=== PATIENT | male | born 1970 | race Caucasian/White ===

== ENCOUNTER 2022-09-01 06:43 | Inpatient (IN) | payer OTHER, SELFPAY ==
[2022-09-01] VITALS (26 sets, daily range): BP systolic 120–156; BP diastolic 63–101; PULSE 72–108; RESP 14–20; TEMP 36.3–37.7; O2SAT 95–99
--- NOTE | 2022-09-01 07:28 | CRLHL7_ITS ---
For Patients: As a result of the Century Cures Act, medical imaging exams and procedure reports are released immediately into your electronic medical record. You may view this report before your referring provider. If you have questions, please contact your health care provider. INDICATION: Left lower quadrant abdomen pain. TECHNIQUE: CT abdomen and pelvis acquired with 100 cc Isovue 370 IV contrast. COMPARISON: None. FINDINGS: Lower chest: Unremarkable. Liver: Unremarkable. Normal in size and attenuation. No suspicious masses. Gallbladder and bile ducts: Unremarkable. No stones or inflammation. No biliary dilatation. Pancreas: Unremarkable. No mass or inflammation. Spleen: Unremarkable. Normal in size. No masses. Adrenal glands: Unremarkable. No nodules. Kidneys: Unremarkable. No suspicious masses, stones, or hydronephrosis. GI tract: Severe sigmoid diverticulosis. Acute inflammation is present amongst diverticula in the proximal sigmoid. No abscess. However, there is free air scattered in the anterior abdomen. Remainder of the GI tract and appendix are normal. Vasculature: Abdominal aorta is normal in caliber. Mesenteric arteries are patent. Lymph nodes: No lymphadenopathy. Peritoneum/Abdominal Wall: Unremarkable. No sign of mass or infiltration. No free air or significant free fluid. Pelvis: Unremarkable. Bones: Unremarkable for age. IMPRESSION: Acute sigmoid diverticulitis with scattered free air consistent with a ashley perforation. No abscess. No other acute or significant findings. Please note that all CT scans at this facility use dose modulation, iterative reconstruction, and/or weight-based dosing when appropriate to reduce radiation dose to as low as reasonably achievable. Dictated by Serg Marrero MD @ 09/01/2022 8:55:41 AM (Electronically Signed)
--- NOTE | 2022-09-01 07:52 | ED_ITS ---
did not see this patient. signing to remove from cue. Siva HPI - General Adult General Date Seen: 09/01/22 Chief complaint: Abdominal Pain Stated complaint: Stomach feels like its about to burst Time Seen by Provider: 09/01/22 07:22 Source: patient Mode of arrival: ambulatory Limitations: no limitations History of Present Illness HPI narrative: Patient is a 51-year-old male who is visiting [place] while his son is attending a soccer camp. He felt well yesterday morning and then developed some abdominal pain after lunch. This got worse in the evening after eating some pizza. He tells me that he has had diverticulitis in the past although this was a clinical diagnosis that resolved without antibiotics apparently. He has had some chills but no fever. The pain was severe enough during the night that he was unable to sleep. He denies symptoms of acid reflux. He has only taken ibuprofen for the pain thus far. No nausea or vomiting. No diarrhea. He attempted to force himself to have a bowel movement but was unable. He does not believe that this is constipation related. Related Data Allergies Allergy/AdvReac Type Severity Reaction Status Date / Time Penicillins Allergy Severe Hives Verified 09/01/22 09:33 Review of Systems Narrative: Review of systems is outlined above otherwise noted to be negative. [facility] Medical History (Updated 09/05/22 @ 10:18 by Linda Paige MD) History of open sigmoidectomy ?Z98.890 - Other specified postprocedural states (ICD-10) ?Z90.49 - Acquired absence of other specified parts of digestive tract (ICD- 10) No significant past medical history Surgical History (Updated 09/01/22 @ 10:52 by Linda Paige MD) S/P pyloromyotomy, follow-up exam ?Z09 - Encounter for follow-up examination after completed treatment for conditions other than malignant neoplasm (ICD-10) Exam Narrative: Exam Narrative: Vitals noted. HEENT: Conjunctiva clear. Neck is supple without adenopathy, thyromegaly. Lungs: Clear to auscultation in all paz. No wheezes, rales, rhonchi. Heart: Regular rate and rhythm without murmur. Abdomen: He has tenderness in the left lower quadrant. No guarding, rigidity, rebound. Bowel sounds are normal. No palpable masses. No CVA tenderness. Extremities: No cyanosis or edema. Good distal pulses. Skin: No abnormalities noted of the exposed skin. Neurologic: Awake, alert, fully oriented. Neurologic exam is nonfocal. Const: Vital Signs, click to edit/add: Vital Signs - 24 hr 09/01/22 07:02 09/01/22 08:40 09/01/22 09:19 Temperature 98.3 F 99.7 F H Pulse Rate [Right Pulse Oximeter] 108 H 91 Respiratory Rate 18 18 Blood Pressure [Ri ght Upper Arm] 120/77 156/85 H Pulse Oximetry 95 Oxygen Delivery Me thod Room Air 09/01/22 09:27 09/01/22 09:30 09/01/22 10:00 Temperature 99.7 F H 99.8 F H Pulse Rate [Right Pulse Oximeter] 95 97 105 H Respiratory Rate 18 20 18 Blood Pressure [Ri ght Upper Arm] 124/101 H 141/92 H 134/92 H Pulse Oximetry 97 99 98 Oxygen Delivery Me thod Room Air Room Air Room Air Course Course Hospital Course: Patient seen and examined. Labs and CT of his abdomen are ordered. Reevaluation(s) Reevaluation #1: His labs revealed a white blood count of 15.6 with 89% neutrophils. Basic metabolic panel shows a BUN of 26 and a creatinine of 1.2 and a glucose of 158. LFTs are normal. Lipase is normal. CT of the abdomen pelvis with IV contrast shows extensive sigmoid diverticulosis with diverticulitis and free air indicating perforation. At this point a dose of ertapenem and a L of IV fluids are ordered along with Toradol 30 mg for pain. I discussed the case with Dr. Paige who will be coming in to see him. Vital Signs Vital signs: Initial Vital Signs Temperature 98.3 F 09/01/22 07:02 Temperature Source Temporal Artery Scan 09/01/22 07:02 Pulse Rate 108 H 09/01/22 07:02 Pulse Rhythm Regular 09/01/22 07:02 Respiratory Rate 18 09/01/22 07:02 Blood Pressure 120/77 09/01/22 07:02 Blood Pressure Mean 91 09/01/22 07:02 Blood Pressure Position Sitting 09/01/22 07:02 Pulse Oximetry 95 09/01/22 07:02 Oxygen Delivery Method Room Air 09/01/22 07:02 Vital Signs Temperature 98.3 F 09/01/22 07:02 Pulse Rate 108 H 09/01/22 07:02 Respiratory Rate 18 09/01/22 07:02 Blood Pressure 120/77 09/01/22 07:02 Pulse Oximetry 95 09/01/22 07:02 Oxygen Delivery Method Room Air 09/01/22 07:02 Temperature 98.3 F 09/05/22 11:00 Pulse Rate 84 09/05/22 11:00 Respiratory Rate 16 09/05/22 11:00 Blood Pressure 146/83 H 09/05/22 11:00 Pulse Oximetry 95 09/05/22 11:00 Oxygen Delivery Method Room Air 09/05/22 11:00 Medical Decision Making Lab Data Labs: Lab Results 09/01/22 09/01/22 09/01/22 Range/Units 07:28 07:45 10:19 WBC 15.59 H (4.50-11.00) K/uL RBC 5.05 (4.30-5.90) m/uL Hgb 15.1 (13.5-17.5) gm/dL Hct 45.1 (37.0-53.0) % MCV 89 (80-100) fL MCH 30 (26-34) pg MCHC 34 (32-36) gm/dL RDW Coeff of Tam 12.8 (11.5-15.5) % Plt Count 371 (140-440) K/uL Neut % (Auto) 88.6 H (42.0-72.0) % Lymph % (Auto) 4.2 L (20-44) % Greer % (Auto) 6.9 (0.0-11.0) % Eos % (Auto) 0.0 (0.0-7.0) % Baso % (Auto) 0.1 (0.0-3.0) % Neut # (Auto) 13.80 H (1.7-7.0) K/uL Lymph # (Auto) 0.70 L (0.90-2.90) K/uL Greer # (Auto) 1.10 H (0.00-0.90) K/UL Eos # (Auto) 0.00 (0.00-0.50) K/uL Baso # (Auto) 0.00 (0.00-0.30) K/uL Sodium 137 (135-149) mmol/L Potassium 4.1 (3.6-5.1) mmol/L Chloride 104 (96-114) mmol/L Carbon Dioxide 26 (20-32) mmol/L BUN 26 H (5-24) mg/dL Creatinine 1.2 (0.5-1.5) mg/dL Estimated GFR 74 ml/min Glucose 158 H (60-115) mg/dL Calcium 9.2 (8.4-10.6) mg/dL Total Bilirubin 0.9 (0.1-1.5) mg/dL Direct Bilirubin 0.1 (0.0-0.5) mg/dL AST 32 (12-35) U/L ALT 26 (4-50) U/L Alkaline Phosphatase 58 (40-150) U/L Total Protein 7.2 (6.0-8.3) g/dL Albumin 4.3 (3.3-5.0) g/dL Lipase 63 (23-300) U/L Urine Color Red A (Yellow) Urine Appearance Slightly Cloudy A (Clear) Urine pH 5.5 (5.0-8.5) Ur Specific [place] >= 1.030 (1.000-1.030) Urine Protein 2+ A (Negative) Urine Glucose (UA) Negative (Negative) Urine Ketones 2+ A (Negative) Urine Blood 3+ A (Negative) Urine Nitrite Positive A (Negative) Urine Bilirubin 1+ A (Negative) Urine Urobilinogen 1.0 (0.2-1.0) Ur Leukocyte Esterase Negative (Negative) Urine RBC 25-50 A (0-2) Urine WBC 5-10 A (0-5) Ur Squamous Epith Cells Moderate A (None-Few) Urine Bacteria Moderate A (None) WBC Casts Few A (None) Urine Mucus Moderate A (None) Blood Type A Positive Antibody Screen NEGATIVE Discharge Plan Discharge Clinical Impression: Nontraumatic perforation of large intestine, Diverticulitis Patient Disposition: Home, Self-Care Condition: Stable Activity Level: No strenuous activity Activity Detail: No lifting more than 20 pounds for 4-6 weeks Discharge Diet: Other Diet Detail: Ileostomy diet: Drink 8 to 10 cups of fluid per 24 hours. Avoid caffeine and high sugary drinks as these will stimulate the small intestine and increase stoma output. Foods that you should incorporate with each meal to thicken stool include bananas, cheese, pasta, rice, potatoes, bread, peanut butter and tapioca. Having one or two of these foods as a bedtime snack will also help keep the stool thicker overnight. Only consume about 4 ounces of fluid with each meal in order not to wash food through small intestine.
[2022-09-01 07:53] LABS: Basophils Percent Auto 0.1 % (0.0-3.0); Hematocrit 45.1 % (37.0-53.0); Hemoglobin* 15.1 gm/dL (13.5-17.5); Immature Granulocytes Pct Auto 0.2 %; Lymphocytes Percent Auto 4.2 % (20-44); Mean Corpuscular HGB Conc 34 gm/dL (32-36); Mean Corpuscular Hemoglobin 30 pg (26-34); Mean Corpuscular Volume 89 fL (80-100); Monocytes Percent Auto 6.9 % (0.0-11.0); Neutrophils Percent Auto 88.6 % (42.0-72.0); Platelet Count* 371 K/uL (140-440); RDW Coefficient of Variation % 12.8 % (11.5-15.5); Red Blood Count 5.05 m/uL (4.30-5.90); White Blood Count* 15.59 K/uL (4.50-11.00)
[2022-09-01 08:00] LABS: Slide Review Reflex No
[2022-09-01 08:02] LABS: Albumin* 4.3 g/dL (3.3-5.0)
[2022-09-01 08:03] LABS: Chloride* 104 mmol/L (96-114); Potassium* 4.1 mmol/L (3.6-5.1); Sodium* 137 mmol/L (135-149)
[2022-09-01 08:05] LABS: Aspartate Amino Transferase* 32 U/L (12-35); Bilirubin Direct* 0.1 mg/dL (0.0-0.5); Bilirubin Total* 0.9 mg/dL (0.1-1.5); Blood Urea Nitrogen* 26 mg/dL (5-24); Carbon Dioxide* 26 mmol/L (20-32); Creatinine* 1.2 mg/dL (0.5-1.5); Estimated Glomerular Filt Rate 74 ml/min; Total Protein* 7.2 g/dL (6.0-8.3)
[2022-09-01 08:06] LABS: Alanine Aminotransferase* 26 U/L (4-50); Alkaline Phosphatase* 58 U/L (40-150); Calcium* 9.2 mg/dL (8.4-10.6); Glucose* 158 mg/dL (60-115); Lipase* 63 U/L (23-300)
[2022-09-01] MEDS: KETOROLAC 30 MG/ML inj IVP (09:19)
[2022-09-01] MEDS: LACTATED RINGERS 1000 ML 1,000 ML 500 ML IV (09:20)
--- NOTE | 2022-09-01 09:41 | ED.NURSE ---
Dr. Paige in with patient for consult.
--- NOTE | 2022-09-01 10:17 | ED.NURSE ---
Per Raimundo LICENSED CLINICIAN, to start ertapenem at 1030.
[2022-09-01] MEDS: ERTAPENEM 1 GM in 0.9 % SODIUM CHLORIDE Mini-bag 100 ML IVPB (10:33)
--- NOTE | 2022-09-01 10:35 | W.ANESCHARGE ---
Anesthesia Charges Start Date/Time Anesthesia Start Date: 09/01/22 Anesthesia Start Time: 11:13 Stop Date/Time Anesthesia Stop Date: 09/01/22 Anesthesia Stop Time: 15:53 Summary Emergency: MDA
--- NOTE | 2022-09-01 10:49 | PM.GSHP ---
History of Present Illness History of Present Illness Date Seen: 09/01/22 Chief complaint: Stomach feels like its about to burst Narrative: Jarda Guerrero is a 51 year old male who presents to the ER today with abdominal pain. He states that he has been down in [place] from [facility] playing in a father sent soccer game. He states that he played yesterday and was drinking a large amount of water and then had some pizza and went to bed. Around 11:00 p.m. he developed pain in his left lower quadrant. This has been similar to pain that he has had previously which was thought to be diverticulitis. When he would move the pain would be worse. He had some nausea with this but no vomiting. Over the course of the evening his pain became much worse and he was unable to sleep. He states that he felt as though his abdomen was going to explode. Because of this he came into the emergency department for evaluation. He has had a low-grade fever since he has been in the emergency department. He states that he had a bowel movement yesterday. He states that his bowel movements are almost always loosen have been his whole life. He does not take any fiber supplements. He states that approximately 1 year ago he had left lower quadrant pain which was thought to be diverticulitis. This went away with a liquid diet and no antibiotics. This was not CT confirmed. Three weeks ago he had similar symptoms and again his symptoms went away with a liquid diet and no antibiotics. Again this is never been CT confirmed. He has never had a colonoscopy. His family history is significant for colon cancer in 1 maternal uncle. [facility] Medical History (Updated 09/01/22 @ 10:52 by Linda Paige MD) No significant past medical history Surgical History (Updated 09/01/22 @ 10:52 by Linda Paige MD) S/P pyloromyotomy, follow-up exam ?Z09 - Encounter for follow-up examination after completed treatment for conditions other than malignant neoplasm (ICD-10) Meds Home Medications and Allergies Allergies Allergy/AdvReac Type Severity Reaction Status Date / Time Penicillins Allergy Severe Hives Verified 09/01/22 09:33 Exam Narrative: Exam Narrative: General appearance: Alert, cooperative, and in no distress Eyes: PERRLA, eye lids clear, and sclera white HENT Head: Normocephalic Ears: External ears normal Pulmonary: Clear to auscultation bilaterally Cardiovascular Heart: Regular rate and rhythm Extremities: warm and well perfused Gastrointestinal Abdominal: Midline horizontal scar from prior pyloromyotomy as a child. He is tender in the left lower quadrant he does have guarding. Abdominal pain is diffuse. Musculoskeletal: Extremities: Upper: Both upper extremities have normal joint range of motion and intact strength. Lower: Both lower extremities have normal joint range of motion and intact strength. Skin: Normal skin color, texture, and turgor. Neurologic: No focal deficits Psychiatric: Alert, oriented, cooperative, normal affect. Const: Vital Signs, click to edit/add: Vital Signs - 24 hr 09/01/22 07:02 09/01/22 08:40 09/01/22 09:19 Temperature 98.3 F 99.7 F H Pulse Rate [Right Pulse Oximeter] 108 H 91 Respiratory Rate 18 18 Blood Pressure [Ri ght Upper Arm] 120/77 156/85 H Pulse Oximetry 95 Oxygen Delivery Me thod Room Air 09/01/22 09:27 09/01/22 09:30 09/01/22 10:00 Temperature 99.7 F H 99.8 F H Pulse Rate [Right Pulse Oximeter] 95 97 105 H Respiratory Rate 18 20 18 Blood Pressure [Ri ght Upper Arm] 124/101 H 141/92 H 134/92 H Pulse Oximetry 97 99 98 Oxygen Delivery Me thod Room Air Room Air Room Air Results Results Labs: White blood cell count is elevated at 15. BUN mildly elevated at 26. Creatinine 1.2; electrolytes within normal limits. LFTs and lipase are within normal limits. Abdomen CT scan report/results: report reviewed and image reviewed Additional studies: INDICATION: Left lower quadrant abdomen pain. TECHNIQUE: CT abdomen and pelvis acquired with 100 cc Isovue 370 IV contrast. COMPARISON: None. FINDINGS: Lower chest: Unremarkable. Liver: Unremarkable. Normal in size and attenuation. No suspicious masses. Gallbladder and bile ducts: Unremarkable. No stones or inflammation. No biliary dilatation. Pancreas: Unremarkable. No mass or inflammation. Spleen: Unremarkable. Normal in size. No masses. Adrenal glands: Unremarkable. No nodules. Kidneys: Unremarkable. No suspicious masses, stones, or hydronephrosis. GI tract: Severe sigmoid diverticulosis. Acute inflammation is present amongst diverticula in the proximal sigmoid. No abscess. However, there is free air scattered in the anterior abdomen. Remainder of the GI tract and appendix are normal. Vasculature: Abdominal aorta is normal in caliber. Mesenteric arteries are patent. Lymph nodes: No lymphadenopathy. Peritoneum/Abdominal Wall: Unremarkable. No sign of mass or infiltration. No free air or significant free fluid. Pelvis: Unremarkable. Bones: Unremarkable for age. IMPRESSION: Acute sigmoid diverticulitis with scattered free air consistent with a ashley perforation. No abscess. No other acute or significant findings. Please note that all CT scans at this facility use dose modulation, iterative reconstruction, and/or weight-based dosing when appropriate to reduce radiation dose to as low as reasonably achievable. Dictated by Serg Marrero MD @ 09/01/2022 8:55:41 AM Assessment and Plan Assessment and plan (1) Diverticulitis: Status: Acute (2) Nontraumatic perforation of large intestine: Status: Acute (3) Sepsis: Status: Acute (4) Peritonitis: Status: Acute Plan The patient is a 51-year-old male with perforated diverticulitis with peritonitis. He and I discussed diverticular disease as well as management of perforation. Because he has free air and a ashley perforation as well as peritonitis and a septic picture I explained that emergent surgery was necessary. We will plan for sigmoidectomy and a stoma. We discussed diverting ileostomy if I am able to safely lead section supervisor his colon verses an end colostomy if reconnection is not possible at the index operation. He understands that the stoma is not necessarily a permanent situation and the timing of stoma takedown depends on multiple factors but generally can occur within 6 months. We discussed risks of surgery including bleeding, injury to other structures, infection and recovery. He is agreeable to proceed and signed informed consent. We are planning on proceeding to the OR emergently this morning.
--- NOTE | 2022-09-01 10:59 | ED.NURSE ---
Antibiotic infusion complete. Raimundo from Surgery aware.
--- NOTE | 2022-09-01 11:24 | P.NB_ITS ---
Nerve Block Nerve Block Time Seen by Provider: 11:21 Date Seen: 09/01/22 Type of block requested by surgeon for post-operative analgesia: TAP Side: bilateral Time out performed: Yes Verification of patient name: Yes Verification of date of : Yes Site marking: site marked Name of person performing procedure: Amos Continuous monitoring Was continuous monitoring of O2 sat, B/P, nurse monitoring, recorded every 15 minutes?: Yes Procedure Checklist: sterile prep, needles and gloves Ultrasound guided. Images saved: Yes Medications given in 5ml increments after negative aspiration: Marcaine %: 0.25 mL: 30 Needle gauge: 20 and Exparel mL: 10 Patient tolerated procedure well: Yes Additional comments: Needle noted adjacent to nerve Block Charges Block Charge (with Pro Fee): TAP Bilateral Use of Ultrasound Machine for Block: Yes- US Guidance/pain block
[2022-09-01] MEDS: LACTATED RINGERS 1000 ML 1,000 ML 100 ML IV ×2 (12:38→21:20)
[2022-09-01] MEDS: LACTATED RINGERS 1000 ML 1,000 ML 125 ML IV ×2 (12:45→14:57)
--- NOTE | 2022-09-01 13:55 | SUR.OPER ---
Flashed Instruments: EEA sizers, used during procedure, batch # ([id number])
--- NOTE | 2022-09-01 15:54 | W.ANESCHARGE ---
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
--- NOTE | 2022-09-01 16:08 | P.GSOP_ITS ---
Operative Note Date of procedure: 09/01/22 Pre-op diagnosis: Perforated diverticulitis with peritonitis Post-op diagnosis: same Type of Procedure: 1. Exploratory laparotomy 2. Sigmoidectomy with reanastomosis 3. Diverting loop ileostomy Indications: the patient is a 51-year-old male who presented to the emergency department with abdominal pain. Workup revealed elevated white blood cell count as well as diffuse free air within the abdominal cavity. It appeared as though this was secondary to perforated diverticulitis. I discussed with the patient that this necessitated emergent surgery and he agreed to proceed. Procedure Description: After discussing the risks and benefits of the procedure, the patient signed informed consent.? The operative site was marked and the patient was brought to the operating room and placed on the operating table in supine position.? Care was taken to pad the patient's pressure points.?? The patient was then intubated by anesthesia.?? The anesthesiologist then performed TAP blocks. Please see his note for details. The patient was then placed in modified lithotomy position and a Tee catheter was placed. The abdomen was then prepped and draped in the usual sterile fashion. A midline incision was then created from just above the umbilicus to superior to the pubis. Dissection was taken down into the subcutaneous tissue using cautery. This was taken down to and through the fascia. The abdominal cavity was then entered and there was purulent fluid noted. This was suctioned. I was able to palpate the sigmoid colon which felt firm. I then placed the patient in slight Trendelenburg position and brought an Omni retractor into the field. The abdominal wall was then retracted to expose the pelvis and the small bowel was then packed into the upper right abdomen. I then noted a perforation of the anti mesenteric border of the sigmoid which appeared to be connected to a diverticulum. I began by incising the peritoneum on the lateral pelvic attachment of the sigmoid. Once I was able to mobilize the sigmoid medially, with care to stay on the sigmoid to avoid injury of the ureter and other pelvic structures, I identified an area of healthy sigmoid proximal to the perforation. I created a mesenteric window using cautery and divided the sigmoid using the a load DIVYA stapler. I then divided the mesentery of the sigmoid down to the superior rectum using the LigaSure. Once I reached this area I divided the superior rectum using a contour stapler. The specimen was marked with a stitch distally and sent to pathology. There was a small amount of bleeding in the mesentery of the rectum. This was oversewn with suture which resulted in he mostasis. I then examined the distal colon. It actually fell into the pelvis because the portion of sigmoid which was removed was quite redundant, however I mobilized the lateral peritoneal attachments of the descending colon using cautery. I mobilized this up to the splenic flexure. Again the colon fell easily into the pelvis and therefore I elected not to extend my incision to completely mobilize the splenic flexure since there was no tension. I used a Doppler to confirm that there was perfusion all the way to the staple line of the proximal colon. I then grasped the staple line with a Jeny clamp and, using careful dissection with a mosquito dissected away the pericolonic fat. Small bleeding vessels were ligated. Once this was done I removed the staple line with a scissor and sent the staple line to pathology as proximal margin (the anastomotic rings would also be included with this). I placed the anvil of a 31 mm EEA stapler into the opening and using a 2 0 Prolene created a pursestring suture. I then secured this suture around the anvil and again cleaned off the colonic fat. Small bleeding vessels were tied with 3-0 Vicryl. There was a small diverticulum which was included in the 2nd pursestring which was placed around the anvil using 2-0 Prolene. Once this was done I then performed a proctoscopy. The patient had 20 cm of rectum. There was stool in the rectal vault. I did have my assistant basketball coach manually push on the rectum and then I performed irrigation with tap water. Once the rectum was cleared of gross stool, using the dilators I then passed these sequentially. They passed easily into the rectal stump. I then passed the 31 mm EEA stapler through the anus and into the rectum. I was able to deploy the trocar through the staple line in the middle of the rectal stump. My assistant basketball coach then connected this to the trocar and I closed the stapler. I then placed a sterile glove and sleeve on to double check that there were no intervening structures or bowel in the way. I then fired the stapler in waited 30 seconds. I removed the stapler per manufacture's instructions and examined the anastomotic rings. These were both intact. I then performed proctoscopy. I was not able to visualize the staple line itself as there was still a small amount of stool lining the inside of the rectum, however there was no bleeding noted. A leak test was negative. I then scrubbed back in and the abdomen was examined. The small bowel was run from the ligament of Treitz to the ileocecal valve. There were no other signs of perforation or injury. I felt in the right and left upper quadrant. There were no pockets of purulence there. I did not feel any masses or inflammation in the upper abdomen. I then irrigated the abdomen with copious warm saline. This ran clear. I then chose an area on the abdominal wall lateral to the umbilicus on the right. I then created a circular incision in the skin using cautery. Dissection was taken down to the rectus fascia again using cautery. I then incised the rectus fascia with a cruciate incision. The rectus muscle fibers were and I was able then to create a cruciate incision in the posterior fascia. This was big enough to admit 2 fingers. I then identified a portion of ileum which was approximately 30 cm proximal to the ileocecal bowel. This came up easily through the stoma trephine. At this point a closing tray was obtained and I closed the fascia with looped 0 Maxon in a running fashion. Because of the purulence in the abdomen, I decided to leave a portion of the incision open because of risk of wound infection. Therefore I closed the superior middle and inferior aspects of the incision with 3-0 Vicryl dermal sutures and 4-0 Monocryl running subcuticular sutures, leaving a small area superior to the umbilicus as well as inferior to the umbilicus open. These were packed with iodoform gauze. Steri-Strips were placed over the sutured areas of the incision and a sterile dressing was applied. I then turned my attention to maturing the stoma. Using cautery I created an incision transversely through the anti mesenteric border of the ileum. I then matured the stoma in a Mary fashion to the dermis circumferentially. The stoma was well perfused and blood quite easily with each needle stick. I was able to pass my finger through both the proximal and distal limbs through the fascia. The suture line was hemostatic at the end the case, however because it had blood so easily while maturing the stoma, I placed Surgicel over the suture line before applying the stoma appliance to ensure hemostasis. The patient was then woken and transported to the recovery area in stable condition. ? The patient tolerated the procedure well. Findings: Perforation of the sigmoid with purulent peritonitis. Anesthesia: GETA Surgeon: Linda Paige MD Estimated blood loss (mL): 25 Additional Specimen Information: 1. Sigmoid colon, stitch distal 2. Proximal margin and anastomotic rings Condition: stable Disposition: PACU
[2022-09-01] MEDS: HYDROmorphone 0.5 mg/0.5 ml inj IVP ×2 (17:02→22:16)
[2022-09-01] MEDS: KETOROLAC 15 MG/ML inj IVP (19:31)
[2022-09-01] MEDS: CARBOXYMETHYLCELLULOSE (REFRESH PLUS) TEARS 1 DROP EYE-BOTH (19:32)
[2022-09-01] MEDS: SODIUM CHLORIDE 0.9 % (FLUSH) 10 ML SYRINGE IVF ×2 (19:32→22:17)
[2022-09-02] MEDS: HYDROmorphone 0.5 mg/0.5 ml inj IVP ×5 (02:09→13:36)
[2022-09-02] MEDS: KETOROLAC 15 MG/ML inj IVP ×3 (02:19→21:53)
[2022-09-02 02:25] VITALS: BP 116/79; PULSE 78; RESP 16; TEMP 36.7; O2SAT 97
--- NOTE | 2022-09-02 04:24 | PC.NURSE ---
: Pt's vss on ra, tolerating ice chips and whitt output adequate. Bowels absent but noted flatus in the ostomy bag this morning, was emptied once prior serosanguinous 10cc, stoma has dressing/mesh covered, nippled, midline incision has bottom 1/4 or so dressing with serosanguinous drainage, will be changed today, not weeping through gauze. Pain controlled with dilaudid/toradol, has turned and repositioned in bed, will attempt to stand up this morning.
[2022-09-02 06:54] LABS: Basophils Percent Auto 0.1 % (0.0-3.0); Eosinophils Percent Auto 0.1 % (0.0-7.0); Hematocrit 40.6 % (37.0-53.0); Hemoglobin* 13.3 gm/dL (13.5-17.5); Immature Granulocytes Pct Auto 0.2 %; Lymphocytes Percent Auto 9.6 % (20-44); Mean Corpuscular HGB Conc 33 gm/dL (32-36); Mean Corpuscular Hemoglobin 30 pg (26-34); Mean Corpuscular Volume 92 fL (80-100); Monocytes Percent Auto 7.2 % (0.0-11.0); Neutrophils Percent Auto 82.8 % (42.0-72.0); Platelet Count* 363 K/uL (140-440); RDW Coefficient of Variation % 13.4 % (11.5-15.5); Red Blood Count 4.43 m/uL (4.30-5.90); White Blood Count* 12.49 K/uL (4.50-11.00)
[2022-09-02 07:00] VITALS: BP 128/69; PULSE 92; RESP 16; TEMP 37.2; O2SAT 95
[2022-09-02 07:00] LABS: Slide Review Reflex No
[2022-09-02 07:02] LABS: Chloride* 104 mmol/L (96-114)
[2022-09-02 07:03] LABS: Potassium* 3.8 mmol/L (3.6-5.1); Sodium* 133 mmol/L (135-149)
[2022-09-02 07:05] LABS: Estimated Glomerular Filt Rate 92 ml/min
[2022-09-02 07:06] LABS: Blood Urea Nitrogen* 17 mg/dL (5-24); Calcium* 8.3 mg/dL (8.4-10.6); Carbon Dioxide* 28 mmol/L (20-32); Glucose* 113 mg/dL (60-115)
[2022-09-02] MEDS: LACTATED RINGERS 1000 ML 1,000 ML 100 ML IV (07:56)
[2022-09-02] MEDS: HYDROCODONE-ACETAMIN 5-325 MG 1 TAB PO ×4 (09:09→21:17)
[2022-09-02] MEDS: ERTAPENEM 1 GM in 0.9 % SODIUM CHLORIDE Mini-bag 100 ML IVPB (09:59)
[2022-09-02 12:08] LABS: Appearance Urine Slightly Cloudy (Clear); Bilirubin Urine 1+ (Negative); Blood Urine 3+ (Negative); Color Urine Red (Yellow); Glucose Urine Negative (Negative); Ketones Urine 2+ (Negative); Leukocyte Esterase Urine Negative (Negative); Nitrite Urine Positive (Negative); Protein Urine 2+ (Negative); Specific Gravity Urine >= 1.030 (1.000-1.030); pH Urine 5.5 (5.0-8.5)
[2022-09-02 12:24] LABS: RBC Urine 25-50 (0-2)
[2022-09-02 12:25] LABS: Squamous Epithelial Cell Urine Moderate (None-Few)
[2022-09-02 12:26] LABS: Bacteria Urine Moderate; Mucus Urine Moderate; White Blood Cell Casts Urine Few
--- NOTE | 2022-09-02 12:26 | PM.GSPN ---
Subjective Subjective Date Seen: 09/02/22 Interval history: Jarad he is doing reasonably well. Main issue is abdominal pain. He feels as though there is crampy pressure that builds up and then he will have a small amount of stoma output which helps. No nausea or vomiting. Has been taking in a small amount of p.o.. Has been up walking. Nay came out this morning and he has voided. He has had mostly edema in his stoma bag. Exam Narrative: Exam Narrative: General: No acute distress CV: Regular rate and rhythm Pulmonary: Clear to auscultation bilaterally Abdomen: Stoma is edematous. Small amount ecchymosis superiorly this is where there was a small hematoma in the submucosal plane during stoma maturation. Midline incision is clean and dry without erythema. Dressings changed today. Extremities: No edema. Const: Vital Signs, click to edit/add: Vital Signs - 24 hr 09/01/22 15:47 09/01/22 15:50 09/01/22 15:55 Temperature 97.4 F L Pulse Rate 77 78 74 Pulse Rate [Pulse Oximeter] Respiratory Rate 16 16 14 Blood Pressure 142/80 H 135/71 133/72 Blood Pressure [Ri ght Arm] Pulse Oximetry 95 96 97 Oxygen Delivery Me thod Room Air 09/01/22 16:00 09/01/22 16:05 09/01/22 16:10 Temperature 98.4 F Pulse Rate 74 78 76 Pulse Rate [Pulse Oximeter] Respiratory Rate 16 14 16 Blood Pressure 132/71 125/72 131/77 Blood Pressure [Ri ght Arm] Pulse Oximetry 97 98 97 Oxygen Delivery Me thod 09/01/22 16:15 09/01/22 16:30 09/01/22 16:40 Temperature 97.9 F Pulse Rate 75 Pulse Rate [Pulse Oximeter] 74 Respiratory Rate 15 16 Blood Pressure 129/76 Blood Pressure [Ri ght Arm] 144/83 H Pulse Oximetry 98 96 97 Oxygen Delivery Me thod Room Air 09/01/22 16:45 09/01/22 17:00 09/01/22 17:14 Temperature 97.9 F 98 F 97.9 F Pulse Rate 75 Pulse Rate [Pulse Oximeter] 72 73 Respiratory Rate 16 16 16 Blood Pressure Blood Pressure [Ri ght Arm] 139/75 140/75 H 144/83 H Pulse Oximetry 97 98 Oxygen Delivery Me thod Room Air Room Air Room Air 09/01/22 17:15 09/01/22 17:30 09/01/22 18:00 Temperature Pulse Rate Pulse Rate [Pulse Oximeter] 80 87 74 Respiratory Rate 16 16 16 Blood Pressure Blood Pressure [Ri ght Arm] 130/73 128/66 132/66 Pulse Oximetry 97 97 97 Oxygen Delivery Me thod Room Air Room Air Room Air 09/01/22 18:30 09/01/22 19:00 09/01/22 20:02 Temperature 97.9 F Pulse Rate Pulse Rate [Pulse Oximeter] 80 83 Respiratory Rate 16 16 Blood Pressure Blood Pressure [Ri ght Arm] 127/63 146/77 H 139/73 Pulse Oximetry 97 96 Oxygen Delivery Me thod Room Air Room Air 09/01/22 21:00 09/01/22 22:00 09/02/22 02:25 Temperature 98.2 F 98 F 98.1 F Pulse Rate Pulse Rate [Pulse Oximeter] 79 77 78 Respiratory Rate 16 16 16 Blood Pressure Blood Pressure [Ri ght Arm] 129/65 132/76 116/79 Pulse Oximetry 97 98 97 Oxygen Delivery Nh thod Room Air Room Air Room Air 09/02/22 07:00 09/02/22 07:00 Temperature 99.0 F Pulse Rate Pulse Rate [Pulse Oximeter] 92 92 Respiratory Rate 16 16 Blood Pressure Blood Pressure [Ri ght Arm] 128/69 Pulse Oximetry 95 Oxygen Delivery Me thod Room Air Labs/Imaging Labs Labs: White blood cell count is down to 12.4 Hemoglobin is 13.3 BMP shows that BUN has improved. Mildly hyponatremic. Progress Note: A&P Assessment and plan (1) History of open sigmoidectomy: Problem details: August 2022, with diverting loop ileostomy for perforated diverticulitis. Status: Acute (2) Ileostomy present: Status: Acute (3) Peritonitis: Status: Acute (4) Nontraumatic perforation of large intestine: Status: Acute (5) Hyponatremia: Status: Acute Plan The patient is a 51-year-old male postop day 1 status post open sigmoidectomy with diverting loop ileostomy for perforated diverticulitis with peritonitis. Overall he is doing well. -continue IV and p.o. pain meds p.r.n. -will switch maintenance fluids to normal saline given mild hyponatremia -continue with clear liquid diet though I did encourage the patient to go slowly as he will likely have an ileus. -continue IS and ambulation -will start Lovenox tonight. -continue IV antibiotics given peritonitis until patient afebrile and white blood cell count normalizes. -daily dressing changes with iodoform gauze. -we will need Wound ostomy teaching on Sunday.
[2022-09-02] MEDS: POTASSIUM CHLORIDE 10 MEQ in 0.9 % SODIUM CHLORIDE 1000 ml 1,000 ML 100 MEQ IV ×2 (13:35→21:53)
[2022-09-02 15:00] VITALS: BP 144/84; PULSE 88; RESP 16; TEMP 37.3; O2SAT 92
[2022-09-02 15:52] VITALS: TEMP 37.3
--- NOTE | 2022-09-02 18:40 | PC.NURSE ---
End of shift: Patient alert and oriented x4, pleasant and cooperative. Patient tolerating clears. Tee removed at 0905. Patient ambulating to Bathroom and voiding well. Bowel sounds still absent but noted flatus in the ostomy bag throughout shift. Ostomy emptied once w/serosanguinous 200cc, and then again 75cc w/liquid poop. stoma is a dark red color (normal per MD) nippled, midline incision changed by MD and packed. Dressing changes to be done once daily w/idoform gauze and covered w/Mepilex dressing. Pain controlled with dilaudid/toradol/[place].
[2022-09-02 19:53] VITALS: BP 130/77; PULSE 81; RESP 16; TEMP 36.9; O2SAT 92
[2022-09-02] MEDS: ENOXAPARIN 40 MG/0.4 ML INJ SUBCUT ×2 (21:17→21:18)
[2022-09-02 21:50] VITALS: BP 139/80; PULSE 78; RESP 18; TEMP 36.6; O2SAT 96
[2022-09-02] MEDS: SODIUM CHLORIDE 0.9 % (FLUSH) 10 ML SYRINGE IVF (21:53)
[2022-09-03] MEDS: HYDROCODONE-ACETAMIN 5-325 MG 1 TAB PO ×6 (01:56→21:53)
[2022-09-03 03:00] VITALS: BP 135/78; PULSE 77; RESP 18; TEMP 36.7; O2SAT 96
[2022-09-03] MEDS: KETOROLAC 15 MG/ML inj IVP ×4 (03:55→21:54)
[2022-09-03] MEDS: SODIUM CHLORIDE 0.9 % (FLUSH) 10 ML SYRINGE IVF ×2 (03:56→21:53)
--- NOTE | 2022-09-03 06:02 | PC.NURSE ---
: Pain controlled with norco q4h and toradol q6h, ambulated halls twice, ostomy drainage pink/brown/yellow around 50cc, nipped/dark red with mesh, two dressings intact, flatus emptied a couple of times, notes some bloating this morning thus informed to limit po, denies nausea, vss on ra.
[2022-09-03 06:35] LABS: Basophils Absolute Auto 0.02 K/uL (0.00-0.30); Basophils Percent Auto 0.2 % (0.0-3.0); Eosinophils Absolute Auto 0.08 K/uL (0.00-0.50); Eosinophils Percent Auto 0.8 % (0.0-7.0); Hematocrit 40.9 % (37.0-53.0); Hemoglobin* 13.3 gm/dL (13.5-17.5); Immature Granulocytes Abs Auto 0.01 K/uL (0.00-0.30); Immature Granulocytes Pct Auto 0.1 %; Lymphocytes Percent Auto 8.9 % (20-44); Mean Corpuscular HGB Conc 33 gm/dL (32-36); Mean Corpuscular Hemoglobin 30 pg (26-34); Mean Corpuscular Volume 92 fL (80-100); Monocytes Percent Auto 11.3 % (0.0-11.0); Neutrophils Percent Auto 78.7 % (42.0-72.0); Platelet Count* 361 K/uL (140-440); RDW Coefficient of Variation % 13.2 % (11.5-15.5); Red Blood Count 4.44 m/uL (4.30-5.90); White Blood Count* 10.42 K/uL (4.50-11.00)
[2022-09-03 07:00] VITALS: BP 120/81; PULSE 83; RESP 18; TEMP 36.7; O2SAT 95
[2022-09-03 07:20] LABS: Chloride* 104 mmol/L (96-114); Potassium* 3.9 mmol/L (3.6-5.1); Sodium* 132 mmol/L (135-149)
[2022-09-03 07:23] LABS: Est. Creatinine Clearance* 112.61; Estimated Glomerular Filt Rate 92 ml/min; Slide Review Reflex No
[2022-09-03 07:24] LABS: Blood Urea Nitrogen* 19 mg/dL (5-24); Calcium* 8.1 mg/dL (8.4-10.6); Carbon Dioxide* 28 mmol/L (20-32); Glucose* 117 mg/dL (60-115)
[2022-09-03 07:44] LABS: C Reactive Protein* 23.4 mg/dL (0.5-1.0)
[2022-09-03] MEDS: ERTAPENEM 1 GM in 0.9 % SODIUM CHLORIDE Mini-bag 100 ML IVPB (09:46)
--- NOTE | 2022-09-03 10:05 | PM.GSPN ---
Subjective Subjective Date Seen: 09/03/22 Interval history: Jarad is doing well. He has been ambulating and using his IS. Denies nausea. He does feel somewhat bloated. He feels as though things are starting to move. No issues urinating but feels as though his urine is concentrated. Exam Narrative: Exam Narrative: General: No acute distress CV: Regular rate and rhythm Respiratory: Clear to auscultation bilaterally; patient is splinting. Abdomen: Distended. Hypoactive bowel sounds noted on the left. Outer dressing taken down and no erythema noted. Stoma is edematous. Bowel sweat present in the bag. Extremities without edema. Const: Vital Signs, click to edit/add: Vital Signs - 24 hr 09/02/22 15:00 09/02/22 15:00 09/02/22 15:52 Temperature 99.2 F 99.2 F Pulse Rate [Pulse Oximeter] 88 88 Respiratory Rate 16 16 Blood Pressure [Ri ght Arm] 144/84 H Pulse Oximetry 92 Oxygen Delivery Me thod Room Air 09/02/22 19:53 09/02/22 21:50 09/03/22 03:00 Temperature 98.4 F 98 F 98.1 F Pulse Rate [Pulse Oximeter] 81 78 77 Respiratory Rate 16 18 18 Blood Pressure [Ri ght Arm] 130/77 139/80 135/78 Pulse Oximetry 92 96 96 Oxygen Delivery Me thod Room Air Room Air Room Air 09/03/22 07:00 09/03/22 07:00 Temperature 98.0 F Pulse Rate [Pulse Oximeter] 83 83 Respiratory Rate 18 18 Blood Pressure [Ri ght Arm] 120/81 Pulse Oximetry 95 Oxygen Delivery Me thod Room Air Labs/Imaging Labs Labs: White blood cell count is normal at 10 Hemoglobin stable at 13.3 Remains mildly hyponatremic with a sodium of 132. Remainder of electrolytes are normal. CRP is elevated at 23, down from 24 yesterday. Progress Note: A&P Assessment and plan (1) Hyponatremia: Status: Acute (2) Ileostomy present: Status: Acute (3) History of open sigmoidectomy: Problem details: August 2022, with diverting loop ileostomy for perforated diverticulitis. Status: Acute Plan The patient is a 51-year-old male who is postop day 2 status post open sigmoidectomy with diverting loop ileostomy for perforated sigmoid colon likely secondary to diverticulitis with purulent peritonitis. He is doing well. We then spent time today again discussing the timeline for recovery from the initial surgery as well as stoma takedown. We also discussed that having a stoma can be overwhelming, however we will try to support him however we can with Education and troubleshooting. He understands that there will be some trial and error when it comes to pouching. However the goal is that he will have all the tools he needs to care for his stoma competently. -will place a free water restriction on him today given that sodium is slowly trending down. -will continue maintenance IV fluids but will decrease these. Patient feels urine is concentrated, however would like to avoid volume overload which will prolong his ileus -continue ambulation and IS -continue IV antibiotics until taking p.o. -nurse will do midline dressing changes well as stoma bag change. Teaching will be done with patient's friend when she comes later today. Okay for patient to shower. -continue Lovenox for DVT prophylaxis. -I have ordered nutrition to see him to discuss ileostomy diet -stoma nurse consult this week; stoma education on going.
[2022-09-03 10:26] LABS: C Reactive Protein* 24.5 mg/dL (0.5-1.0)
[2022-09-03 11:00] VITALS: BP 131/75; PULSE 94; RESP 18; TEMP 36.7; O2SAT 94
[2022-09-03] MEDS: POTASSIUM CHLORIDE 10 MEQ in 0.9 % SODIUM CHLORIDE 1000 ml 1,000 ML 75 MEQ IV (12:04)
[2022-09-03 15:00] VITALS: BP 143/85; PULSE 92; RESP 18; TEMP 37.4; O2SAT 94
--- NOTE | 2022-09-03 18:46 | PC.NURSE ---
End of shift: Patient alert and oriented x4, pleasant and cooperative. Patient tolerating clears. Patient ambulating to Bathroom and voiding well. Bowel sounds active at times. Ostomy emptied once w/serosanguineous 50cc, stoma is a dark red color, midline incision changed, 4x4 Mepilex and 4x8 Mepilex used and packed with Iodoform gauze. Dressing changes to be done once daily. Pain controlled with Toradol/[place].
[2022-09-03 22:00] VITALS: BP 144/78; PULSE 90; RESP 18; TEMP 37.9; O2SAT 94
[2022-09-03 22:41] VITALS: BP 132/74; PULSE 90; PULSE 95; RESP 18; TEMP 38.1; O2SAT 91
[2022-09-04] MEDS: HYDROCODONE-ACETAMIN 5-325 MG 1 TAB PO ×6 (02:07→20:42)
[2022-09-04] MEDS: POTASSIUM CHLORIDE 10 MEQ in 0.9 % SODIUM CHLORIDE 1000 ml 1,000 ML 75 MEQ IV (02:11)
[2022-09-04 03:00] VITALS: BP 141/87; PULSE 90; RESP 18; TEMP 36.8; O2SAT 92
[2022-09-04] MEDS: KETOROLAC 15 MG/ML inj IVP ×4 (03:56→22:24)
[2022-09-04] MEDS: SODIUM CHLORIDE 0.9 % (FLUSH) 10 ML SYRINGE IVF (03:57)
[2022-09-04 06:17] LABS: Basophils Absolute Auto 0.04 K/uL (0.00-0.30); Basophils Percent Auto 0.4 % (0.0-3.0); Eosinophils Absolute Auto 0.19 K/uL (0.00-0.50); Hematocrit 39.9 % (37.0-53.0); Immature Granulocytes Abs Auto 0.02 K/uL (0.00-0.30); Immature Granulocytes Pct Auto 0.2 %; Lymphocytes Percent Auto 13.1 % (20-44); Mean Corpuscular HGB Conc 33 gm/dL (32-36); Mean Corpuscular Hemoglobin 30 pg (26-34); Mean Corpuscular Volume 92 fL (80-100); Monocytes Percent Auto 12.7 % (0.0-11.0); Neutrophils Absolute Auto 6.83 K/uL (1.7-7.0); Neutrophils Percent Auto 71.6 % (42.0-72.0); Platelet Count* 396 K/uL (140-440); Red Blood Count 4.33 m/uL (4.30-5.90); White Blood Count* 9.54 K/uL (4.50-11.00)
[2022-09-04 06:21] LABS: Slide Review Reflex No
[2022-09-04 06:30] LABS: Chloride* 105 mmol/L (96-114); Potassium* 3.8 mmol/L (3.6-5.1); Sodium* 134 mmol/L (135-149)
[2022-09-04 06:33] LABS: Est. Creatinine Clearance* 112.61; Estimated Glomerular Filt Rate 92 ml/min
[2022-09-04 06:34] LABS: Blood Urea Nitrogen* 19 mg/dL (5-24); Calcium* 8.3 mg/dL (8.4-10.6); Carbon Dioxide* 24 mmol/L (20-32); Glucose* 104 mg/dL (60-115)
--- NOTE | 2022-09-04 06:46 | PC.NURSE ---
: Pt still receiving norco 1 tab q4h and toradol q6h with relief, noted abdomen firm no rebound tenderness or redness around sites, minimal drainage on lower drsg, had a temp of 100.5 around midnight encouraged tcdb and IS use as oximetry was 90-91%, ambulated a couple of times, fever subsided other vss on ra this morning. Pt had 200cc brown liquid sediment
[2022-09-04 07:00] VITALS: BP 127/76; PULSE 86; PULSE 90; RESP 18; TEMP 36.7; O2SAT 94
[2022-09-04] MEDS: ERTAPENEM 1 GM in 0.9 % SODIUM CHLORIDE Mini-bag 100 ML IVPB (10:00)
--- NOTE | 2022-09-04 10:46 | NUTR.NU ---
RDN with MD consult for ileostomy diet education. Patient was provided diet education related to new ileostomy. Education provided on following a low fiber diet for the next ~4 weeks or per MD recommendation. Education included recommendations on following a low-fiber diet of less than 13 grams of fiber per day and included foods that are recommended and not recommended. Verbal and written information as well as sample menus provided from [facility] on nutrition therapy for ileostomy and low-fiber diet. Patient and significant other verbalized understanding. RDN answered questions and patient and significant other have no concerns at this time. Patient and significant very accepting of diet education. RDN's contact information was provided and patient was encouraged to contact RDN with questions. RDN will continue to monitor PRN for additional diet education.
[2022-09-04 11:00] VITALS: BP 147/88; PULSE 79; RESP 18; TEMP 36.6; O2SAT 95
--- NOTE | 2022-09-04 12:27 | P.GSPN_ITS ---
Subjective Subjective Date Seen: 09/04/22 Interval history: Jarad thornton is feeling well today. His pain is much better and has needed less pain medication. He states that overnight he did not feel well. He felt very bloated and had a low-grade fever of up to 100.4. Then he had a large amount of stoma output which helped his discomfort. He has been up ambulating. He has not wanted to take in a significant amount of p.o. because of his abdominal distension. Yesterday his friend assisted with his dressing change and it went well. He feels as though he is not able to take very deep breaths because of his abdominal distension. Exam 2 Narrative: Exam Narrative: General: No acute distress CV: Regular rate and rhythm Respiratory: Breathing nonlabored on room air Abdomen: Mildly distended. Stoma edematous with bilious output. Incision without erythema. Const: Vital Signs, click to edit/add: Vital Signs - 24 hr 09/03/22 15:00 09/03/22 15:00 09/03/22 22:00 Temperature 99.3 F 100.3 F H Pulse Rate [Pulse Oximeter] 92 92 90 Respiratory Rate 18 18 18 Blood Pressure [Ri ght Arm] 143/85 H 144/78 H Pulse Oximetry 94 94 Oxygen Delivery Me thod Room Air Room Air 09/03/22 22:41 09/03/22 22:41 09/04/22 03:00 Temperature 100.5 F H 98.2 F Pulse Rate [Pulse Oximeter] 90 95 90 Respiratory Rate 18 18 18 Blood Pressure [Ri ght Arm] 132/74 141/87 H Pulse Oximetry 91 92 Oxygen Delivery Me thod Room Air Room Air 09/04/22 07:00 09/04/22 07:00 Temperature 98.1 F Pulse Rate [Pulse Oximeter] 90 86 Respiratory Rate 18 18 Blood Pressure [Ri ght Arm] 127/76 Pulse Oximetry 94 Oxygen Delivery Me thod Room Air Labs/Imaging Labs Labs: Remains mildly hyponatremic at 134. CRP is up to 26. White blood cell count is normal. Hemoglobin is stable. Progress Note: A&P Assessment and plan (1) Hyponatremia: Status: Acute (2) Ileostomy present: Status: Acute (3) History of open sigmoidectomy: Problem details: August 2022, with diverting loop ileostomy for perforated diverticulitis. Status: Acute Plan The patient is a 51-year-old male who is postop day 3 status post exploratory laparotomy and sigmoidectomy with diverting loop ileostomy for perforated diverticulitis with peritonitis. He is doing well today except does have an elevated CRP and had 1 low-grade fever overnight. He has had some return of bowel function. - continue IV antibiotics we discussed risk of abscess, wound infection and anastomotic leak as well as atelectasis which could be causes for his fever and rising CRP. However, his temperature is normal and he has not been tachycardic so we will continue to manage expectantly. -because of his distension I will not advance his diet just yet. -stoma teaching today. Will also have his friend help with dressing change as well -continue Lovenox for DVT prophylaxis -continue ambulation and IS. -recheck labs tomorrow.
--- NOTE | 2022-09-04 14:28 | PC.NURSE ---
Ostomy teaching: With his significant other at bedside we discussed and also demonstrated an ostomy appliance change. Stoma is beefy red and round with sutures intact and stoma is currently measuring at 38mm. Using a soft tissue removed a small amount of discharge that came out of the stoma. They have great questions and discussed signs to watch for as far as changes in color of the stoma. He was wanting to know if he should carry supplies with him always and explain that is a good idea as you never know if your out and about and have complications from the appliance leaking. Will be stopping in again tomorrow as he wants the significant other to change the appliance once before they go home. Also did set him up with Don to receive samples and will send him with a couple appliance changes until he is able to get his supplies. Will also put in a nutrition consult to see him regarding diet. He was also wanting to follow up with a Stoma Nurse after discharge to make sure things were going ok. He wanted to know if he could see me. I explain that I only see patients in the hospital. He is more than willing to drive to see one. Will see about getting him set up with someone at time of discharge.
[2022-09-04 15:00] VITALS: BP 142/86; PULSE 76; PULSE 79; RESP 18; TEMP 37; O2SAT 95
[2022-09-04] MEDS: 0.9 % SODIUM CHLORIDE 1000 ml 1,000 ML 50 ML IV (16:32)
[2022-09-04 19:00] VITALS: BP 154/96; PULSE 80; RESP 18; TEMP 36.9; O2SAT 94
[2022-09-04] MEDS: ENOXAPARIN 40 MG/0.4 ML INJ SUBCUT (20:43)
[2022-09-04 23:00] VITALS: BP 159/94; PULSE 113; RESP 18; TEMP 36.8; O2SAT 95
[2022-09-05] MEDS: HYDROCODONE-ACETAMIN 5-325 MG 1 TAB PO ×7 (01:27→22:55)
[2022-09-05 03:00] VITALS: BP 144/89; PULSE 72; RESP 16; TEMP 36.8; O2SAT 94
[2022-09-05] MEDS: KETOROLAC 15 MG/ML inj IVP ×4 (04:46→22:55)
--- NOTE | 2022-09-05 05:23 | PC.NURSE ---
Patient is a pleasant and cooperative 51 year old male status post op ileostomy. Pain to abdomen is managed with oral hydrocodone and iv ketorlac. Abdomen is round, firm and distended to touch. Bowel sounds hypoactive x 4 quadrants. Ileostomy patent, stoma beefy red in color and draining green liquid stool. [employer] provided demonstration on bag emptying, patient able to verbalize back how to empty bag. Up independently in room and hallway, patient up at 0300 and ambulating in hallway. Patient slept well, states that he was able to sleep on his left side for the first time since surgery. Lung sounds clear, denies any shortness of breath or cough.
[2022-09-05 07:00] VITALS: BP 156/90; PULSE 78; RESP 16; TEMP 36.8; O2SAT 95
[2022-09-05 07:07] LABS: Basophils Absolute Auto 0.04 K/uL (0.00-0.30); Basophils Percent Auto 0.5 % (0.0-3.0); Eosinophils Absolute Auto 0.27 K/uL (0.00-0.50); Eosinophils Percent Auto 3.4 % (0.0-7.0); Hematocrit 39.4 % (37.0-53.0); Hemoglobin* 12.8 gm/dL (13.5-17.5); Immature Granulocytes Abs Auto 0.05 K/uL (0.00-0.30); Immature Granulocytes Pct Auto 0.6 %; Lymphocytes Percent Auto 18.4 % (20-44); Mean Corpuscular HGB Conc 33 gm/dL (32-36); Mean Corpuscular Hemoglobin 30 pg (26-34); Mean Corpuscular Volume 92 fL (80-100); Neutrophils Absolute Auto 4.95 K/uL (1.7-7.0); Neutrophils Percent Auto 63.1 % (42.0-72.0); Platelet Count* 398 K/uL (140-440); RDW Coefficient of Variation % 12.8 % (11.5-15.5); Red Blood Count 4.27 m/uL (4.30-5.90); White Blood Count* 7.86 K/uL (4.50-11.00)
[2022-09-05 07:08] LABS: Slide Review Reflex No
[2022-09-05 07:32] LABS: Chloride* 105 mmol/L (96-114); Sodium* 136 mmol/L (135-149)
[2022-09-05 07:35] LABS: Est. Creatinine Clearance* 112.61; Estimated Glomerular Filt Rate 92 ml/min
[2022-09-05 07:36] LABS: Blood Urea Nitrogen* 19 mg/dL (5-24); Calcium* 8.4 mg/dL (8.4-10.6); Carbon Dioxide* 26 mmol/L (20-32); Glucose* 91 mg/dL (60-115)
[2022-09-05 08:04] LABS: C Reactive Protein* 24.6 mg/dL (0.5-1.0)
--- NOTE | 2022-09-05 10:14 | PM.GSPN ---
Subjective Subjective Date Seen: 09/05/22 Interval history: Jarad states that his pain is slowly improving but he is frustrated because his abdomen is so distended. He has not been taking in much p.o. because he does not want to feel more distended. He continues to have small amount of bilious output from his stoma bag. He was very happy with his inpatient stoma consult. A lot of his questions were answered. He states that he has some itchiness around his incision. Exam Narrative: Exam Narrative: General: No acute distress CV: Regular rate Respiratory: Breathing nonlabored on room air Abdomen: Distended. Somewhat firm. Midline incision with a small amount of erythema on the medial aspect of the closed portion of the incision. One of the Steri-Strips was removed and the erythema appears to be away from the incision itself. Wound base clean. Stoma is edematous. There is bilious output in the stoma bag. I am able to digitally probe stoma which goes down through the fascia. Const: Vital Signs, click to edit/add: Vital Signs - 24 hr 09/04/22 11:00 09/04/22 15:00 09/04/22 15:00 Temperature 97.9 F 98.6 F Pulse Rate [Pulse Oximeter] 79 79 76 Respiratory Rate 18 18 18 Blood Pressure [Ri ght Arm] 147/88 H 142/86 H Pulse Oximetry 95 95 Oxygen Delivery Me thod Room Air Room Air 09/04/22 19:00 09/04/22 23:00 09/05/22 03:00 Temperature 98.4 F 98.2 F 98.2 F Pulse Rate [Pulse Oximeter] 80 113 H 72 Respiratory Rate 18 18 16 Blood Pressure [Ri ght Arm] 154/96 H 159/94 H 144/89 H Pulse Oximetry 94 95 94 Oxygen Delivery Me thod Room Air Room Air Room Air 09/05/22 07:00 Temperature 98.2 F Pulse Rate [Pulse Oximeter] 78 Respiratory Rate 16 Blood Pressure [Ri ght Arm] 156/90 H Pulse Oximetry 95 Oxygen Delivery Me thod Room Air Labs/Imaging Labs Labs: White blood cell count remains normal. Hemoglobin is stable. Electrolytes within normal limits. CRP is down slightly to 24 from 26 Progress Note: A&P Assessment and plan (1) Ileostomy present: Status: Acute (2) History of open sigmoidectomy: Problem details: August 2022, with diverting loop ileostomy for perforated diverticulitis. Status: Acute (3) Ileus following gastrointestinal surgery: Status: Acute Plan Jarad is a 51-year-old male who is postop day 4 status post sigmoidectomy for perforated diverticulitis with purulent peritonitis and loop ileostomy. -still with ileus though he has had antegrade bowel function with small amount of bilious output from his stoma. He may continue with clears however he understands and has been abiding by being careful with his p.o. intake. If he develops nausea will have to make him NPO. -because of decreased p.o. intake, will increase maintenance IV fluids slightly today - if urine output decreases or he show signs of volume depletion, will increase this; I suspect he is volume overloaded because of infectious process. -continue IV antibiotics. Elevated CRP raises concern for development of abscess or possible anastomotic leak. Currently afebrile and without tachycardia. Explained the rationale behind holding off on any further workup. No indication for any other infectious workup at this time. -he has been ambulating and up in a chair. Continue this and continue IS -Lovenox for DVT prophylaxis -will need to remain inpatient at least 1 day after he starts regular diet. Will work on possibly referral closer to home for stoma cares as outpatient.
[2022-09-05] MEDS: ERTAPENEM 1 GM in 0.9 % SODIUM CHLORIDE Mini-bag 100 ML IVPB (10:51)
[2022-09-05] MEDS: 0.9 % SODIUM CHLORIDE 1000 ml 1,000 ML 75 ML IV (10:53)
[2022-09-05 11:00] VITALS: BP 146/83; PULSE 84; RESP 16; TEMP 36.8; O2SAT 95
--- NOTE | 2022-09-05 13:26 | PC.NURSE ---
Stop in to see patient after seeing him yesterday. Asked if he had anymore questions and he asked about using a alcohol wipe after emptying his bag. Explain that either a alcohol wipe or tissue should be used to make away any drainage as this should hopefully prevent any odor also. He fears that he smells a lot and has been asking his visitors if he does. Reassured him that there was no odor that I detected. He is also worried that things are not progressing. Explain to him that it will take time and everyone is different and just keep doing what he is doing as far as activity and diet. He had no further questions and will continue to check in within until he is discharged.
[2022-09-05 15:00] VITALS: BP 159/83; PULSE 83; PULSE 84; RESP 16; TEMP 36.7; O2SAT 95
[2022-09-05 19:00] VITALS: BP 150/94; PULSE 72; RESP 16; TEMP 37.3; O2SAT 95
--- NOTE | 2022-09-05 19:22 | PC.NURSE ---
: Patient doing well today with ambulation and pain control. Patient abdomen remains distended. Patient emptying own ostomy. Patient following 1200 ml fluid restriction. patient able to voice needs.
[2022-09-05] MEDS: ENOXAPARIN 40 MG/0.4 ML INJ SUBCUT (21:34)
[2022-09-05] MEDS: SODIUM CHLORIDE 0.9 % (FLUSH) 10 ML SYRINGE IVF (22:55)
[2022-09-05 23:00] VITALS: BP 156/91; PULSE 84; RESP 16; TEMP 37.6; O2SAT 91
[2022-09-06] VITALS (7 sets, daily range): BP systolic 147–168; BP diastolic 85–98; PULSE 81–98; RESP 16–26; TEMP 36.7–37.4; O2SAT 92–98
[2022-09-06] MEDS: 0.9 % SODIUM CHLORIDE 1000 ml 1,000 ML 75 ML IV ×2 (02:00→23:51)
[2022-09-06] MEDS: ACETAMINOPHEN 325 MG TABLET 650 MG PO (02:04)
[2022-09-06] MEDS: HYDROCODONE-ACETAMIN 5-325 MG 1 TAB PO ×5 (04:51→23:43)
--- NOTE | 2022-09-06 05:46 | PC.NURSE ---
Shift note: Pt is doing well. Ostomy appears pink and draining water stool. Pt had low grade fever of 99.9 at the start of the shift but has been stable this morning. Rated pain level between 4 and 7. Systolic Bp has remained above 140 throughout the shift. Alert and oriented x4, pleasant and cooperated with care and treatment. Abdomen continuous to be large and tense but not tender. Pt has not pass gas and had no BM. Incision appeared clean and dry.
[2022-09-06] MEDS: KETOROLAC 15 MG/ML inj IVP ×2 (06:36→13:25)
[2022-09-06] MEDS: SODIUM CHLORIDE 0.9 % (FLUSH) 10 ML SYRINGE IVF (06:37)
[2022-09-06 06:43] LABS: Basophils Absolute Auto 0.02 K/uL (0.00-0.30); Basophils Percent Auto 0.2 % (0.0-3.0); Eosinophils Percent Auto 2.4 % (0.0-7.0); Hematocrit 39.2 % (37.0-53.0); Hemoglobin* 13.1 gm/dL (13.5-17.5); Immature Granulocytes Abs Auto 0.13 K/uL (0.00-0.30); Immature Granulocytes Pct Auto 1.6 %; Lymphocytes Percent Auto 13.5 % (20-44); Mean Corpuscular HGB Conc 33 gm/dL (32-36); Mean Corpuscular Hemoglobin 30 pg (26-34); Mean Corpuscular Volume 90 fL (80-100); Monocytes Percent Auto 12.1 % (0.0-11.0); Neutrophils Absolute Auto 5.84 K/uL (1.7-7.0); Neutrophils Percent Auto 70.2 % (42.0-72.0); Platelet Count* 417 K/uL (140-440); RDW Coefficient of Variation % 12.2 % (11.5-15.5); Red Blood Count 4.35 m/uL (4.30-5.90); White Blood Count* 8.32 K/uL (4.50-11.00)
[2022-09-06 07:08] LABS: Slide Review Reflex No
[2022-09-06 07:09] LABS: Chloride* 104 mmol/L (96-114)
[2022-09-06 07:10] LABS: Potassium* 3.9 mmol/L (3.6-5.1); Sodium* 138 mmol/L (135-149)
[2022-09-06 07:12] LABS: Creatinine* 0.9 mg/dL (0.5-1.5); Est. Creatinine Clearance* 125.13; Estimated Glomerular Filt Rate 105 ml/min
[2022-09-06 07:13] LABS: Blood Urea Nitrogen* 16 mg/dL (5-24); Calcium* 8.7 mg/dL (8.4-10.6); Carbon Dioxide* 29 mmol/L (20-32); Glucose* 101 mg/dL (60-115)
[2022-09-06 07:38] LABS: C Reactive Protein* 19.4 mg/dL (0.5-1.0)
--- NOTE | 2022-09-06 09:06 | CRLHL7_ITS ---
For Patients: As a result of the Century Cures Act, medical imaging exams and procedure reports are released immediately into your electronic medical record. You may view this report before your referring provider. If you have questions, please contact your health care provider. INDICATION: Abdominal distention. Perforated sigmoid diverticulitis. TECHNIQUE: And upright views the abdomen and pelvis. COMPARISON: Is made with an abdominopelvic CT September 01, 2022. FINDINGS: Air-fluid level within the stomach. Multiple air-fluid levels within dilated small bowel loops. Findings should reflect partial small bowel obstruction. Postsurgical change from a right lower quadrant colostomy. Small amount of free air likely related to surgery. Infiltrate or atelectasis left lung base. IMPRESSION: Postoperative partial small bowel obstruction. Radiographic followup recommended after appropriate treatment. Minimal free air. Diverting colostomy right lower quadrant. Dictated by Joseph Man MD @ 09/06/2022 10:11:41 AM (Electronically Signed)
[2022-09-06] MEDS: ERTAPENEM 1 GM in 0.9 % SODIUM CHLORIDE Mini-bag 100 ML IVPB (09:30)
[2022-09-06 10:33] LABS: Magnesium* 2.1 mg/dL (1.5-2.6)
--- NOTE | 2022-09-06 11:54 | P.GSPN_ITS ---
Subjective Subjective Date Seen: 09/06/22 Interval history: Jarad thornton is somewhat frustrated because his abdomen is quite distended though overall his pain is improving. This morning his nurse called my partner for evaluation. An x-ray was ordered which showed distended loops of small bowel. This was concerning for possible small-bowel obstruction. After this Jarad put out approximately 250 mL into his stoma bag. He feels that he is less distended now. He has not been taking in much p.o. because of the abdominal distension. He continues to ambulate and use IS. Exam Narrative: Exam Narrative: General: No acute distress Respiratory: Clear to auscultation bilaterally CV: Regular rate and rhythm Abdomen: Distended. Bowel sounds hypoactive. Stoma is pink. This was interrogated yesterday and was found to be patent. He does have bilious output in the bag, approximately 20 mL. There is some formed output on the stoma itself as well but this is minimal. The superior aspect of the inferior wound does have some mild blanching erythema on the skin. Const: Vital Signs, click to edit/add: Vital Signs - 24 hr 09/05/22 15:00 09/05/22 15:00 09/05/22 19:00 Temperature 98.1 F 99.1 F Pulse Rate [Pulse Oximeter] 84 83 72 Respiratory Rate 16 16 16 Blood Pressure [Ri ght Arm] 159/83 H 150/94 H Pulse Oximetry 95 95 Oxygen Delivery Me thod Room Air Room Air 09/05/22 23:00 09/05/22 23:00 09/06/22 03:00 Temperature 99.6 F 98.8 F Pulse Rate [Pulse Oximeter] 84 84 84 Respiratory Rate 16 16 16 Blood Pressure [Ri ght Arm] 156/91 H 147/96 H Pulse Oximetry 91 92 Oxygen Delivery Me thod Room Air Room Air 09/06/22 07:00 09/06/22 07:00 Temperature 98.4 F Pulse Rate [Pulse Oximeter] 83 83 Respiratory Rate 16 16 Blood Pressure [Ri ght Arm] 151/85 H Pulse Oximetry 92 Oxygen Delivery Me thod Room Air Labs/Imaging Labs Labs: White blood cell count remains normal. No left shift. Hemoglobin is stable. Electrolytes within normal limits. CRP is 19 from 24 Imaging Imaging: Abdominal x-ray done this morning FINDINGS: Air-fluid level within the stomach. Multiple air-fluid levels within dilated small bowel loops. Findings should reflect partial small bowel obstruction. Postsurgical change from a right lower quadrant colostomy. Small amount of free air likely related to surgery. Infiltrate or atelectasis left lung base. IMPRESSION: Postoperative partial small bowel obstruction. Radiographic followup recommended after appropriate treatment. Minimal free air. Diverting colostomy right lower quadrant. Dictated by Joseph Man MD @ 09/06/2022 10:11:41 AM4. Progress Note: A&P Assessment and plan (1) Ileus following gastrointestinal surgery: Status: Acute (2) Hyponatremia: Status: Acute (3) Ileostomy present: Status: Acute (4) History of open sigmoidectomy: Problem details: August 2022, with diverting loop ileostomy for perforated diverticulitis. Status: Acute (5) Diverticulitis: Status: Acute (6) Nontraumatic perforation of large intestine: Status: Acute Plan The patient is a 51-year-old male who is postop day 5 status post ex lap in sigmoidectomy with primary anastomosis and diverting loop ileostomy. -he has an ileus verses possible partial early small bowel obstruction. He has had a small amount of bilious output for the past 3 days however his abdomen remains distended. We discussed possible NG tube placement though he feels somewhat better at this point. I did make him NPO. -because he is NPO I have increased his IV fluids -electrolytes all within normal limits. -reassure that white count is normal in CRP is improving. Will continue IV antibiotics. -if patient has not improved by tomorrow I will plan on a CT scan to look for ot her intra-abdominal process. -continue Lovenox for DVT prophylaxis. -have changed wet to dry dressings to Vashe - if the erythema is still present in the wound tomorrow then I will open the inferior aspect of the incision.
[2022-09-06] MEDS: 0.9 % SODIUM CHLORIDE 1000 ml 1,000 ML 100 ML IV (15:27)
--- NOTE | 2022-09-06 15:54 | PC.NURSE ---
End of shift: Patient alert and oriented x4, pleasant and cooperative. Patient NPO d/t bloating and discomfort. Patient ambulating to Bathroom and voiding well. Bowel sounds hypoactive. Ostomy emptied 3x stoma is beefy red in color, midline incision steri strips c/D/I. Dressing change done today with Mepilex, Vashe, 4x4 kerlex wet to dry. Dressing changes to be done once daily. Pain controlled with Toradol/[place].
[2022-09-06] MEDS: ENOXAPARIN 40 MG/0.4 ML INJ SUBCUT (21:32)
[2022-09-06] MEDS: IBUPROFEN 400 MG TABLET 800 MG PO (21:33)
--- NOTE | 2022-09-06 22:00 | PC.NURSE ---
End of Shift: Pt pleasant and cooperative throughout shift. Redness noted around surgical site at start of shift, mid shift redness worsening. Margins marked with skin pen. MD advanced diet to full liquids, pt had some yogurt, tolerating well so far. Tordal d/c'd, pt expressed concerns. MD contacted, ibuprofen 800mg Q8H PRN verbal order taken and entered. Pain well-controlled with [place] and Ibuprofen ranging between 4-5/10. Pt ambulating independently, independent with emptying ostomy bag, increasing output noted. Abdominal distention slightly improved.
[2022-09-07 03:00] VITALS: BP 163/92; PULSE 92; RESP 24; TEMP 37.2; O2SAT 95
[2022-09-07] MEDS: HYDROCODONE-ACETAMIN 5-325 MG 1 TAB PO ×4 (03:44→22:17)
--- NOTE | 2022-09-07 05:35 | PC.NURSE ---
END OF SHIFT NOTE: POST OP DAY 5. PT PLEASANT AND COOPERATIVE. A&Ox3. DENIES CP, SOB, N/V. AMBULATES INDEPENDENTLY WITHIN ROOM. VSS ON RA; AFEBRILE. COLOSTOMY BEEFY RED AND NIPPLED WITH LOOSE BROWN OUTPUT. ERYTHEMA TO LEFT OF PT?S MIDLINE INCISION THAT IS OUTLINED FROM PREVIOUS SHIFT. REDNESS APPEARS TO BE RECEDING. MIDLINE INCISION IS WET TO DRY PACKED WITH MEPILEX COVERING. SCANT OLD DRAINAGE ON MEPILEX. ABD DISTENDED, BS ACTIVE?x4 QUADRANTS.?PT PROVIDES OWN OSTOMY CARES. CALL LIGHT WITHIN PT?S REACH.?
[2022-09-07 06:48] LABS: Basophils Absolute Auto 0.02 K/uL (0.00-0.30); Basophils Percent Auto 0.2 % (0.0-3.0); Eosinophils Absolute Auto 0.18 K/uL (0.00-0.50); Eosinophils Percent Auto 1.8 % (0.0-7.0); Hematocrit 38.3 % (37.0-53.0); Hemoglobin* 12.7 gm/dL (13.5-17.5); Immature Granulocytes Abs Auto 0.06 K/uL (0.00-0.30); Immature Granulocytes Pct Auto 0.6 %; Lymphocytes Percent Auto 15.2 % (20-44); Mean Corpuscular HGB Conc 33 gm/dL (32-36); Mean Corpuscular Hemoglobin 30 pg (26-34); Mean Corpuscular Volume 91 fL (80-100); Monocytes Percent Auto 10.5 % (0.0-11.0); Neutrophils Absolute Auto 7.02 K/uL (1.7-7.0); Neutrophils Percent Auto 71.7 % (42.0-72.0); Platelet Count* 425 K/uL (140-440); RDW Coefficient of Variation % 12.4 % (11.5-15.5); Red Blood Count 4.23 m/uL (4.30-5.90)
[2022-09-07 07:03] LABS: Chloride* 102 mmol/L (96-114); Potassium* 4.2 mmol/L (3.6-5.1); Sodium* 138 mmol/L (135-149)
[2022-09-07 07:06] LABS: Creatinine* 0.9 mg/dL (0.5-1.5); Est. Creatinine Clearance* 125.13; Estimated Glomerular Filt Rate 105 ml/min
[2022-09-07 07:07] LABS: Blood Urea Nitrogen* 13 mg/dL (5-24); Calcium* 8.4 mg/dL (8.4-10.6); Carbon Dioxide* 29 mmol/L (20-32)
[2022-09-07 07:19] LABS: Slide Review Reflex No
[2022-09-07 07:32] LABS: C Reactive Protein* 23.7 mg/dL (0.5-1.0)
[2022-09-07 07:51] VITALS: BP 143/83; PULSE 69; RESP 16; TEMP 36.8; O2SAT 93
[2022-09-07 08:00] LABS: Glucose* 104 mg/dL (60-115)
[2022-09-07] MEDS: ERTAPENEM 1 GM in 0.9 % SODIUM CHLORIDE Mini-bag 100 ML IVPB (10:09)
[2022-09-07 11:00] VITALS: BP 136/88; PULSE 66; RESP 18; TEMP 37.1; O2SAT 95
--- NOTE | 2022-09-07 11:26 | P.GSPN_ITS ---
Subjective Subjective Date Seen: 09/07/22 Interval history: Tri feels significantly better today. He has had over 2 L of ileostomy output. Abdominal distention is better. He has decreased his pain meds and again is overall feeling well. Has tolerated full liquids overnight. He did have a fever of up to 99 overnight however. Exam Narrative: Exam Narrative: General: No acute distress CV: Regular rate and rhythm Respiratory: Breathing nonlabored on room air Abdomen less distended today. Appropriately tender for the postoperative state. Still was some erythema around his lower incision at the superior aspect. This was anesthetized and opened today. No purulent fluid drained, however, there was some serous fluid. Stoma remains pink and proud with copious bilious fluid in the bag. Extremities: No edema. Const: Vital Signs, click to edit/add: Vital Signs - 24 hr 09/06/22 15:00 09/06/22 15:00 09/06/22 19:00 Temperature 98.8 F 99.3 F Pulse Rate [Pulse Oximeter] 81 81 98 Respiratory Rate 20 20 20 Blood Pressure [Ri ght Arm] 164/98 H 168/96 H Pulse Oximetry 95 98 Oxygen Delivery Me thod Room Air Room Air 09/06/22 20:16 09/06/22 23:00 09/06/22 23:00 Temperature 99.3 F 99.0 F Pulse Rate [Pulse Oximeter] 92 92 Respiratory Rate 26 H 24 Blood Pressure [Ri ght Arm] 168/89 H Pulse Oximetry 96 Oxygen Delivery Me thod Room Air 09/07/22 03:00 09/07/22 07:51 Temperature 98.9 F 98.2 F Pulse Rate [Pulse Oximeter] 92 69 Respiratory Rate 24 16 Blood Pressure [Ri ght Arm] 163/92 H 143/83 H Pulse Oximetry 95 93 Oxygen Delivery Me thod Room Air Room Air Labs/Imaging Labs Labs: White blood cell count remains normal without a left shift. CRP is up though to 23. Electrolytes normal. Progress Note: A&P Assessment and plan (1) Ileus following gastrointestinal surgery: Status: Acute (2) Ileostomy present: Status: Acute (3) History of open sigmoidectomy: Problem details: August 2022, with diverting loop ileostomy for perforated diverticulitis. Status: Acute Plan Patient is a 51-year-old male who is postop day 6 status post exploratory laparotomy, sigmoidectomy with primary anastomosis and diverting loop ileostomy. He does have return of bowel function and is been having significant output from his ileostomy is overall feeling much better. Does however still have a very low-grade fever with an elevated CRP. He certainly intra-abdominal process is on the differential, however with the resolution of his ileus and how much better he is feeling this could also be explained by his wound. This was opened up further today. -advanced diet to low fiber; patient has been going slowly with p.o. intake -change ertapenem to p.o. Cipro Flagyl -recheck labs tomorrow - follow lytes since stoma output high -saline lock -Imodium ordered on discharge - given continued abdominal distension and ileus which is still resolving will not start yet -continue IS and ambulation -Lovenox for DVT prophylaxis -patient is friend Tawana has been instructed on his wound dressings and will be able to help him on discharge. -he should be sent home with some stoma bags -referral made to [facility] wound ostomy nurse as well as Madhuri (pt should be seen in 1-2 weeks) -Will also need outpatient nutrition consult
[2022-09-07] MEDS: IBUPROFEN 400 MG TABLET 800 MG PO ×2 (11:55→20:03)
[2022-09-07 15:00] VITALS: BP 135/94; PULSE 63; RESP 16; TEMP 36.4; O2SAT 95
[2022-09-07] MEDS: LIDOCAINE 1% MDV 20 ML INJECTION (15:40)
--- NOTE | 2022-09-07 16:42 | PC.NURSE ---
Pt pleasant. Pt alert and oriented. Pt IND in room. VSS. Pt on a full liquid diet and tolerating well. Pt changed to therapeutic diet and has tolerated it well.?Pt has had pain ranging from 4-6. See EMAR for intervention. The surgeon changed the dressing on Pt abdomen this AM. Pt saline locked. Pt provides own ostomy care independently. ?
--- NOTE | 2022-09-07 17:51 | PC.NURSE ---
Pt walked in halls x 1 during shift. Pt's goal is to walk in halls two more times before bed.
[2022-09-07 19:00] VITALS: BP 144/84; PULSE 85; RESP 18; TEMP 36.8; O2SAT 94
[2022-09-07] MEDS: metroNIDAZOLE 500 MG TABLET PO (21:02)
[2022-09-07] MEDS: ENOXAPARIN 40 MG/0.4 ML INJ SUBCUT (21:03)
[2022-09-07] MEDS: CIPROFLOXACIN 500 MG TABLET PO (21:03)
--- NOTE | 2022-09-07 22:40 | PC.NURSE ---
End of shift [id number]: Pt A&O. Pleasant and cooperative. VSS. Denies n/v. Pt having abd pain rating it a 6-7/10. PRN Ibuprofen and [place]?given with stated relief. Abdomen dressings c/d/i.?Pt ind and walked in paz x1 this evening. Stoma is beefy red and having liquid output. Pt on 1200cc fluid restriction. Tolerating fluids. ?
[2022-09-07 23:00] VITALS: BP 144/88; PULSE 85; RESP 18; TEMP 36.7; O2SAT 95
[2022-09-08] MEDS: HYDROCODONE-ACETAMIN 5-325 MG 1 TAB PO ×4 (03:27→17:54)
[2022-09-08 07:05] LABS: Basophils Absolute Auto 0.04 K/uL (0.00-0.30); Basophils Percent Auto 0.4 % (0.0-3.0); Eosinophils Absolute Auto 0.24 K/uL (0.00-0.50); Eosinophils Percent Auto 2.5 % (0.0-7.0); Hematocrit 40.1 % (37.0-53.0); Hemoglobin* 13.2 gm/dL (13.5-17.5); Immature Granulocytes Pct Auto 1.1 %; Lymphocytes Percent Auto 17.7 % (20-44); Mean Corpuscular HGB Conc 33 gm/dL (32-36); Mean Corpuscular Hemoglobin 30 pg (26-34); Mean Corpuscular Volume 90 fL (80-100); Monocytes Percent Auto 11.3 % (0.0-11.0); Neutrophils Absolute Auto 6.34 K/uL (1.7-7.0); Platelet Count* 442 K/uL (140-440); RDW Coefficient of Variation % 12.3 % (11.5-15.5); Red Blood Count 4.44 m/uL (4.30-5.90); White Blood Count* 9.47 K/uL (4.50-11.00)
[2022-09-08 07:17] LABS: Chloride* 98 mmol/L (96-114); Potassium* 4.2 mmol/L (3.6-5.1); Sodium* 138 mmol/L (135-149)
[2022-09-08 07:18] LABS: Slide Review Reflex No
[2022-09-08 07:20] LABS: Est. Creatinine Clearance* 112.61; Estimated Glomerular Filt Rate 92 ml/min
[2022-09-08 07:21] LABS: Blood Urea Nitrogen* 11 mg/dL (5-24); Carbon Dioxide* 33 mmol/L (20-32); Glucose* 103 mg/dL (60-115)
[2022-09-08 07:35] LABS: C Reactive Protein* 23.2 mg/dL (0.5-1.0)
[2022-09-08 08:00] VITALS: BP 133/84; PULSE 71; RESP 16; TEMP 36.7
[2022-09-08] MEDS: CIPROFLOXACIN 500 MG TABLET PO ×2 (08:47→22:11)
[2022-09-08] MEDS: metroNIDAZOLE 500 MG TABLET PO ×2 (08:47→22:11)
--- NOTE | 2022-09-08 11:04 | NUTR.NU ---
RDN visited with patient and significant other per their request. Patient and significant other had questions regarding diet moving forward status post stoma and ileostomy placement. RDN answered all questions. Plan is for patient to follow up with nutrition therapy visit in clinic setting 1-2 weeks after discharge. RDN waiting for referral to be placed and will call patient to set up appointment at that time. Patient is aware and in agreement of this plan. Patient and significant other had no other questions/concerns at this time. RDN's contact information was provided and were encouraged to call with any questions or concerns.
--- NOTE | 2022-09-08 11:48 | P.GSPN_ITS ---
Subjective Subjective Date Seen: 09/08/22 Interval history: Patient is overall doing okay this morning. He is excited to take a shower later today. His pain is been well controlled. He has been able to ambulate the halls without difficulty. He tolerated a soft diet for breakfast. No nausea, but felt full very quickly and admits to still not having much of an appetite. There has been liquid output from his ostomy, but not much gas has been passing. No fevers overnight. Exam Const: Vital Signs, click to edit/add: Vital Signs - 24 hr 09/07/22 15:00 09/07/22 19:00 09/07/22 23:00 Temperature 97.6 F 98.3 F Pulse Rate [Pulse Oximeter] 63 85 85 Respiratory Rate 16 18 18 Blood Pressure [Le ft Arm] Blood Pressure [Ri ght Arm] 135/94 H 144/84 H Pulse Oximetry 95 94 Oxygen Delivery Me thod Room Air Room Air 09/07/22 23:00 09/08/22 08:00 09/08/22 08:00 Temperature 98.1 F 98.0 F Pulse Rate [Pulse Oximeter] 85 71 71 Respiratory Rate 18 16 16 Blood Pressure [Le ft Arm] 133/84 Blood Pressure [Ri ght Arm] 144/88 H Pulse Oximetry 95 Oxygen Delivery Me thod Room Air Room Air Labs/Imaging Labs Labs: No evidence of leukocytosis. CRP is stable at 23.2. Imaging Imaging: No new imaging Progress Note: A&P Assessment and plan (1) Ileus following gastrointestinal surgery: Status: Acute (2) Ileostomy present: Status: Acute (3) History of open sigmoidectomy: Problem details: August 2022, with diverting loop ileostomy for perforated diverticulitis. Status: Acute Plan Patient is a 51-year-old male who is postop day 7 status post exploratory laparotomy, sigmoidectomy with primary anastomosis and diverting loop ileostomy. Patient has had very slow return of bowel function, but is tolerating a soft diet. Will continue to advance gradually and recommend continued ambulation for patient. -advanced diet to low fiber -continue with oral Cipro Flagyl -continue IS and ambulation -Lovenox for DVT prophylaxis -continue with b.i.d. dressing changes while in the hospital, his friend will be doing once daily dressing changes at home. -he should be sent home with some stoma bags -referral made to [facility] wound ostomy nurse as well as Madhuri (pt should be seen in 1-2 weeks) Anticipate discharge possibly tomorrow.
[2022-09-08 12:00] VITALS: BP 127/77; PULSE 74; RESP 17; TEMP 36.7; O2SAT 95
--- NOTE | 2022-09-08 14:43 | PC.NURSE ---
VSS on RA, BS active, passing gas into ileostomy pouch, 100 ml of green/brown liquid stool. Tolerating low fiber diet well w/ decreased appetite, and denies N/V. Pain controlled with PRN [place]. Abdomen mildly distended and tender upon palpation. Pt reports feeling less bloated. Pt showered, ileostomy pouch changed and midline incision dressing change was completed by SO with staff instruction. Ambulating frequently in the hallway. Dressing supplies gathered for DC pending tomorrow.
[2022-09-08 15:00] VITALS: BP 125/80; BP 140/81; PULSE 62; PULSE 80; RESP 16; RESP 20; TEMP 36.6; TEMP 37.4; O2SAT 94; O2SAT 98
--- NOTE | 2022-09-08 17:01 | PC.NURSE ---
Pt rating his pain 4 out of 10. VS wnl parameters, dressing CDI. Ostomy has small amt of liquid green drainage, appliance changed this am with drsg and is intact. Reviewed low fiber with diet. Tray ordered. Plan d/c tomorrow to home, Ali will do dressing changes and ostomy care for Jarad. He will go to [facility] for wound care r/to his ostomy. Outpatient dietary consult at [place]. Don martin has already arrived at his house. Continue plan of care.
--- NOTE | 2022-09-08 18:06 | PC.NURSE ---
Pt [facility] in [facility]. [place] 1 tab po for pain 5 out of 10. Tolerated 100% of low fiber diet.
[2022-09-08 19:00] VITALS: BP 136/75; PULSE 87; RESP 18; TEMP 36.7; O2SAT 98
[2022-09-08 19:40] VITALS: PULSE 87; RESP 18
[2022-09-08] MEDS: IBUPROFEN 400 MG TABLET 800 MG PO (22:11)
[2022-09-08] MEDS: ENOXAPARIN 40 MG/0.4 ML INJ SUBCUT (22:12)
--- NOTE | 2022-09-08 22:44 | PC.NURSE ---
[id number]: Patient up independently. No IV in place. Abdominal dressings dry and intact. Rates abd. pain 5/10, tolerable at time of inspections. Belly distention noted, pt. states unchanged. Minimal amount of output into ileostomy. Would like ibuprofen @ . Report to LORETTA Maddox.
[2022-09-09 03:00] VITALS: RESP 16
--- NOTE | 2022-09-09 06:11 | PC.NURSE ---
Pt up independently. Completes all care of ileostomy bag, stool remains liquid. Bowels sounds present. Ibuprofen @ HS for minor discomfort. Slept soundly through night. Pt has no complaints.
[2022-09-09] MEDS: IBUPROFEN 400 MG TABLET 800 MG PO (06:33)
[2022-09-09 07:30] VITALS: BP 119/68; PULSE 76; RESP 16; TEMP 36.8; O2SAT 95
[2022-09-09 07:35] LABS: Chloride* 100 mmol/L (96-114); Sodium* 138 mmol/L (135-149)
[2022-09-09 07:36] LABS: Potassium* 4.1 mmol/L (3.6-5.1)
[2022-09-09 07:38] LABS: Est. Creatinine Clearance* 112.61; Estimated Glomerular Filt Rate 92 ml/min
[2022-09-09 07:39] LABS: Blood Urea Nitrogen* 14 mg/dL (5-24); Calcium* 9.1 mg/dL (8.4-10.6); Carbon Dioxide* 28 mmol/L (20-32); Glucose* 109 mg/dL (60-115)
[2022-09-09 07:53] LABS: C Reactive Protein* 18.4 mg/dL (0.5-1.0)
[2022-09-09] MEDS: metroNIDAZOLE 500 MG TABLET PO (09:19)
[2022-09-09] MEDS: CIPROFLOXACIN 500 MG TABLET PO (09:19)
--- NOTE | 2022-09-09 10:48 | P.DS_ITS ---
DS: Providers Provider Date Seen: 09/09/22 Date of admission: 09/01/22 16:40 Primary care physician: Not a Local Provider Admitting Clinician: Linda Paige MD Consults: 09/03/22 10:19 Consult to Nutrition [CONS] Routine Comment: Reason for consult:: Miscellaneous Comment: ileostomy diet education 09/04/22 14:44 Consult to Nutrition [CONS] Routine Comment: Reason for consult:: Nutritional Consult Comment: Has new ileostomy Attending Physician on discharge: Linda Paige MD DS: Summary Hospital Course Hospital Course: The patient presented to the emergency department on 09/01/2022 with fever and tachycardia as well as abdominal pain. He was found to have perforated diverticulitis. He went to the OR emergently for exploratory laparotomy, sigmoidectomy and diverting ileostomy. Postoperatively he did have an ileus which began to resolve on postop day 5. He had some erythema around his abdominal wound which was further opened. The erythema resolved and patient was educated on dressing changes for when he goes home. He was discharged with oral antibiotics, to complete a 10 day course. At the time of discharge patient was tolerating regular diet, pain was well co ntrolled, ambulating without difficulty, ileostomy was working well with patient comfortable with dressing changes and stoma cares. Time Spent with Patient Time attestation: Total time spent providing and/or coordinating discharge services: Exam Narrative: Exam Narrative: General: Alert and oriented, no acute distress. Abdomen: Dressings were taken down. The inferior opening does have some fibrinous exudate at the base of the wound, some fascial sutures appreciated, fascia is intact. Granulation tissue is present within about 60% of the wound bed, there is some murky drainage in the wound bed itself. Superior opening with granulation tissue, very minimal fibrinous exudate. No surrounding erythema or induration. Stoma is in place, beefy red and active. Abdomen is soft, nontender nondistended. Const: Vital Signs, click to edit/add: Vital Signs - 24 hr 09/08/22 12:00 09/08/22 15:00 09/08/22 15:00 Temperature 98.1 F 98 F 99.4 F Pulse Rate [Left A pical] 62 Pulse Rate [Pulse Oximeter] 74 62 80 Respiratory Rate 17 16 20 Blood Pressure [Le ft Arm] 127/77 125/80 140/81 H Pulse Oximetry 95 98 94 Oxygen Delivery Me thod Room Air Room Air Room Air 09/08/22 19:00 09/08/22 19:40 09/09/22 03:00 Temperature 98.1 F Pulse Rate [Left A pical] 87 87 Pulse Rate [Pulse Oximeter] Respiratory Rate 18 18 16 Blood Pressure [Le ft Arm] 136/75 Pulse Oximetry 98 Oxygen Delivery Me thod Room Air DS: Data Data Completed and Pending Labs on day of discharge: Labs from last 24 hours 09/09/22 06:20 Sodium 138 Potassium 4.1 Chloride 100 Carbon Dioxide 28 BUN 14 Creatinine 1.0 Estimated Creat Clear 112.61 Estimated GFR 92 Glucose 109 Calcium 9.1 C-Reactive Protein 18.4 H Discharge Plan Discharge Disposition: Home, Self-Care Date of Admission: 09/01/22 16:40 Attending Provider on Discharge: Lashanda Wilson Primary Care Provider: Provider,Not a Local Condition: Stable Anticipated Discharge Date/Time: 09/09/22 10:46 Discharge Medications: New hydrocodone-acetaminophen 5-325 mg Tablet 1 tab PO Q4H PRN (Reason: Pain) Qty: 25 0RF ciprofloxacin HCl 500 mg tablet 500 mg PO BID Qty: 8 0RF metronidazole 500 mg tablet 500 mg PO BID Qty: 8 0RF loperamide [Imodium A-D] 2 mg capsule 2 mg PO QID PRN (Reason: loose stool) Qty: 120 0RF Rx Instructions: Use when stoma output is consistently greater than 1500 mL per day and does not respond to dietary changes. Take 1-2 capsules up to 4 times daily; 30 minutes prior to meals and at bedtime. Start with 1 capsule and increase as needed. Discharge Orders: Discharge Order (Routine); Ordered 09/09/22 Ordered By: Lashanda Wilson Patient Education: Ileostomy Care (DC), Ileostomy Diet (GEN) Additional Instructions: Pain control: You were prescribed a pain medication. This medication contains acetaminophen (Tylenol). If you are taking your prescribed pain pills 4 times daily, do not take additional acetaminophen. As your pain improves, you can try taking acetaminophen instead of the prescribed pain pill. It is ok to take Ibuprofen or Naproxen (per directions on packaging). This medication helps with inflammation and swelling. Please call if you are experiencing severe pain, nausea, vomiting, difficulty urinating, fever or your stoma output completely stops over 1-2 days. Activity Level: No strenuous activity Activity Detail: No lifting more than 20 pounds for 4-6 weeks Discharge Diet: Other Diet Detail: Ileostomy diet: Drink 8 to 10 cups of fluid per 24 hours. Avoid caffeine and high sugary drinks as these will stimulate the small intestine and increase stoma output. Foods that you should incorporate with each meal to thicken stool include bananas, cheese, pasta, rice, potatoes, bread, peanut butter and tapioca. Having one or two of these foods as a bedtime snack will also help keep the stool thicker overnight. Only consume about 4 ounces of fluid with each meal in order not to wash food through small intestine. Follow Up Appointments: Linda Paige MD [Staff Physician] - Provider,Not a Local [Primary Care Provider] - Forms: [facility] Inst[facility] Discharge Comments: Please refer patient to both [facility] at the [facility] for stoma follow up and/or Madhuri jones RN [phone] for ongoing stoma cares and assessment. Outpatient nutrition consult.
[2022-09-09] MEDS: HYDROCODONE-ACETAMIN 5-325 MG 1 TAB PO (10:54)
--- NOTE | 2022-09-09 13:12 | PC.NURSE ---
Please see eMar for meds provided to Jarad on day shift. Eval by Dr. Wilson. Pt's dressing removed for shower. 375 out in brown liquid from ileostomy. Pt's sig. other performed dressing change under supervision of Sobeida BURGOS. El is comfortable and knowledgeable about wound and ostomy care. [place] one tablet given prior to d/c for pain 4 out of 10. Pt and sig other Ali verbalized understanding of d/c diagnosis, home meds, pain management, wound care w/ dressing, ileostomy care, f/up appt and sx to report urgently to physician. Ambulatory d/c to home with personal belongings @ 1155am with family members as transportation.
== END 2022-09-09 11:55 | disposition home or self-care (01) | DRG 329 ==
LOC: ED 10:03 → SS 16:35 → MEDSURG 16:36 → SS 16:53 → MEDSURG 16:54
PROVIDERS: Surgery; Admitting Provider Surgery; Emergency Provider Family Medicine; Visit Provider Surgery
PROC: 0DTN0ZZ Resection of Sigmoid Colon, Open Approach (ICD-10-PCS; principal; 2022-09-01 10:15)
DX: K57.20 Diverticulitis of large intestine with perforation and abscess without bleeding (principal); K65.0 Generalized (acute) peritonitis; E87.1 Hypo-osmolality and hyponatremia; G89.18 Other acute postprocedural pain
CPT/HCPCS: 00840; 36415; 51701; 64488; 74019; 74177; 76942; 80048; 80076; 81003; 81015; 83690; 83735; 85025; 86140; 86850; 86900; 86901; 87086; 88304; 88307; 99140; 99284; A9270; C9290; J0330; J1100; J1170; J1335; J1650; J1885; J2405; J3010; J3475; J3480; J3490; J7030; J7120; Q9967

== ENCOUNTER 2022-10-27 10:26 | Outpatient (CLI) | payer OTHER, SELFPAY ==
--- NOTE | 2022-10-27 11:15 | CRLHL7_ITS ---
For Patients: As a result of the Century Cures Act, medical imaging exams and procedure reports are released immediately into your electronic medical record. You may view this report before your referring provider. If you have questions, please contact your health care provider. Indication: pain following sigmoidectomy 09/01/22, post op complications Technique: Postcontrast CT abdomen and pelvis. 95 cc Isovue 370 intravenous contrast. Please note that all CT scans at this facility use dose modulation, iterative reconstruction, and/or weight-based dosing when appropriate to reduce radiation dose to as low as reasonably achievable. Comparison: 09/01/2022 Findings: Mild dependent areas of atelectasis are present within both lung bases. No pleural effusion. No free intraperitoneal air. Gallbladder incompletely distended. No calcified gallstones or biliary obstruction. Pancreas normal. Normal spleen. Adrenal glands normal. Incidental extrarenal pelvis regarding both kidneys. No hydronephrosis. Extensive clot is present throughout the portal venous system with extension into the liver branches. Complete or near complete obstruction of the superior mesenteric vein is present. The splenic vein is patent. Several sub centimeter mesenteric and retroperitoneal lymph nodes are noted. Postop changes of sigmoidectomy with diverting right lower quadrant ostomy. Bladder normal. Prostate calcifications. No abscess. Atherosclerotic disease. Degenerative disc disease L5-S1. No vertebral body compression fracture. Impression: Extensive clot formation within the superior mesenteric vein with extension into the portal vein and intrahepatic portal venous branches. Postop changes of sigmoidectomy and right lower quadrant diverting ostomy. No bowel obstruction. Mild residual inflammatory changes are present within the left lower quadrant along with mildly prominent reactive mesenteric and retroperitoneal lymph nodes. Please note that all CT scans at this facility use dose modulation, iterative reconstruction, and/or weight-based dosing when appropriate to reduce radiation dose to as low as reasonably achievable. Dictated by Jose Elias Tavarez MD @ 10/27/2022 2:15:24 PM (Electronically Signed)
== END 2022-10-27 10:27 | disposition home or self-care (01) ==
LOC: CT 10:31
PROVIDERS: Visit Provider Surgery
DX: R10.9 Unspecified abdominal pain (principal); Z90.49 Acquired absence of other specified parts of digestive tract; Z98.890 Other specified postprocedural states
CPT/HCPCS: 74177; 80048; 80076; 83690; Q9967

== ENCOUNTER 2023-01-17 09:59 | Outpatient (CLI) | payer OTHER, SELFPAY ==
--- NOTE | 2023-01-17 10:15 | CRLHL7_ITS ---
For Patients: As a result of the Cures Act, medical imaging exams and procedure reports are released immediately into your electronic medical record. You may view this report before your referring provider. If you have questions, please contact your health care provider. Technique: Single contrast enema exam performed with water-soluble contrast. Fluoroscopy time 43 seconds. Indication: Status post sigmoidectomy with primary anastomosis and diverting right lower quadrant ileostomy. Evaluate anastomosis for takedown. Comparison: CT 10/27/2022 Findings: Postoperative changes noted. No extravasation of contrast. No evidence of obstruction. Diverticulosis present throughout the remaining colon. No acute inflammation. Impression: Intact anastomosis. Clear for takedown procedure. Dictated by Jose Elias Tavarez MD @ 01/17/2023 12:30:37 PM (Electronically Signed)
== END 2023-01-17 10:00 | disposition home or self-care (01) ==
PROVIDERS: Visit Provider Surgery
DX: Z90.49 Acquired absence of other specified parts of digestive tract (principal); Z98.890 Other specified postprocedural states
CPT/HCPCS: 74270

== ENCOUNTER 2023-01-19 09:21 | Outpatient (CLI) | payer OTHER, SELFPAY ==
--- NOTE | 2023-01-19 10:29 | W.ANESCHARGE ---
Anesthesia Charges Start Date/Time Anesthesia Start Date: 01/19/23 Anesthesia Start Time: 10:04 Stop Date/Time Anesthesia Stop Date: 01/19/23 Anesthesia Stop Time: 10:25
--- NOTE | 2023-01-19 12:23 | W.ANESCHARGE ---
Anesthesia Charges Start Date/Time Anesthesia Start Date: 01/19/23 Anesthesia Start Time: 10:04 Stop Date/Time Anesthesia Stop Date: 01/19/23 Anesthesia Stop Time: 10:25
== END 2023-01-19 09:22 | disposition home or self-care (01) ==
LOC: OP CLINIC 09:22
PROVIDERS: Visit Provider Internal Medicine
DX: R93.3 Abnormal findings on diagnostic imaging of other parts of digestive tract (principal); K62.89 Other specified diseases of anus and rectum; K62.5 Hemorrhage of anus and rectum; K63.5 Polyp of colon; K57.30 Diverticulosis of large intestine without perforation or abscess without bleeding
CPT/HCPCS: 00811; 00812; 45380; 88305; J2704

== ENCOUNTER 2023-01-30 20:36 | Inpatient (IN) | payer OTHER, SELFPAY ==
[2023-01-29] VITALS (23 sets, daily range): BP systolic 112–137; BP diastolic 52–81; PULSE 47–79; RESP 12–18; TEMP 36.4–37.1; O2SAT 92–98; BMI 30.4
[2023-01-29] MEDS: LACTATED RINGERS 1000 ML 1,000 ML 100 ML IV ×2 (10:57→12:57)
[2023-01-29] MEDS: SODIUM CHLORIDE 0.9 % (FLUSH) 10 ML SYRINGE IVF (10:57)
[2023-01-29] MEDS: ERTAPENEM 1 GM inj IVPB (12:55)
--- NOTE | 2023-01-29 13:46 | W.ANESCHARGE ---
Anesthesia Charges Start Date/Time Anesthesia Start Date: 01/29/23 Anesthesia Start Time: 12:48 Stop Date/Time Anesthesia Stop Date: 01/29/23 Anesthesia Stop Time: 15:05
[2023-01-29] MEDS: BUPIVACAINE 0.25% 30 ML INJECTION (14:40)
--- NOTE | 2023-01-29 14:53 | P.GSOP_ITS ---
Operative Note Pre-op diagnosis: Ileostomy status Post-op diagnosis: Same Type of Procedure: Open ileostomy takedown Indications: The patient is a 52-year-old male who presented with peritonitis and perforated diverticulitis. This was several months ago. He was taken to the operating room for emergent sigmoidectomy and diverting loop ileostomy. He recovered without incident. After Gastrografin enema showed no anastomotic leak or stricture and colonoscopy revealed no additional findings, he was deemed ready for stoma takedown. Procedure Description: After discussing the risks and benefits of the procedure, the patient signed informed consent.? The operative site was marked and the patient was brought to the operating room and placed on the operating table in supine position.? Care was taken to pad the patient's pressure points.?? The patient was then intubated by anesthesia.??The stoma bag was removed. The proximal and distal limbs of the small bowel were oversewn with silk suture to prevent stool spillage during the operation. The operative site was then prepped and draped in the usual sterile fashion.? A time-out was then performed. I began by incising the mucocutaneous junction surrounding the stoma. Once this was completely excised I took dissection down in the subcutaneous fat until I was able to encounter the plane between the small bowel and the subcutaneous fat. There were adhesions noted laterally which were carefully taken down with a combination of sharp dissection with scissors as well as cautery. Once I was able to completely free the stoma and proximal and distal small bowel from the fascia, I was able to pull this into view. There was an omental adhesion proximally which was lysed which then allowed adequate small bowel to be pulled into view to facilitate the anastomosis. I chose a healthy area of small bowel distally and created a mesenteric window. Through this I passed a blue load DIVYA stapler and divided the small bowel distally. Similarly identified a healthy portion of ileum proximal to the anastomosis. A mesenteric window was created and the small bowel was divided using a blue load DIVYA stapler. The mesentery was then ligated and divided with clamps and ties. The specimen was sent to pathology. Small bleeding on the mesentery were controlled with stick ties. A small area of bleeding on the staple line at the mesenteric edge was oversewn with 0 silk. Once this was done the edges of the small bowel were brought together. A stay stitch was placed and enterotomies were created near the staple line on each end of bowel. Through this a blue load DIVYA stapler was advanced and a 60 mm anastomosis was created. The staple line was examined and there was no bleed ing. I then closed the common enterotomy with interrupted 3-0 silk suture in a Lembert fashion. The anastomosis was examined and appeared to be widely patent. A crotch stitch was then placed with 3-0 silk. The the mesenteric window was carefully closed with a remaining 3-0 silk suture. The mesentery was examined and there was no bleeding noted. The anastomosis was then carefully placed back in the abdomen. The fascia was then closed with 1. PDS in a running fashion. Once this was closed the subcutaneous space was irrigated. I then used 0 Vicryl suture to loosely close the subcutaneous space over the suture line, leaving the bulk of the wound open. Once this was done, 4-0 Monocryl was used to cinch the skin edges in a pursestring. Local anesthetic was injected into the subcutaneous tissue around the wound. Gauze packing was then placed in the wound and the wound was covered with sterile dressing ? The patient was then woken and transported to the recovery area in stable cond ition. ? The patient tolerated the procedure well. Anesthesia: GETA Surgeon: Linda Paige MD Estimated blood loss (mL): 50 Additional Specimen Information: Ileostomy Condition: stable Disposition: PACU Date of procedure: 01/29/23
--- NOTE | 2023-01-29 15:04 | W.ANESCHARGE ---
Anesthesia Charges Start Date/Time Anesthesia Start Date: 01/29/23 Anesthesia Start Time: 12:48 Stop Date/Time Anesthesia Stop Date: 01/29/23 Anesthesia Stop Time: 15:05
[2023-01-29] MEDS: HYDROmorphone 0.5 mg/0.5 ml inj IVP ×3 (15:05→18:32)
[2023-01-29] MEDS: fentaNYL 100 MCG/2 ML inj 50 MCG IVP ×2 (15:20→15:31)
[2023-01-29] MEDS: HYDROCODONE-ACETAMIN 5-325 MG 1 TAB PO ×2 (16:43→20:29)
[2023-01-29] MEDS: LACTATED RINGERS 1000 ML 1,000 ML 125 ML IV (16:44)
[2023-01-30] VITALS (9 sets, daily range): BP systolic 115–157; BP diastolic 66–92; PULSE 56–69; RESP 16; TEMP 36.5–36.9; O2SAT 95–98
[2023-01-30] MEDS: ACETAMINOPHEN 325 MG TABLET 650 MG PO (00:09)
[2023-01-30] MEDS: HYDROmorphone 0.5 mg/0.5 ml inj IVP (00:09)
[2023-01-30] MEDS: LACTATED RINGERS 1000 ML 1,000 ML 125 ML IV (01:46)
[2023-01-30] MEDS: HYDROCODONE-ACETAMIN 5-325 MG 1 TAB PO ×5 (03:55→21:27)
--- NOTE | 2023-01-30 06:20 | PC.NURSE ---
Pt rested well this night. Up IND and voiding. No BM. Ab wound filled with Krilex Fluff and covered with Mepolex. CDI. No N/V. Pain controlled. Tolerating clears. VS unremarkable
[2023-01-30 06:49] LABS: Basophils Percent Auto 0.1 % (0.0-3.0); Hematocrit 43.1 % (37.0-53.0); Hemoglobin* 14.7 gm/dL (13.5-17.5); Immature Granulocytes Pct Auto 0.1 %; Mean Corpuscular HGB Conc 34 gm/dL (32-36); Mean Corpuscular Hemoglobin 30 pg (26-34); Mean Corpuscular Volume 88 fL (80-100); Monocytes Percent Auto 6.9 % (0.0-11.0); Neutrophils Percent Auto 83.9 % (42.0-72.0); Platelet Count* 357 K/uL (140-440); RDW Coefficient of Variation % 12.6 % (11.5-15.5); Red Blood Count 4.92 m/uL (4.30-5.90); White Blood Count* 13.98 K/uL (4.50-11.00)
[2023-01-30 06:54] LABS: Slide Review Reflex No
[2023-01-30] MEDS: KETOROLAC 15 MG/ML inj IVP ×3 (08:00→21:26)
--- NOTE | 2023-01-30 09:00 | PM.GSPN ---
Subjective Subjective Date Seen: 01/30/23 Interval history: Jarad is having more pain than he expected. This is mainly around the incision, but today he does feel a little bit more like he has an upset stomach. No nausea. He has a headache this morning. He has been up walking. Exam Narrative: Exam Narrative: General: No acute distress Respiratory: Clear to auscultation bilaterally CV: Regular rate and rhythm Abdomen: Nondistended. Stoma site dressing change. Wound appears clean. Const: Vital Signs, click to edit/add: Vital Signs - 24 hr 01/29/23 10:46 01/29/23 14:59 01/29/23 15:05 Temperature 98.6 F 98.8 F Pulse Rate 53 L 63 64 Pulse Rate [Right Pulse Oximeter] Respiratory Rate 16 12 14 Blood Pressure 119/81 122/73 134/71 Blood Pressure [Le ft Arm] Blood Pressure [Le ft Calf] Pulse Oximetry 97 96 95 Oxygen Delivery Me thod Room Air Nasal Cannula Oxygen Flow Rate 3 01/29/23 15:10 01/29/23 15:15 01/29/23 15:20 Temperature Pulse Rate 57 L 57 L 64 Pulse Rate [Right Pulse Oximeter] Respiratory Rate 16 14 16 Blood Pressure 133/77 124/69 137/65 Blood Pressure [Le ft Arm] Blood Pressure [Le ft Calf] Pulse Oximetry 96 92 94 Oxygen Delivery Me thod Oxygen Flow Rate 2 01/29/23 15:25 01/29/23 15:30 01/29/23 15:35 Temperature Pulse Rate 64 64 65 Pulse Rate [Right Pulse Oximeter] Respiratory Rate 14 16 14 Blood Pressure 135/76 136/71 136/56 L Blood Pressure [Le ft Arm] Blood Pressure [Le ft Calf] Pulse Oximetry 93 96 95 Oxygen Delivery Me thod Oxygen Flow Rate 01/29/23 15:40 01/29/23 15:45 01/29/23 15:50 Temperature 98.2 F Pulse Rate 61 66 58 L Pulse Rate [Right Pulse Oximeter] Respiratory Rate 16 14 14 Blood Pressure 128/74 122/52 L 125/71 Blood Pressure [Le ft Arm] Blood Pressure [Le ft Calf] Pulse Oximetry 93 95 95 Oxygen Delivery Me thod Oxygen Flow Rate 01/29/23 15:53 01/29/23 15:58 01/29/23 16:15 Temperature 98.2 F 98.6 F Pulse Rate 58 L Pulse Rate [Right Pulse Oximeter] 68 Respiratory Rate 18 18 Blood Pressure Blood Pressure [Le ft Arm] 124/70 Blood Pressure [Le ft Calf] 126/74 Pulse Oximetry 94 Oxygen Delivery Me thod Room Air Room Air Room Air Oxygen Flow Rate 01/29/23 16:30 01/29/23 16:45 01/29/23 17:00 Temperature 98.6 F 97.8 F Pulse Rate Pulse Rate [Right Pulse Oximeter] 48 L 47 L Respiratory Rate 16 16 Blood Pressure Blood Pressure [Le ft Arm] 119/79 116/69 112/80 Blood Pressure [Le ft Calf] Pulse Oximetry 98 94 Oxygen Delivery Me thod Room Air Room Air Oxygen Flow Rate 01/29/23 17:30 01/29/23 18:00 01/29/23 19:00 Temperature 97.8 F 98.1 F 98.4 F Pulse Rate Pulse Rate [Right Pulse Oximeter] 47 L 53 L 66 Respiratory Rate 16 16 16 Blood Pressure Blood Pressure [Le ft Arm] 125/78 126/77 124/77 Blood Pressure [Le ft Calf] Pulse Oximetry 94 95 98 Oxygen Delivery Me thod Room Air Room Air Room Air Oxygen Flow Rate 0 01/29/23 20:29 01/29/23 20:34 01/29/23 22:15 Temperature 98.4 F 97.6 F 97.8 F Pulse Rate Pulse Rate [Right Pulse Oximeter] 77 79 Respiratory Rate 16 16 Blood Pressure Blood Pressure [Le ft Arm] 130/72 127/79 Blood Pressure [Le ft Calf] Pulse Oximetry 97 97 Oxygen Delivery Me thod Room Air Room Air Oxygen Flow Rate 0 0 01/30/23 00:09 01/30/23 02:16 01/30/23 03:55 Temperature 97.8 F 97.9 F 97.9 F Pulse Rate Pulse Rate [Right Pulse Oximeter] Respiratory Rate 16 Blood Pressure Blood Pressure [Le ft Arm] 122/73 Blood Pressure [Le ft Calf] Pulse Oximetry 97 Oxygen Delivery Me thod Room Air Oxygen Flow Rate 0 01/30/23 06:16 01/30/23 07:00 01/30/23 07:00 Temperature 97.9 F 97.9 F Pulse Rate Pulse Rate [Right Pulse Oximeter] 62 Respiratory Rate 16 16 Blood Pressure Blood Pressure [Le ft Arm] 157/92 H Blood Pressure [Le ft Calf] Pulse Oximetry 98 Oxygen Delivery Me thod Room Air Oxygen Flow Rate 0 Labs/Imaging Labs Labs: Hemoglobin is 14.7. 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 -Will try to get his pain under better control with Toradol given that his hemoglobin is stable. -will hold off on Eliquis at least 1 day since he is likely not absorbing and because of bleeding risk -will start Lovenox today and switch to Eliquis if he is feeling better tomorrow. -continue clear liquids. Encouraged him not to take in too much if he is having abdominal pain or distension. -will decrease maintenance fluids slightly -encourage IS and ambulation
[2023-01-30] MEDS: LACTATED RINGERS 1000 ML 1,000 ML 75 ML IV ×2 (11:15→23:26)
--- NOTE | 2023-01-30 19:31 | PC.NURSE ---
Alert and oriented, PRN pain meds administered with relief. tolerating clear liquid. Up ad jose elias in hallway and to BR. Patient, voiding well. bowel sounds active. not passing gas yet.
[2023-01-30] MEDS: ENOXAPARIN 40 MG/0.4 ML INJ SUBCUT (21:25)
[2023-01-31 03:30] VITALS: BP 119/69; PULSE 56; RESP 18; TEMP 36.4; O2SAT 96
[2023-01-31] MEDS: KETOROLAC 15 MG/ML inj IVP ×4 (03:33→21:23)
[2023-01-31] MEDS: HYDROCODONE-ACETAMIN 5-325 MG 1 TAB PO ×4 (03:33→21:23)
--- NOTE | 2023-01-31 06:47 | PC.NURSE ---
Shift note [id number]: Pt alert & oriented x 4 and able to make needs known. He is independent and continent of bladder using toilet in bathroom for urination. Pt up in paz independently. Pt has not yet had a BM though bowel sounds are noted to be active x 4. Pt not yet passing gas per pt. Dressing to R abdomen noted to be C/D/I upon inspection. Pt continues LR at 75 mL/hr. He requests PRN Toradol and [place] be given Q6H around the clock and to be woken up if he is sleeping during times he can have these medications. Ice pack also used for pain control to abdomen. ?
[2023-01-31] MEDS: LACTATED RINGERS 1000 ML 1,000 ML 75 ML IV (12:37)
--- NOTE | 2023-01-31 13:03 | P.GSPN_ITS ---
Subjective Subjective Date Seen: 01/31/23 Interval history: Jarad passed a small amount of gas today - feels rumbling. Is having more incisional pain today. Has been up ambulating. No nausea. Continues with a headache but this is helped with coffee. Exam Narrative: Exam Narrative: General: No acute distress CV: Regular rate and risk Respiratory: Clear to auscultation bilaterally Abdomen: Right abdominal wound is healing well. No exudate. No periwound erythema. Abdomen is nondistended. Const: Vital Signs, click to edit/add: Vital Signs - 24 hr 01/30/23 15:00 01/30/23 15:00 01/30/23 19:00 Temperature 97.7 F 98.5 F Pulse Rate [Right Pulse Oximeter] 69 69 61 Respiratory Rate 16 16 16 Blood Pressure [Le ft Arm] 119/66 115/74 Pulse Oximetry 97 95 Oxygen Delivery Me thod Room Air Room Air Oxygen Flow Rate 0 0 01/30/23 23:00 01/31/23 03:30 Temperature 98.5 F 97.6 F Pulse Rate [Right Pulse Oximeter] 56 L 56 L Respiratory Rate 16 18 Blood Pressure [Le ft Arm] 117/82 119/69 Pulse Oximetry 97 96 Oxygen Delivery Me thod Room Air Room Air Oxygen Flow Rate 0 Progress Note: A&P Assessment and plan (1) S/P closure of ileostomy: Status: Acute (2) Superior mesenteric vein thrombosis: Status: Acute Plan The patient is a 52-year-old male who is postop day 2 status post ileostomy takedown. Will continue with dressing changes to stoma site. I will advance his diet to full liquids today as he has passed a small amount of gas in his a bdomen is nondistended. Saline lock iv fluids Will restart Eliquis today and discontinue Lovenox Continue ambulation and IS. Anticipate 1-2 more days inpatient
[2023-01-31 15:42] VITALS: BP 143/81; PULSE 55; RESP 18; TEMP 36.7; O2SAT 96
--- NOTE | 2023-01-31 16:18 | PC.NURSE ---
Pt rating his pain 5-6 out of 10. UAL in room and hallway. BS remain hypoactive however pt did state he is passing small amt of gas at initial assessment. Advanced from CL bkfst to Full Liquid lunch w/o increased abdominal discomfort. Eval by Dr. Paige. IVF to SL. Pt showered independently in paz/room and is working on his computer throughout the day shift. supportive at bedside. Please see eMar for medications provided on day shift. Drsg changed and covered by Marylou Garcia RN this afternoon after pt took a shower. Report to oncoming shift.
[2023-01-31] MEDS: ACETAMINOPHEN 325 MG TABLET 650 MG PO (17:50)
[2023-01-31 19:16] VITALS: BP 128/74; PULSE 56; RESP 16; TEMP 36.9; O2SAT 96
[2023-01-31] MEDS: APIXABAN 5 MG TABLET PO (21:23)
[2023-01-31 23:00] VITALS: RESP 16; TEMP 36.7
[2023-02-01] MEDS: KETOROLAC 15 MG/ML inj IVP ×4 (03:35→21:47)
[2023-02-01] MEDS: HYDROCODONE-ACETAMIN 5-325 MG 1 TAB PO ×4 (03:36→21:47)
[2023-02-01 03:44] VITALS: BP 111/64; PULSE 62; RESP 16; TEMP 36.7; O2SAT 95
--- NOTE | 2023-02-01 05:31 | PC.NURSE ---
[id number]: Patient pleasant and cooperative. BS active and passing fair amount of gas per patient. Pain controlled with PRN medications and active ice. Patient motivated and ambulated in paz several times. Dressing to R. abdomen C/D/I. Tolerating fulls. Denies N/V. Afebrile.
[2023-02-01 08:15] VITALS: BP 121/83; PULSE 68; RESP 16; TEMP 36.6; O2SAT 98
[2023-02-01] MEDS: APIXABAN 5 MG TABLET PO ×2 (09:36→21:47)
--- NOTE | 2023-02-01 10:50 | PM.GSPN ---
Subjective Subjective Date Seen: 02/01/23 Interval history: Jarad is doing well. He is passing copious gas. His pain is better. Denies nausea. Has been tolerating full liquids. Has been up ambulating. Exam Narrative: Exam Narrative: General: No acute distress CV: Regular rate and rhythm Respiratory: Clear to auscultation bilaterally Abdomen: Appropriately tender for the postop state. Nondistended. Incision without erythema. Healthy subcutaneous fat noted in the base. Const: Vital Signs, click to edit/add: Vital Signs - 24 hr 01/31/23 15:42 01/31/23 19:16 01/31/23 23:00 Temperature 98.1 F 98.4 F 98.1 F Pulse Rate [Right Pulse Oximeter] 55 L 56 L Respiratory Rate 18 16 16 Blood Pressure [Le ft Arm] 143/81 H 128/74 Pulse Oximetry 96 96 Oxygen Delivery Me thod Room Air Room Air 02/01/23 03:44 Temperature 98.1 F Pulse Rate [Right Pulse Oximeter] 62 Respiratory Rate 16 Blood Pressure [Le ft Arm] 111/64 Pulse Oximetry 95 Oxygen Delivery Me thod Room Air Progress Note: A&P Assessment and plan (1) S/P closure of ileostomy: Status: Acute (2) Superior mesenteric vein thrombosis: Status: Acute Plan Jarad is doing well today. He is still waiting for full return of bowel function. I expect they will happen in the next 1-2 days. Once he has a bowel movement he may discharge home. -instructed patient on dressing changes. He is going to perform these daily. -he can have a soft diet today. -continue Eliquis. -continue IS and ambulation -he will follow up with me in 2 weeks.
[2023-02-01 11:25] VITALS: BP 124/67; PULSE 69; RESP 16; TEMP 37.2; O2SAT 97
--- NOTE | 2023-02-01 12:37 | NUTR.NU ---
JERRYN with diet education related to ileostomy takedown 01/30/2023. Patient with a history of perforated diverticulitis and peritonitis, with exploratory laparotomy in sigmoidectomy with diverting loop ileostomy on 09/03/2022. He was seen in outpatient clinic for medical nutrition therapy on 09/13/2022. Patient is currently on Regular diet, GI surgeon recommending patient follow a surgical soft diet at this time. RDN visited with patient whom reports feeling well. He is passing gas and waiting to have a bowel movement to be able to discharge. RDN offered diet education related to ileostomy takedown and surgical soft diet. Patient agreed to education. Education provided on following a low fiber/surgical soft diet for the next ~2 weeks or per MD recommendations.?Education included recommendations on following a low-fiber diet of less than 13 grams of fiber per day and included foods that are recommended and not recommended. Discussed avoiding tough meats as well at this time. Education also provided on gradually increasing fiber and following a high fiber diet (25-35 grams/day) long-term.? Verbal and written information as well as sample menus provided from [facility]. Patient verbalized understanding adn reported he has educational materials from past visits related to low fiber and high fiber diet as well.? RDN's contact information was provided and patient was encouraged to contact RDN with questions.
[2023-02-01 15:00] VITALS: PULSE 68; PULSE 69; RESP 16
--- NOTE | 2023-02-01 15:47 | PC.NURSE ---
Pt UAL in room and hallway. Eval by Dr. Paige who completed pt's dressing change around 10 am. Full liquid bkfst w/o increased c/o bloating or pain. Regular soft diet for lunch, pt is to avoid spicy and acidic menu choices. Pt passing flatus. BS hyperactive. Tentative d/c orders in place if pt is able to have a bowel movement post operatively. He is to allow nursing to view any stool production. Pain in abdomen 4-5 out of 10. Please see eMar for meds provided on day shift. Report to Rema Deutsch RN for evening shift.
[2023-02-01 19:00] VITALS: BP 127/84; PULSE 94; RESP 16; TEMP 36.9; O2SAT 95
[2023-02-01 23:00] VITALS: BP 122/96; PULSE 90; RESP 16; TEMP 37.2; O2SAT 97
[2023-02-02] MEDS: KETOROLAC 15 MG/ML inj IVP (03:51)
[2023-02-02] MEDS: HYDROCODONE-ACETAMIN 5-325 MG 1 TAB PO ×2 (03:51→09:15)
[2023-02-02 03:57] VITALS: BP 134/80; PULSE 56; RESP 18; TEMP 36.7; O2SAT 97
--- NOTE | 2023-02-02 06:12 | PC.NURSE ---
SHIFT NOTE -: Pt pleasant and cooperative. Pt was enthused that he had a large bowel movement overnight and is happy to d/c home. Up independent. PRN Lostant and Toradol given for pain with pt reporting adequate relief. Denies CP, SOB, and N/V.
[2023-02-02 07:30] VITALS: BP 123/73; PULSE 68; RESP 16; TEMP 36.3; O2SAT 96
[2023-02-02] MEDS: APIXABAN 5 MG TABLET PO (09:15)
--- NOTE | 2023-02-02 09:46 | PC.NURSE ---
Pt alert and oriented. Pt had complaints of pain ranging from 0-8. Pt up walking in hallways. Pt showered. Dressing changed. Pt discharged home with friend.
--- NOTE | 2023-02-02 10:31 | P.DS_ITS ---
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 Postoperatively he did well. On the day of discharge she was tolerating a diet, had good pain control on oral medications and had return of bowel function. Time Spent with Patient Time attestation: Total time spent providing and/or coordinating discharge services: Exam Narrative: Exam Narrative: General: No acute distress CV: Regular rate Respiratory: Breathing nonlabored on room air Abdomen: Soft, nondistended. Const: Vital Signs, click to edit/add: Vital Signs - 24 hr 02/01/23 11:25 02/01/23 15:00 02/01/23 19:00 Temperature 98.9 F 98.5 F Pulse Rate [Left A pical] 68 94 Pulse Rate [Right Pulse Oximeter] 69 69 Respiratory Rate 16 16 16 Blood Pressure [Le ft Arm] 124/67 127/84 Pulse Oximetry 97 95 Oxygen Delivery Me thod Room Air Room Air Oxygen Flow Rate 0 02/01/23 23:00 02/01/23 23:00 02/02/23 03:57 Temperature 99.0 F 98.0 F Pulse Rate [Left A pical] 90 56 L Pulse Rate [Right Pulse Oximeter] Respiratory Rate 16 16 18 Blood Pressure [Le ft Arm] 122/96 H 134/80 Pulse Oximetry 97 97 Oxygen Delivery Me thod Room Air Room Air Oxygen Flow Rate 0 0 02/02/23 07:30 Temperature 97.4 F L Pulse Rate [Left A pical] Pulse Rate [Right Pulse Oximeter] 68 Respiratory Rate 16 Blood Pressure [Le ft Arm] 123/73 Pulse Oximetry 96 Oxygen Delivery Me thod Room Air Oxygen Flow Rate DS: Data Data Completed and Pending Completed studies during hospitalization: Procedures Bypass Ileum to Cutaneous, Open Approach (09/01/22) Resection of Sigmoid Colon, Open Approach (09/01/22) Discharge Plan Discharge Disposition: Home, Self-Care Date of Admission: 01/30/23 20:36 Attending Provider on Discharge: Linda Paige Primary Care Provider: Provider,Not a Local Condition: Stable Anticipated Discharge Date/Time: 02/02/23 07:00 Discharge Medications: New hydrocodone-acetaminophen 5-325 mg Tablet 1 - 2 tab PO Q6H PRN (Reason: Pain) Qty: 25 0RF ketorolac 10 mg tablet 10 mg PO TID PRN (Reason: pain) 2 Days Qty: 7 0RF Continued finasteride 1 mg tablet 1 mg PO DAILY Eliquis 5 mg tablet 5 mg PO BID Qty: 60 2RF Discharge Orders: Discharge Order (Routine); Ordered 02/02/23 Ordered By: Linda Paige Patient Education: Hydrocodone/Acetaminophen (By mouth), Ketorolac (By mouth) (Toradol), Ileostomy Reversal (DC) Additional Instructions: Pain control: You were prescribed a pain medication. This medication contains acetaminophen (Tylenol). If you are taking your prescribed pain pills 4 times daily, do not take additional acetaminophen. As your pain improves, you can try taking acetaminophen instead of the prescribed pain pill. Do not take additional ibuprofen or naproxen while you are taking the prescribed Ketorolac. Take an ggsk-efx-timdilo stool softener while you are taking prescribed pain medications to help alleviate constipation. I recommend Senna and/or Colace. Take as directed on package. If you have not had a bowel movement in 3 days, try taking Miralax as directed on the package. All of these are available over the counter. Follow-up Follow up with Dr. Paige in 2-3 weeks Please call if you are experiencing severe pain, nausea, vomiting, difficulty urinating, fever or have not had bowel movement in 4 days after surgery. Activity Level: No strenuous activity Activity Detail: No lifting more than 20 lb for 4 weeks. Discharge Diet: Regular Follow Up Appointments: Linda Paige MD [Staff Physician] - 02/14/23 10:30 am (Previous appointment was cancelled for closer location. [facility] ) Provider,Not a Local [Primary Care Provider] - Forms: Ahandyhand Info Instructions
== END 2023-02-02 09:30 | disposition home or self-care (01) | DRG 329 ==
LOC: OR 02-07 16:09
PROVIDERS: Admitting Provider Family Medicine; Visit Provider Surgery
PROC: 0DBE0ZZ Excision of Large Intestine, Open Approach (ICD-10-PCS; CPT 44620; principal; 2023-01-29 11:30)
DX: Z43.2 Encounter for attention to ileostomy (principal); K55.059 Acute (reversible) ischemia of intestine, part and extent unspecified; R51.9 Headache, unspecified
CPT/HCPCS: 00790; 36415; 85025; 88304; A9270; J0330; J0665; J1100; J1170; J1335; J1650; J1885; J2250; J2405; J2704; J3010; J3490; J7120

== ENCOUNTER 2023-04-10 10:32 | Outpatient (CLI) | payer OTHER, SELFPAY ==
--- OUTSIDE RECORDS SUMMARY | 2023-04-10 10:48 | XMS_ITS | Encounter Summary ---
Author Name Unknown Organization [facility] Address [address] [place] [address]. [place] [address] Care Team Providers Care Tipple Supervisor Name Role Phone Golden Garcia MD Primary Care Provider [phone] Golden Garcia MD Unavailable [phone] Encounter Details Date Type Department Care Team (Late st Contact Info) Description 10/10/2022 Medical Correspondence [facility] [address] [place] [id number] Outside, Provider Social History Tobacco Use Types Packs/Day Years Used Date Smoking Tobacco: Never Smokeless Tobacco: Former Alcohol Use Standard Drinks/Week Comments No 0 (1 standard drink = 0.6 oz pur e alcohol) Sober since 2006 PHQ-2 Answer Date Recorded PHQ-2 Score 2 10/05/2020 Sex and Gender Information Value Date Recorded Sex Assigned at Male 10/04/2020 1:15 PM CDT Gender Identity Male 10/04/2020 1:15 PM CDT Sexual Orientation Straight 10/04/2020 1: 15 PM CDT COVID-19 Exposure Response Date Recorded In the last 10 days, have yo u been in contact with someone who was confirmed or suspected to have Coronavirus/COVID-19? No / Unsure 09/26/2022 10:09 AM CDT documented as of this encounter Plan of Treatment Not on file documented as of this encounter Visit Diagnoses Not on filedocumented in this encounter Additional Health Concerns Assessment Noted Time PHQ-9 Depression Total Score: 8 10/06/19 21 10:49 AM CDT documented as of this encounter Care Teams Tipple Supervisor Relationship Specialty Start Date End Date Golden Garcia MD [address] [place] [id number] PCP - General Internal Medicine 04/18/16 Golden Garcia MD [address] [place] [id number] Assigned PCP 03/23/16 documented as of this encounter
--- OUTSIDE RECORDS SUMMARY | 2023-04-10 10:48 | XMS_ITS | Encounter Summary ---
Author Name Unknown Organization [facility] Address [address] [place] [address] Care Team Providers Care Electric Crane Operator Name Role Phone Godlen Garcia MD Primary Care Provider [phone] Golden Garcia MD Unavailable [phone] Encounter Details Date Type Department Care Team (Late st Contact Info) Description 04/09/2023 Orders Only [facility] [address] [place] [address] Ashley Adams, ONCOLOGY NAVIGATOR RETIREMENT SPECIALIST [address] [place] [address] Social History Tobacco Use Types Packs/Day Years Used Date Smoking Tobacco: Never Smokeless Tobacco: Former Quit: 02/16/2013 Alcohol Use Standard Drinks/Week Comments No 0 (1 standard drink = 0.6 oz pur e alcohol) Sober since 2006 PHQ-2 Answer Date Recorded PHQ-2 Score 0 04/05/2023 Adolescent Education Answer Date Record ed Getting School Help Needed Not on file 01/01 Food Insecurity Answer Date Recorded Within the past 12 months, d id you worry that your food would run out before you got money to buy more? No 01/22/2023 Within the past 12 months, d id the food you bought just not last and you didn? t have money to get more? No 01/22/2023 Housing Stability Answer Date Recorded Do you have housing? Yes 01/22/2023 Are you worried about losing your housing? No 01/22/2023 Financial Resource Strain Answer Date R ecorded Within the past 12 months, h ave you or your family members you live with been unable to get utilities (heat, electricity) when it was really needed? No 01/22/2023 Transportation Needs Answer Date Record ed Within the past 12 months, h as lack of transportation kept you from medical appointments, getting your medicines, non-medical meetings or appointments, work, or from getting things that you need? No 01/22/2023 Sex and Gender Information Value Date Recorded Sex Assigned at Male 10/04/2020 1:15 PM CDT Gender Identity Male 10/04/2020 1:15 PM CDT Sexual Orientation Straight 10/04/2020 1: 15 PM CDT documented as of this encounter Plan of Treatment Not on file documented as of this encounter Visit Diagnoses Not on filedocumented in this encounter Additional Health Concerns Assessment Noted Time PHQ-9 Depression Total Score: 8 10/06/19 21 10:49 AM CDT documented as of this encounter Care Teams Electric Crane Operator Relationship Specialty Start Date End Date Golden Garcia MD [address] [place] [address] PCP - General Internal Medicine 04/18/16 Golden Garcia MD [address] [place] [id number] Assigned PCP 03/23/16 documented as of this encounter
--- OUTSIDE RECORDS SUMMARY | 2023-04-10 10:48 | XMS_ITS | Encounter Summary ---
Author Name Unknown Organization [place] Address [address] [place] [address] Care Team Providers Care Holistic Pulser Name Role Phone Ivonne Nguyen MD Primary Care Provider Ivonne Nguyen MD Unavailable [phone] Reason for Visit * Reason Comments Pre-Op Exam Recheck Medication Discuss anti-anxiety Encounter Details Date Type Department Care Team (Late st Contact Info) Description 01/23/2023 8:30 AM SKATING CARHOP Office Visit [facility] [address] [place] [address], [address] [place] [address] Ivonne Nguyen MD [address] [facility] [address] [place] [address] Preop general physical exam (Primary Dx); Diverticular disease of colon; Mesenteric vein thrombosis (H24); Alopecia; Depression with anxiety; Prostate cancer screening; Lipid screening Social History Tobacco Use Types Packs/Day Years Used Date Smoking Tobacco: Never Smokeless Tobacco: Former Quit: 02/16/2013 Tobacco Cessation:Counseling Given: Not Answered Alcohol Use Standard Drinks/Week Comments No 0 (1 standard drink = 0.6 oz pur e alcohol) Sober since 2006 PHQ-2 Answer Date Recorded PHQ-2 Score 0 01/23/2023 Adolescent Education Answer Date Record ed Getting [...] PM CDT documented as of this encounter Last Filed Vital Signs Vital Sign Reading Time Taken Comments Blood Pressure 139/82 01/23/2023 8:32 AM SKATING [facility]HOP Pulse 95 01/23/2023 8:32 AM SKATING CARHOP Temperature 37.4 ??C (99.4 ??F) 01/23/2023 8:32 AM CS T Respiratory Rate 18 01/23/2023 8:32 AM SKATING CARHOP Oxygen Saturation 96% 01/23/2023 8:32 AM SKATING CARHOP Inhaled Oxygen Concentration - - Weight 113.4 kg (250 lb) 01/23/2023 8:32 AM SKATING [facility]OP Height 194.9 cm (6' 4.75) 01/23/2023 8:32 AM CS T Body Mass Index 29.84 01/23/2023 8:32 AM SKATING CARHOP documented in this encounter Progress Notes * Ivonne Nguyen MD - 01/23/2023 8:30 AM CST [address], [address] [facility] [address] Primary Provider: Ivonne Nguyen Pre-op Performing Provider: IVONNE NGUYEN PREOPERATIVE EVALUATION: Today's date: 01/23/2023 Jarad is a 52 year old male who presents for a preoperative evaluation. Surgical Information: Surgery/Procedure: Ileostomy take down Surgery Location: [facility] Surgeon: Leonarda Surgery Date: 01/29/23 Time of Surgery: Unknowns Where patient plans to recover: At home with family Fax number for surgical facility: Note does not need to be faxed, will be available electronically in [employer]). Assessment & Plan The proposed surgical procedure is considered INTERMEDIATE risk. Preop general physical exam Suitable candidate for planned surgery provided the labs and EKG are stable - EKG 12-lead complete w/read - Clinics - Potassium; Future - Hemoglobin A1c; Future - Hemoglobin; Future - Creatinine; Future Diverticular disease of colon Mesenteric vein thrombosis (H24) Saw hematology and decided on 6 month course OAC, ok to hold Eliquis without bridging anticoagulantfor planned surgery Alopecia On finasteride for this Depression with anxiety He wants to go back on lexapro for mood problems related to his recent illness and his ailing parent; prescription sent - escitalopram (LEXAPRO) 10 MG tablet; Take 1 tablet (10 mg) by mouth daily - No identified additional risk factors other than previously addressed Antiplatelet or Anticoagulation Medication Instructions: - apixaban (Eliquis), edoxaban (Savaysa), rivaroxaban (Xarelto): Bleeding risk is moderate or high for this procedure AND CrCl (>=) 50 mL/min. HOLD 2 days before surgery. Additional Medication Instructions: Patient is to take all scheduled medications on the day of surgery EXCEPT for modifications listed below: RECOMMENDATION: APPROVAL GIVEN to proceed with proposed procedure pending review of diagnostic evaluation. No LOS data to display Time spent by me doing chart review, history and exam, documentation and further activities per thenote Subjective HPI related to upcoming procedure: Needs ileostomy take down. This patient reports being able to perform 4 METS of physical activity without chest pain or dyspnea. 01/22/2023 8:04 AM Preop Questions 1. Have you ever had a heart attack or stroke? No 2. Have you ever had surgery on your heart or blood vessels, such as a stent placement, a coronary artery bypass, or surgery on an artery in your head, neck, heart, or legs? No 3. Do you have chest pain with activity? No 4. Do you have a history of heart failure? No 5. Do you currently have a cold, bronchitis or symptoms of other infection? No 6. Do you have a cough, shortness of breath, or wheezing? No 7. Do you or anyone in your family have previous history of blood clots? YES - on Eliquis for post operative DVT; 6 month course planned 8. Do you or does anyone in your family have a serious bleeding problem such as prolonged bleeding following surgeries or cuts? No 9. Have you ever had problems with anemia or been told to take iron pills? No 10. Have you had any abnormal blood loss such as black, tarry or bloody stools? No 11. Have you ever had a blood transfusion? No 12. Are you willing to have a blood transfusion if it is medically needed before, during, or after your surgery? Yes 13. Have you or any of your relatives ever had problems with anesthesia? No 14. Do you have sleep apnea, excessive snoring or daytime drowsiness? No 15. Do you have any artifical heart valves or other implanted medical devices like a pacemaker, defibrillator, or continuous glucose monitor? No 16. Do you have artificial joints? No 17. Are you allergic to latex? No Review of Systems Constitutional, neuro, ENT, endocrine, pulmonary, cardiac, gastrointestinal, genitourinary, musculoskeletal, integument and psychiatric systems are negative, except as otherwise noted. Patient Active Problem List Diagnosis Date Noted Depression with anxiety 05/17/2020 Priority: Medium Seborrheic dermatitis 03/16/2013 Priority: Medium Diagnosis updated by automated process. Provider to review and confirm. Alopecia 03/16/2013 Priority: Medium Problem list name updated by automated process. Provider to review Past Medical History: Diagnosis Date Major depression Past Surgical History: Procedure Laterality Date NO HISTORY OF SURGERY 03/04/13 derm pyloric stenosis Current Outpatient Medications Medication Sig Dispense Refill apixaban ANTICOAGULANT (ELIQUIS) 5 MG tablet Apixaban Oral TID active (Patient not taking: Reportedon 01/23/2023) finasteride (PROPECIA) 1 MG tablet TAKE 1 TABLET BY MOUTH DAILY 90 tablet 0 Allergies Allergen Reactions Penicillins Hives Social History Tobacco Use Smoking status: Never Smokeless tobacco: Former Quit date: 02/16/2013 Substance Use Topics Alcohol use: No Comment: Sober since 2006 Family History Problem Relation Age of Onset Coronary Artery Disease Father Hyperlipidemia Father History Drug Use No Objective BP 139/82 (BP Location: Right arm, Patient Position: Sitting, Cuff Size: Adult Large) Pulse 95 Temp 99.4 ??F (37.4 ??C) (Oral) Resp 18 Ht 1.949 m (6' 4.75) Wt 113.4 kg (250 lb) SpO2 96% BMI 29.84 kg/m?? Physical Exam GENERAL APPEARANCE: healthy, alert and no distress EYES: EOMI, PERRL HENT: ear canals and TM's normal and nose and mouth without ulcers or lesions NECK: no adenopathy, no asymmetry, masses, or scars and thyroid normal to palpation RESP: lungs clear to auscultation - no rales, rhonchi or wheezes CV: regular rates and rhythm, normal S1 S2, no S3 or S4 and no murmur, click or rub ABDOMEN: soft, nontender, no HSM or masses and bowel sounds normal MS: extremities normal- no gross deformities noted, no evidence of inflammation in joints, FROM in all extremities. SKIN: no suspicious lesions or rashes NEURO: Normal strength and tone, sensory exam grossly normal, mentation intact and speech normal PSYCH: mentation appears normal. and affect normal/bright LYMPHATICS: No cervical adenopathy Diagnostics: Labs pending EKG Pending Revised Cardiac Risk Index (RCRI): The patient has the following serious cardiovascular risks for perioperative complications: - No serious cardiac risks = 0 points RCRI Interpretation: 0 points: Class I (very low risk - 0.4% complication rate) Signed Electronically by: Ivonne Nguyen MD Copy of this evaluation report is provided to requesting physician. ING CARHOP documented in this encounter Miscellaneous Notes * Result Encounter Note - Ivonne Nguyen MD - 01/23/2023 8:30 AM CST NSR rate 75 RBBB ; OK for surgery ING CARHOP * Result Encounter Note - Ivonne Nguyen MD - 01/23/2023 8:30 AM CST The following letter pertains to your most recent diagnostic tests: The cholesterol actually looks better than last check and there is no need for medication for cholesterol based on these results. The 10-year ASCVD risk score (Ciro SANDOVAL, et al., 2019) is: 5.3% -Tests of kidney function are OK for you (Creatinine, GFR). -Your prostate specific antigen (PSA) test result returned normal. -Your hemoglobin A1c test which averages your blood sugars over the last 3 months returned at 6.1 which is in the prediabetes range. -The hemoglobin is normal. No anemia. Bottom line: The labs and EKG look OK for surgery. Prediabetes is a condition in which blood sugar levels are higher than normal but not high enough to be diagnosed as diabetes. If left untreated, prediabetes can progress to type 2 diabetes, a serious condition that can lead to many health problems. The most effective way to prevent prediabetes from progressing to diabetes is to make healthy lifestyle changes. This includes eating a healthy diet that is low in sugar and starches (carbohydrates).It is particularly important to avoid foods that contain added sugars such as high fructose corn syrup. Soda pop, juices, sport drinks, candies and sweets commonly contain added sugars. In addition to changing your diet, increasing physical activity can prevent progression to diabetes. Regular exercise can help improve insulin sensitivity and reduce blood sugar levels. Aim for at 150 minutes of moderate-intensity physical activity each week. This could include brisk walking, cycling, or swimming. Losing weight is an effective way to prevent prediabetes from progressing to diabetes. Even a modest weight loss of 5-10% of you current body weight can make a significant difference in reducing yourrisk of developing type 2 diabetes. A combination of healthy eating and regular exercise can help you lose weight and reduce your risk of developing type 2 diabetes. We can recheck the hemoglobin A1c at your next routine visit in one year. Hopefully, after you recover from surgery all of the above lifestyle changes will be easier to implement. Sincerely, Dr. Nguyen ING CARHOP documented in this encounter Plan of Treatment Not on file documented as of this encounter Procedures Procedure Name Priority Date/Time Associated Diagnosis Comments PROSTATE SPECIFIC ANTIGEN SCREEN Routine 01/23/2023 9:32 AM SKATING [facility]OP Prostate cancer screening POTASSIUM Routine 01/23/2023 9:32 AM [facility]ATING [facility]OP Preop general physical exam LIPID REFLEX TO DIRECT LDL PANEL Routine 01/23/2023 9:32 AM [facility]ATING [facility]OP Lipid screening HEMOGLOBIN A1C Routine 01/23/2023 9:32 AM SKATING [facility]OP Preop general physical exam HEMOGLOBIN Routine 01/23/2023 9:32 AM SKATING [facility]OP Preop general physical exam CREATININE Routine 01/23/2023 9:32 AM SKATING [facility]OP Preop general physical exam EKG 12-LEAD COMPLETE W/READ - CLINICS Routine 01/23/2023 Preop general physical exam documented in this encounter Results * (ABNORMAL) Lipid panel reflex to direct LDL Fasting (01/23/2023 9:32 AM SKATING [facility]OP) Cholesterol 195 <200 mg/dL 01/23/2023 1:53 PM [facility] Triglycerides 241(H) <150 mg/dL 01/23/2023 1:53 PM [facility] Direct Measure HDL 37(L) >=40 mg/dL 01/23/2023 1:53 PM [facility] LDL Cholesterol Calculated 110(H) <=100 mg/dL 01/23/2023 1:53 PM [facility] Non HDL Cholesterol 158(H) <130 mg/dL 01/23/2023 1:53 PM [facility] Blood BLOOD SPECIMEN / Unknown Venipuncture / Unknown 01/23/2023 9:32 AM SKATING [facility]OP 01/23/2023 9:32 AM SKATING [facility]HOP Narrative [facility] - 01/23/2023 1:53 PM [facility]ATING [facility]OP Cholesterol Desirable: ??<200 mg/dL Triglycerides Normal: ??Less than 150 mg/dL Borderline High: ??150-199 mg/dL High: ??200-499 mg/dL Very High: ??Greater than or equal to 500 mg/dL Direct Measure HDL Female: ??Greater than or equal to 50 mg/dL Male: ??Greater than or equal to 40 mg/dL LDL Cholesterol Desirable: ??<100mg/dL Above Desirable: ??100-129 mg/dL Borderline High: ??130-159 mg/dL High: ??160-189 mg/dL Very High: ??>= 190 mg/dL Non HDL Cholesterol Desirable: ??130 mg/dL Above Desirable: ??130-159 mg/dL Borderline High: ??160-189 mg/dL High: ??190-219 mg/dL Very High: ??Greater than or equal to 220 mg/dL Ivonne Nguyen MD LAB - BLOOD ORDERABL ES Performing Organization Address [facility] Phone Number [facility] [address], [address] [address], [facility] [phone] * PSA, screen (01/23/2023 9:32 AM SKATING CARHOP) Prostate Specific Antigen Screen 0.26 0.00 - 3.50 ng/mL 01/23/2023 1:53 PM [facility] Blood BLOOD SPECIMEN / Unknown Venipuncture / Unknown 01/23/2023 9:32 AM SKATING [facility]OP 01/23/2023 9:32 AM SKATING [facility]HOP Narrative [facility] - 01/23/2023 1:53 PM SKATING CARHOP This result is obtained using the Isatu Elecsys total PSA method on the yannick [id number] immunoassay analyzer. Results obtained with different assay methods or kits cannot be used interchangeably. Ivonne Nguyen MD LAB - BLOOD ORDERABL ES Performing Organization Address [facility] Phone Number [facility] [address] [place] [address], [address] [id number], [facility] [phone] * (ABNORMAL) Creatinine (01/23/2023 9:32 AM SKATING CARHOP) Creatinine 1.24(H) 0.67 - 1.17 mg/dL 01/23/2023 1:53 PM [facility] GFR Estimate 71 >60 mL/min/1.7 3m2 01/23/2023 1:53 PM [facility] Blood BLOOD SPECIMEN / Unknown Venipuncture / Unknown 01/23/2023 9:32 AM SKATING [facility]OP 01/23/2023 9:32 AM SKATING CARHOP Ivonne Nguyen MD LAB - BLOOD ORDERABL ES LABORATORY [facility] [address], [address] [place] [address], [facility] [phone] * Hemoglobin (01/23/2023 9:32 AM SKATING CARHOP) Hemoglobin 16.2 13.3 - 17.7 g/dL 01/23/2023 9:35 AM [facility] LABORATORY Blood BLOOD SPECIMEN / Unknown Venipuncture / Unknown 01/23/2023 9:32 AM SKATING [facility]OP 01/23/2023 9:32 AM SKATING CARHOP Ivonne Nguyen MD LAB - BLOOD ORDERABL ES Performing Organization Address [place]/[facility] [[email or web address] Co de Phone Number LABORATORY [facility] [address] [place] [address], [address] [place] [address], [facility] [phone] * (ABNORMAL) Hemoglobin A1c (01/23/2023 9:32 AM SKATING CARHOP) Hemoglobin A1C 6.1(H) 0.0 - 5.6 % 01/23/2023 9:47 AM SKATING [facility] Comment: Normal <5.7% Prediabetes 5.7-6.4% ?? Diabetes 6.5% or higher Note: Adopted from ADA consensus guidelines. Blood BLOOD SPECIMEN / Unknown Venipuncture / Unknown 01/23/2023 9:32 AM SKATING CARHOP 01/23/2023 9:32 AM SKATING CARHOP Ivonne Nguyen MD LAB - BLOOD ORDERABL ES LABORATORY [facility] [address] [place] [address], [address] [place] [address], [facility] [phone] * Potassium (01/23/2023 9:32 AM SKATING CARHOP) Potassium 4.8 3.4 - 5.3 mmol/L 01/23/2023 1:53 PM [facility] Blood BLOOD SPECIMEN / Unknown Venipuncture / Unknown 01/23/2023 9:32 AM SKATING CARHOP 01/23/2023 9:32 AM SKATING CARHOP Ivonne Nguyen MD LAB - BLOOD ORDERABL ES [facility] [address] [facility], [address] [place] [address], [facility] [phone] * EKG 12-lead complete w/read - Clinics (01/23/2023) Ivonne Nguyen MD ECG ORDERABLES documented in this encounter Visit Diagnoses Diagnosis Preop general physical exam- Primary Other specified pre-operative examination Diverticular disease of colon Diverticulosis of colon (without mention of hemorrhage) Mesenteric vein thrombosis (H24) Acute vascular insufficiency of intestine Alopecia Alopecia, unspecified Depression with anxiety Dysthymic disorder Prostate cancer screening Special screening for malignant neoplasm of prostate Lipid screening Screening for lipoid disorders documented in this encounter Additional Health Concerns Assessment Noted Time PHQ-9 Depression Total Score: 8 10/06/19 21 10:49 AM CDT documented as of this encounter Care Teams Holistic Pulser Relationship Specialty Start Date End Date Ivonne Nguyen MD [address] [place] [address] PCP - General Internal Medicine 04/18/16 Ivonne Nguyen MD [address] [place] [address] Assigned PCP 03/23/16 documented as of this encounter
--- OUTSIDE RECORDS SUMMARY | 2023-04-10 10:48 | XMS_ITS | Referral Summary ---
Author Name Unknown [facility] Address [address] [place] [address] Care Team Providers Care Asphalt Roller Operator Name Role Phone Golden Garcia MD Primary Care Provider [phone] Golden Garcia MD Unavailable Encounters Date Type Department Care Team Description 04/09/2023 Orders Only [facility] [address] [address] [facility] [address] [place] [phone] Ashley Adams APRN SPUDDER 04/05/2023 Travel 04/05/2023 4:00 PM ELECTRONIC SCALE TESTER Office Visit [facility] [address] [facility] [address] [place] [phone] Ashley Adams, AKIRA SPUDDER Travel advice encounter (Primary Dx); Immunity status testing 04/04/2023 Travel 03/21/2023 Travel 03/04/[address], [address] [place] [phone] Golden Garcia MD Medication Refill 01/23/2023 Travel 01/23/2023 8:30 AM ELECTRONIC SCALE TESTER Office Visit [place] [address] [facility], [address] [place] [phone] Golden Garcia MD Preop general physical exam (Primary Dx); Diverticular disease of colon; Mesenteric vein thrombosis (H24); Alopecia; Depression with anxiety; Prostate cancer screening; Lipid screening 01/22/2023 Travel from Last 3 Months Allergies Active Allergy Reactions Criticality Noted Date Comments Penicillins Hives 03/04/2013 Medications Medication Sig Dispensed Refills Start Date End Date Status apixaban ANTICOAGULANT (ELIQUIS) 5 MG tablet 0 Active escitalopram (LEXAPRO) 10 MG tabletIndications:De pression with anxiety Take 1 tablet (10 mg) by mouth daily 90 tablet 3 01/23/2023 Active finasteride (PROPECIA) 1 MG tabletIndications:Al opecia TAKE 1 TABLET BY MOUTH DAILY 90 tablet 0 03/05/2023 Active atovaquone-proguanil (MALARONE) 250-100 MG tabletIndications:Tr britt advice encounter Take 1 tablet by mouth daily Start 2 days before travel and continue 7 days after return. 26 tablet 0 04/05/2023 Active azithromycin (ZITHROMAX) 500 MG tabletIndications:Tr britt advice encounter Take 1 tablet (500 mg) by mouth daily for 3 doses Take 1 tablet a day for up to 3 days for severe diarrhea 3 tablet 0 04/05/2023 04/08/2023 Active Problems Problem Noted Date Diagnosed Date Mesenteric vein thrombosis (H24) 01/23/2023 Diverticular disease of colon 01/23/2023 Depression with anxiety 05/17/2020 Seborrheic dermatitis 03/16/2013 Overview: Diagnosis updated by automated process. Provider to review and confirm. Alopecia 03/16/2013 Overview: Problem list name updated by automated process. Provider to review Resolved Problems Problem Noted Date Diagnosed Date Resolved Date Major depressive disorder, r emission status unspecified, unspecified whether recurrent 05/17/2020 05/17/2020 Major depressive disorder wi th single episode, in partial remission (H24) 04/17/2016 05/0 06/2017 Loss of hair 03/04/2013 03/16/2013 Immunizations Name Administration Dates Next Due Influenza Vaccine >6 months,quad, PF 02/10/2022, 12/18/2019,04/17/2016 Influenza,INJ,MDCK,PF,Quad >6mo(Flucelvax) 01/22,05/30/2019,01/23/2018 TDAP Vaccine (Adacel) 04/17/2016 Twinrix A/B 04/05/2023 Typhoid IM 04/05/2023 Yellow Fever 04/05/2023 Social History Tobacco Use Types Packs/Day Years [...] Orientation Straight 10/04/2020 1: 15 PM CDT Last Filed Vital Signs Vital Sign Reading Time Taken Comments Blood Pressure 128/86 04/05/2023 3:58 PM ELECTRONIC SCALE TESTER Pulse 62 04/05/2023 3:58 PM ELECTRONIC SCALE TESTER Temperature 36.4 ??C (97.5 ??F) 04/05/2023 3:58 PM CS T Respiratory Rate 10 04/05/2023 3:58 PM ELECTRONIC SCALE TESTER Oxygen Saturation 95% 04/05/2023 3:58 PM ELECTRONIC SCALE TESTER Inhaled Oxygen Concentration - - Weight 114.8 kg (253 lb) 04/05/2023 3:58 PM ELECTRONIC SCALE TESTER Height 195.6 cm (6' 5) 04/05/2023 3:58 PM ELECTRONIC SCALE TESTER Body Mass Index 30 04/05/2023 3:58 PM ELECTRONIC SCALE TESTER Plan of Treatment Not on file Procedures Procedure Name Priority Date/Time Associated Diagnosis Comments ABO AND RH Routine 04/05/2023 4:50 PM ELECTRONIC SCALE TESTER Travel advice encounter RUBEOLA ANTIBODY IGG Routine 04/05/2023 4:50 PM ELECTRONIC SCALE TESTER Immunity status testing MUMPS IMMUNE STATUS, IGG Routine 04/05/2023 4:50 PM ELECTRONIC SCALE TESTER Immunity status testing RUBELLA ANTIBODY IGG Routine 04/05/2023 4:50 PM ELECTRONIC SCALE TESTER Immunity status testing VARICELLA ZOSTER VIRUS ANTIBODY IGG Routine 04/05/2023 4:50 PM ELECTRONIC SCALE TESTER Immunity status testing LIPID REFLEX TO DIRECT LDL PANEL Routine 01/23/2023 9:32 AM ELECTRONIC SCALE TESTER Lipid screening PROSTATE SPECIFIC ANTIGEN SCREEN Routine 01/23/2023 9:32 AM ELECTRONIC SCALE TESTER Prostate cancer screening CREATININE Routine 01/23/2023 9:32 AM ELECTRONIC SCALE TESTER Preop general physical exam HEMOGLOBIN Routine 01/23/2023 9:32 AM ELECTRONIC SCALE TESTER Preop general physical exam HEMOGLOBIN A1C Routine 01/23/2023 9:32 AM ELECTRONIC SCALE TESTER Preop general physical exam POTASSIUM Routine 01/23/2023 9:32 AM ELECTRONIC SCALE TESTER Preop general physical exam EKG 12-LEAD COMPLETE W/READ - CLINICS Routine 01/23/2023 Preop general physical exam from Last 3 Months Results * Varicella Zoster Virus Antibody IgG (04/05/2023 4:50 PM ELECTRONIC SCALE TESTER) VZV Neela IgG Instrument Value 2,125.0 <135.0 Index 04/09/2023 9:51 AM ELECTRONIC SCALE TESTER [facility] CORE/PROT/END O Varicella Zoster Antibody IgG Positive 04/09/2023 9:51 AM ELECTRONIC SCALE TESTER SPECIALTY CORE/PROT/END O Comment:Suggests previous ex posure or immunization and probable immunity. Blood BLOOD SPECIMEN / Unknown Venipuncture / Unknown 04/05/2023 4:50 PM ELECTRONIC SCALE TESTER 04/05/2023 4:50 PM ELECTRONIC SCALE TESTER Ashley Adams APRN [facility] LAB - BLOOD OR DERABLES Performing Organization Address City/[facility]/ZIP Co de Phone Number SPECIALTY CORE/PROT/ENDO Specialty Core/Prot/Endo [address] [facility], [address] [phone] * Mumps Immune Status, IgG (04/05/2023 4:50 PM ELECTRONIC SCALE TESTER) Mumps Neela IgG Instrument Value 7.5 <9.0 AU/mL 04/09/2023 9:59 AM ELECTRONIC SCALE TESTER SPECIALTY CORE/PROT/EN DO Mumps Antibody IgG Negative, suggests no immunologic exposure. 04/09/2023 9:59 AM ELECTRONIC SCALE TESTER SPECIALTY CORE/PROT/EN DO Blood BLOOD SPECIMEN / Unknown Venipuncture / Unknown 04/05/2023 4:50 PM ELECTRONIC SCALE TESTER 04/05/2023 4:50 PM ELECTRONIC SCALE TESTER Ashley Adams APRN [facility] LAB - BLOOD OR DERABLES Performing Organization Address City/[facility] Co de Phone Number SPECIALTY CORE/PROT/ENDO Specialty Core/Prot/Endo [address] [facility], [address] [phone] * Rubeola Antibody IgG (04/05/2023 4:50 PM ELECTRONIC SCALE TESTER) Rubeola (Measles) Neela IgG Instrument Value >300.0 <13.5 AU/mL 04/09/2023 9:55 AM ELECTRONIC SCALE TESTER SPECIALTY CORE/PROT/END O Rubeola (Measles) Antibody IgG Positive 04/09/2023 9:55 AM ELECTRONIC SCALE TESTER SPECIALTY CORE/PROT/END O Comment:Suggests previous ex posure or immunization and probable immunity. Blood BLOOD SPECIMEN / Unknown Venipuncture / Unknown 04/05/2023 4:50 PM ELECTRONIC SCALE TESTER 04/05/2023 4:50 PM ELECTRONIC SCALE TESTER Ashley Adams APRN [facility] LAB - BLOOD OR DERABLES UM SPECIALTY CORE/PROT/ENDO UM Specialty Core/Prot/Endo [address] [facility], [address] [phone] * Rubella Antibody IgG (04/05/2023 4:50 PM ELECTRONIC SCALE TESTER) Rubella Neela IgG Instrument Value 1.02 <0.90 Index 04/09/2023 10:01 AM ELECTRONIC SCALE TESTER SPECIALTY CORE/PROT/END O Rubella Antibody IgG Positive 04/09/2023 10:01 AM ELECTRONIC SCALE TESTER SPECIALTY CORE/PROT/END O Comment:Suggests previous ex posure or immunization and probable immunity. Blood BLOOD SPECIMEN / Unknown Venipuncture / Unknown 04/05/2023 4:50 PM ELECTRONIC SCALE TESTER 04/05/2023 4:50 PM ELECTRONIC SCALE TESTER Ashley Adams APRN [facility] LAB - BLOOD OR DERABLES UM SPECIALTY CORE/PROT/ENDO Specialty Core/Prot/Endo [address] [facility], [address] [phone] * ABO and Rh (04/05/2023 4:50 PM ELECTRONIC SCALE TESTER) ABO/RH(D) A POS 04/05/2023 4:47 PM ELECTRONIC SCALE TESTER [facility] SPECIMEN EXPIRATION DATE [id number] 04/05/2023 4:47 PM ELECTRONIC SCALE TESTER [facility] B[facility] Blood BLOOD SPECIMEN / Unknown Venipuncture / Unknown 04/05/2023 4:50 PM ELECTRONIC SCALE TESTER 04/05/2023 4:50 PM ELECTRONIC SCALE TESTER Ashley Adams APRN [facility] LAB - BLOOD BA NK TEST ORDER [facility] [address] [place] [address] * PSA, screen (01/23/2023 9:32 AM ELECTRONIC SCALE TESTER) Prostate Specific Antigen Screen 0.26 0.00 - 3.50 ng/mL 01/23/2023 1:53 PM ELECTRONIC SCALE TESTER [facility] Blood BLOOD SPECIMEN / Unknown Venipuncture / Unknown 01/23/2023 9:32 AM ELECTRONIC SCALE TESTER 01/23/2023 9:32 AM ELECTRONIC SCALE TESTER Narrative [facility] - 01/23/2023 1:53 PM ELECTRONIC SCALE TESTER This result is obtained using the Isatu Elecsys total PSA method on the yannick [id number] immunoassay analyzer. Results obtained with different assay methods or kits cannot be used interchangeably. Golden Garcia MD LAB - BLOOD ORDERABL ES [facility] LABORATORY [facility] [place] Core Lab [address] [facility], [address] [address], [facility] [phone] * Potassium (01/23/2023 9:32 AM ELECTRONIC SCALE TESTER) Pathologist [facility] Potassium 4.8 3.4 - 5.3 mmol/L 01/23/2023 1:53 PM ELECTRONIC SCALE TESTER [facility] Blood BLOOD SPECIMEN / Unknown Venipuncture / Unknown 01/23/2023 9:32 AM ELECTRONIC SCALE TESTER 01/23/2023 9:32 AM ELECTRONIC SCALE TESTER Golden Garcia MD LAB - BLOOD ORDERABL ES [facility] [place] [facility] [address] [facility], [address] [address], [facility] [phone] * (ABNORMAL) Lipid panel reflex to direct LDL Fasting (01/23/2023 9:32 AM ELECTRONIC SCALE TESTER) Pathologist [facility] Cholesterol 195 <200 mg/dL 01/23/2023 1:53 PM ELECTRONIC SCALE TESTER [facility] Triglycerides 241(H) <150 mg/dL 01/23/2023 1:53 PM ELECTRONIC SCALE TESTER [facility] Direct Measure HDL 37(L) >=40 mg/dL 01/23/2023 1:53 PM ELECTRONIC SCALE TESTER [facility] LDL Cholesterol Calculated 110(H) <=100 mg/dL 01/23/2023 1:53 PM ELECTRONIC SCALE TESTER [facility] Non HDL Cholesterol 158(H) <130 mg/dL 01/23/2023 1:53 PM ELECTRONIC SCALE TESTER [facility] Blood BLOOD SPECIMEN / Unknown Venipuncture / Unknown 01/23/2023 9:32 AM ELECTRONIC SCALE TESTER 01/23/2023 9:32 AM ELECTRONIC SCALE TESTER Narrative [facility] - 01/23/2023 1:53 PM ELECTRONIC SCALE TESTER Cholesterol Desirable: ??<200 mg/dL Triglycerides Normal: ??Less [...] ??Greater than or equal to 220 mg/dL Golden Garcia MD LAB - BLOOD ORDERABL ES [facility] [place] [facility] [address] [facility], [address] [place] [address], [facility] [phone] * (ABNORMAL) Hemoglobin A1c (01/23/2023 9:32 AM ELECTRONIC SCALE TESTER) Hemoglobin A1C 6.1(H) 0.0 - 5.6 % 01/23/2023 9:47 AM ELECTRONIC SCALE TESTER [facility] LAB[facility]ATORY Comment: Normal <5.7% Prediabetes 5.7-6.4% ?? Diabetes 6.5% or higher Note: Adopted from ADA consensus guidelines. Blood BLOOD SPECIMEN / Unknown Venipuncture / Unknown 01/23/2023 9:32 AM ELECTRONIC SCALE TESTER 01/23/2023 9:32 AM ELECTRONIC SCALE TESTER Golden Garcia MD LAB - BLOOD ORDERABL ES LABORATORY [facility] [address] [place] [address], [address] [place] [address], [facility] [phone] * Hemoglobin (01/23/2023 9:32 AM ELECTRONIC SCALE TESTER) Hemoglobin 16.2 13.3 - 17.7 g/dL 01/23/2023 9:35 AM ELECTRONIC SCALE TESTER [facility] Blood BLOOD SPECIMEN / Unknown Venipuncture / Unknown 01/23/2023 9:32 AM ELECTRONIC SCALE TESTER 01/23/2023 9:32 AM ELECTRONIC SCALE TESTER Golden Garcia MD LAB - BLOOD ORDERABL ES Performing Organization Address City/[facility]/ZIP Co de Phone Number LABORATORY [facility] [address] [place] [address], [address] [place] [address], [facility] [phone] * (ABNORMAL) Creatinine (01/23/2023 9:32 AM ELECTRONIC SCALE TESTER) Creatinine 1.24(H) 0.67 - 1.17 mg/dL 01/23/2023 1:53 PM ELECTRONIC SCALE TESTER [facility] GFR Estimate 71 >60 mL/min/1.7 3m2 01/23/2023 1:53 PM ELECTRONIC SCALE TESTER [facility] Blood BLOOD SPECIMEN / Unknown Venipuncture / Unknown 01/23/2023 9:32 AM ELECTRONIC SCALE TESTER 01/23/2023 9:32 AM ELECTRONIC SCALE TESTER Golden Garcia MD LAB - BLOOD ORDERABL ES [facility] [place] [facility] [address] [facility], [address] [place] [phone], [facility] [phone] * EKG 12-lead complete w/read - Clinics (01/23/2023) Golden Garcia MD ECG ORDERABLES from Last 3 Months Care Teams Asphalt Roller Operator Relationship Specialty Start Date End Date Golden Garcia MD [address] [place] [address] PCP - General Internal Medicine 04/18/16 Golden Garcia MD [address] [place] [address] Assigned PCP 03/23/16
--- OUTSIDE RECORDS SUMMARY | 2023-04-10 10:48 | XMS_ITS | Encounter Summary ---
Author Name Unknown Organization [facility] Address [address] [place] [address] Care Team Providers Care Employee Relation Manager Name Role Phone Golden Garcia MD Primary Care Provider [phone] Golden Garcia MD Unavailable [phone] Encounter Details Date Type Department Care Team (Latest Contact Info) Description 03/21/2023 Travel Social History Tobacco Use Types Packs/Day Years [...] documented as of this encounter Care Teams Employee Relation Manager Relationship Specialty Start Date End Date Golden Garcia MD [address] [place] [phone] PCP - General Internal Medicine 04/18/16 Golden Garcia MD [address] [place] [address] Assigned PCP 03/23/16 documented as of this encounter
--- OUTSIDE RECORDS SUMMARY | 2023-04-10 10:48 | XMS_ITS | Encounter Summary ---
Author Name Unknown Organization [facility] Address [address] [place] [address] Care Team Providers Care Electronic Data Processing Auditor Name Role Phone Golden Garcia MD Primary Care Provider [phone] Golden Garcia MD Unavailable Encounter Details Date Type Department Care Team (Latest Contact Info) Description 04/04/2023 Travel Social History Tobacco Use Types Packs/Day [...] documented as of this encounter Care Teams Electronic Data Processing Auditor Relationship Specialty Start Date End Date Golden Garcia MD [address] [place] [id number] PCP - General Internal Medicine 04/18/16 Golden Garcia MD [address] [place] [id number] Assigned PCP 03/23/16 documented as of this encounter
--- OUTSIDE RECORDS SUMMARY | 2023-04-10 10:48 | XMS_ITS | Encounter Summary ---
Author Name Unknown Organization [facility] Address [address] [place] [address] Care Team Providers Care Supervisor Fabrication Name Role Phone Golden Garcia MD Primary Care Provider [phone] Golden Garcia MD Unavailable [phone] Reason for Visit * Reason Comments Travel Clinic Encounter Details Date Type Department Care Team (Late st Contact Info) Description 04/05/2023 4:00 PM RENDERING EQUIPMENT TENDER Office Visit [facility] [address] [place] [address] Ashley Adams, SENIOR CONTRACTS ADMINISTRATOR CHOCOLATE REFINING ROLLER [address] [place] [address] Travel advice encounter (Primary Dx); Immunity status testing Social History Tobacco Use Types Packs/Day Years [...] Comments Blood Pressure 128/86 04/05/2023 3:58 PM RENDERING EQUIPMENT TENDER Pulse 62 04/05/2023 3:58 PM RENDERING EQUIPMENT TENDER Temperature 36.4 ??C (97.5 ??F) 04/05/2023 3:58 PM CS T Respiratory Rate 10 04/05/2023 3:58 PM RENDERING EQUIPMENT TENDER Oxygen Saturation 95% 04/05/2023 3:58 PM RENDERING EQUIPMENT TENDER Inhaled Oxygen Concentration - - Weight 114.8 kg (253 lb) 04/05/2023 3:58 PM RENDERING EQUIPMENT TENDER Height 195.6 cm (6' 5) 04/05/2023 3:58 PM RENDERING EQUIPMENT TENDER Body Mass Index 30 04/05/2023 3:58 PM RENDERING EQUIPMENT TENDER documented in this encounter Patient Instructions * Patient Instructions* Ashley Adams, AKIRA CHOCOLATE REFINING ROLLER - 04/05/2023 4:00 PM RENDERING EQUIPMENT TENDER Thank you for visiting the [facility] : [phone] Today April 05, 2023 you received the Twinrix (Hepatitis A & B combo) Vaccine - Please return on 05/05/23 for your 2nd dose and 10/02/23 or later for your 3rd and final dose. Yellow Fever (YF) Typhoid - injectable. This vaccine is valid for two years. 05/05/2023 approx TwinRix #2 MMR ( as per blood test results ) Follow up vaccine appointments can be made as a NURSE ONLY visit at the Travel Clinic, (BE PREPAREDTO WAIT, ) or at designated [facility]. If you are receiving the Rabies vaccines series, it is important that you follow the exact scheduleordered. Pre-travel We recommend that you purchase Medical Evacuation Insurance prior to your departure. Https://wwwnc.cdc.gov/travel/page/insurance [place] your travel plans with the Department of [place] through STEP ( Smart Traveler EnrollmentProgram ) https://step.[employer].gov. STEP is a free service to allow U.[place] citizens and nationals traveling and living abroad to enroll their trip with the nearest U.S. Embassy or Consulate. Animal Exposure: Avoid all mammals even if they look healthy. If there is a bite, scratch or even alick, wash area immediately with soap and water for 15 minutes and seek medical care within 24 hours for evaluation of Rabies post exposure treatment. Contact your Medical Evacuation Insurance. Repiratory illness prevention strategies ( Covid and Influenza ) CDC recommendations: Consider wearing a mask in crowded or poorly ventilated indoor areas, including on public transportation and in transportation hubs. Hand washing: frequent, thorough handwashing with soap and water for 20 seconds. Use an alcohol-based hand project management instructor with at least 60% alcohol if soap and water are not readily available. Avoid touching face, nose, eyes, mouth unless you have done appropriate hand washing as above. VACCINES: Staying up to date on COVID-19 vaccines significantly lowers the risk of getting very sick, being hospitalized, or dying from COVID-19. CDC recommends that everyone stay up to date on theirCOVID-19 vaccines, especially people with weakened immune systems. Travel Covid 19 Testing: updated 02/21/2021 International travelers: Pre-travel: See country specific Embassy websites or airline websites. Post travel: CDC recommends getting tested 3-5 days after your trip Post-travel illness: Contact your provider or [facility] if you develop a fever, rash, cough, diarrhea or other symptoms for up to 1 year after travel. Inform your healthcare provider when and where you traveled to. Please call the [facility] with any questions [phone] Or send your provider a 'My Chart' note. ERING EQUIPMENT TENDER documented in this encounter Progress Notes * Bryan Ashleynorberto Kang, AKIRA CHOCOLATE REFINING ROLLER - 04/05/2023 4:00 PM CST Nurse Note ( Pre-Travel Consult) Itinerary: [facility] Departure Date: 05/13 Return Date: 05/28 Length of Trip 3 weeks Reason for Travel: Tourism Urban or rural: rural Accommodations: Hotel Camping IMMUNIZATION HISTORY Have you received any immunizations within the past 4 weeks? No Have you ever fainted from having your blood drawn or from an injection? No Have you ever had a fever reaction to vaccination? No Have you ever had any bad reaction or side effect from any vaccination? No Have you ever had hepatitis A or B vaccine? No Do you live (or work closely) with anyone who has AIDS, an AIDS-like condition, any other immune disorder or who is on chemotherapy for cancer? No Do you have a family history of immunodeficiency? No Have you received any injection of immune globulin or any blood products during the past 12 months?No Patient roomed by Vincent Bairdendy Guerrero is a 52 year old male seen today with his son for counsultation for international travel. Patient will be departing in 5 week(s) and traveling with partner Patient itinerary : will be in the [facility] then [facility] then flight to [facility] region of [facility] which risk for Malaria, Yellow Fever, Rabies, food borne illnesses, and motor vehicle accidents. exposure. Patient's activities will include sightseeing and safari/game ricketts. Patient's country of is [facility] [[email or web address] Special medical concerns: partial colon resection approx 7 months ago. Current hernia ( complication ) Pre-travel questionnaire was completed by patient and reviewed by provider. Vitals: BP 128/86 Pulse 62 Temp 97.5 ??F (36.4 ??C) (Temporal) Resp 10 Ht 1.956 m (6' 5) Wt 114.8 kg (253 lb) SpO2 95% BMI 30.00 kg/m?? BMI= Body mass index is 30 kg/m??. EXAM: General: Well-nourished, well-developed in no acute distress. Appears to be stated age, interacts appropriately and expresses understanding of information given to patient. Current Outpatient Medications Medication Sig Dispense Refill apixaban ANTICOAGULANT (ELIQUIS) 5 MG tablet atovaquone-proguanil (MALARONE) 250-100 MG tablet Take 1 tablet by mouth daily Start 2 days before travel and continue 7 days after return. 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 Patient expressed understanding. Persian Encephalitis: Not indicated Meningococcus: Declined Not concerned about risk of disease. Tetanus/Diphtheria: Up to date Measles/Mumps/Rubella: Titers drawn Cholera: Not needed Polio: Not indicated Pneumococcal: Under age of 65 Varicella: titers requested, history is unknown Shingrix: deferred HPV: Not indicated TB: low risk Altitude Exposure on this trip: no Past tolerance to Altitude: na ASSESSMENT/PLAN: Jarad was seen today for travel clinic. Diagnoses and all orders for this visit: Travel advice encounter - ABO and Rh; Future - atovaquone-proguanil (MALARONE) 250-100 MG tablet; Take 1 tablet by mouth daily Start 2 days before travel and continue 7 days after return. - azithromycin (ZITHROMAX) 500 MG tablet; Take 1 tablet (500 mg) by mouth daily for 3 doses Take 1 tablet a day for up to 3 days for severe diarrhea - ABO and Rh Immunity status testing - Varicella Zoster Virus Antibody IgG; Future - Rubella Antibody IgG; Future - Mumps Immune Status, IgG; Future - Rubeola Antibody IgG; Future - Varicella Zoster Virus Antibody IgG - Rubella Antibody IgG - Mumps Immune Status, IgG - Rubeola Antibody IgG Other orders - YELLOW FEVER, LIVE SQ - TYPHOID VACCINE, IM - HEP A & B (TWINRIX); Standing - HEP A & B (TWINRIX) I have reviewed general recommendations for safe travel including: food/water precautions, insect precautions, safer sex practices given high prevalence of Zika, HIV and other STDs, roadway safety. Educational materials and Travax report provided. Malaraia prophylaxis recommended: Malarone Symptomatic treatment for traveler's diarrhea: azithromycin Evacuation insurance advised and resources were provided to patient. Total visit time 40 minutes with over 50% of time spent counseling patient and shared decision making as detailed above. Ashley Adams CHOCOLATE REFINING ROLLER Certificate in Travel Health ERING EQUIPMENT TENDER documented in this encounter Nursing Notes * Magalis Lopes - 04/05/2023 4:00 PM CST Prior to immunization administration, verified patients identity using patient???s name and date ofbirth. Please see Immunization Activity for additional information. Screening Questionnaire for Adult Immunization Are you sick today? No Do you have allergies to medications, food, a vaccine component or latex? No Have you ever had a serious reaction after receiving a vaccination? No Do you have a long-term health problem with heart, lung, kidney, or metabolic disease (e.g., diabetes), asthma, a blood disorder, no spleen, complement component deficiency, a cochlear implant, or a spinal fluid leak? Are you on long-term aspirin therapy? No Do you have cancer, leukemia, HIV/AIDS, or any other immune system problem? No Do you have a parent, brother, or sister with an immune system problem? No In the past 3 months, have you taken medications that affect your immune system, such as prednisone, other steroids, or anticancer drugs; drugs for the treatment of rheumatoid arthritis, Crohn???s disease, or psoriasis; or have you had radiation treatments? No Have you had a seizure, or a brain or other nervous system problem? No During the past year, have you received a transfusion of blood or blood products, or been given immune (gamma) globulin or antiviral drug? No For women: Are you or is there a chance you could become during the next month? No Have you received any vaccinations in the past 4 weeks? No Immunization questionnaire answers were all negative. Patient instructed to remain in clinic for 15 minutes afterwards, and to report any adverse reactions. Screening performed by Magalis Cnoway on 04/05/2023 at 4:40 PM. ERING EQUIPMENT TENDER documented in this encounter Miscellaneous Notes * Result Encounter Note - Ashley Adams APRN CNP - 04/05/2023 4:00 PM RENDERING EQUIPMENT TENDER Priscila Abraham Your blood test confirms that you do have immunity or protection from Chicken Pox, Measles and Rubella, You are NOT protected against Mumps . I recommend the MMR vaccine. Your blood type is A Positive. I will place and order for the MMR vaccine. You can get it at your primary clinic, the travel clinic with your second Twin Bairon or some pharmacies . Have a safe trip Ashley Adams CNP (Lori) [facility] Certificate in Travel Health ERING EQUIPMENT TENDER documented in this encounter Plan of Treatment Not on file documented as of this encounter Procedures Procedure Name Priority Date/Time Associated Diagnosis Comments VARICELLA ZOSTER VIRUS ANTIBODY IGG Routine 04/05/2023 4:50 PM RENDERING EQUIPMENT TENDER Immunity status testing MUMPS IMMUNE STATUS, IGG Routine 04/05/2023 4:50 PM RENDERING EQUIPMENT TENDER Immunity status testing RUBEOLA ANTIBODY IGG Routine 04/05/2023 4:50 PM RENDERING EQUIPMENT TENDER Immunity status testing RUBELLA ANTIBODY IGG Routine 04/05/2023 4:50 PM RENDERING EQUIPMENT TENDER Immunity status testing ABO AND RH Routine 04/05/2023 4:50 PM RENDERING EQUIPMENT TENDER Travel advice encounter documented in this encounter Results * Rubeola Antibody IgG (04/05/2023 4:50 PM RENDERING EQUIPMENT TENDER) Rubeola (Measles) Neela IgG Instrument Value >300.0 <13.5 AU/mL 04/09/2023 9:55 AM RENDERING EQUIPMENT TENDER SPECIALTY CORE/PROT/END O Rubeola (Measles) Antibody IgG Positive 04/09/2023 9:55 AM RENDERING EQUIPMENT TENDER SPECIALTY CORE/PROT/END O Comment:Suggests previous ex posure or immunization and probable immunity. Blood BLOOD SPECIMEN / Unknown Venipuncture / Unknown 04/05/2023 4:50 PM RENDERING EQUIPMENT TENDER 04/05/2023 4:50 PM RENDERING EQUIPMENT TENDER Ashley Adams APRN [facility] - BLOOD OR DERABLES Performing Organization Address City/[facility]/ZIP Co de Phone Number UM SPECIALTY CORE/PROT/ENDO Specialty Core/Prot/Endo [address] [facility] [address] [facility], [address] [phone] * Mumps Immune Status, IgG (04/05/2023 4:50 PM RENDERING EQUIPMENT TENDER) Mumps Neela IgG Instrument Value 7.5 <9.0 AU/mL 04/09/2023 9:59 AM RENDERING EQUIPMENT TENDER SPECIALTY CORE/PROT/EN DO Mumps Antibody IgG Negative, suggests no immunologic exposure. 04/09/2023 9:59 AM RENDERING EQUIPMENT TENDER SPECIALTY CORE/PROT/EN DO Blood BLOOD SPECIMEN / Unknown Venipuncture / Unknown 04/05/2023 4:50 PM RENDERING EQUIPMENT TENDER 04/05/2023 4:50 PM RENDERING EQUIPMENT TENDER Ashley Adams APRN [facility] - BLOOD OR DERABLES Performing Organization Address City/[facility]/ZIP Co de Phone Number SPECIALTY CORE/PROT/ENDO Specialty Core/Prot/Endo [address] [facility], [address] [address], [facility] [[email or web address]] [phone] * Rubella Antibody IgG (04/05/2023 4:50 PM RENDERING EQUIPMENT TENDER) Rubella Neela IgG Instrument Value 1.02 <0.90 Index 04/09/2023 10:01 AM RENDERING EQUIPMENT TENDER SPECIALTY CORE/PROT/END O Rubella Antibody IgG Positive 04/09/2023 10:01 AM RENDERING EQUIPMENT TENDER SPECIALTY CORE/PROT/END O Comment:Suggests previous ex posure or immunization and probable immunity. Blood BLOOD SPECIMEN / Unknown Venipuncture / Unknown 04/05/2023 4:50 PM RENDERING EQUIPMENT TENDER 04/05/2023 4:50 PM RENDERING EQUIPMENT TENDER Ashley Adams APRN CHOCOLATE REFINING ROLLER LAB - BLOOD OR DERABLES UM SPECIALTY CORE/PROT/ENDO [facility] Specialty Core/Prot/Endo [address] [facility] [address], [address] [phone] * ABO and Rh (04/05/2023 4:50 PM RENDERING EQUIPMENT TENDER) ABO/RH(D) A POS 04/05/2023 4:47 PM RENDERING EQUIPMENT TENDER U BLOOD BANK SPECIMEN EXPIRATION DATE [id number] 04/05/2023 4:47 PM RENDERING EQUIPMENT TENDER BLOOD BANK Blood BLOOD SPECIMEN / Unknown Venipuncture / Unknown 04/05/2023 4:50 PM RENDERING EQUIPMENT TENDER 04/05/2023 4:50 PM RENDERING EQUIPMENT TENDER Ashley Adams APRN CHOCOLATE REFINING ROLLER LAB - BLOOD BA NK TEST ORDER Performing Organization Address City/[facility]/ZIP Co de Phone Number BLOOD BANK [address] [place] [address], [place] * Varicella Zoster Virus Antibody IgG (04/05/2023 4:50 PM RENDERING EQUIPMENT TENDER) VZV Neela IgG Instrument Value 2,125.0 <135.0 Index 04/09/2023 9:51 AM RENDERING EQUIPMENT TENDER SPECIALTY CORE/PROT/END O Varicella Zoster Antibody IgG Positive 04/09/2023 9:51 AM RENDERING EQUIPMENT TENDER SPECIALTY CORE/PROT/END O Comment:Suggests previous ex posure or immunization and probable immunity. Blood BLOOD SPECIMEN / Unknown Venipuncture / Unknown 04/05/2023 4:50 PM RENDERING EQUIPMENT TENDER 04/05/2023 4:50 PM RENDERING EQUIPMENT TENDER Ashley Adams APRN CHOCOLATE REFINING ROLLER LAB - BLOOD OR DERABLES UM SPECIALTY CORE/PROT/ENDO UM Specialty Core/Prot/Endo [address] [facility] [address], [address] [phone] documented in this encounter Visit Diagnoses Diagnosis Travel advice encounter- Primary Immunity status testing Antibody response examination documented in this encounter Additional Health Concerns Assessment Noted Time PHQ-9 Depression Total Score: 8 10/06/19 21 10:49 AM CDT documented as of this encounter Care Teams Supervisor Fabrication Relationship Specialty Start Date End Date Golden Garcia MD [address] [place] [id number] PCP - General Internal Medicine 04/18/16 Golden Garcia MD [address] [place] [id number] Assigned PCP 03/23/16 documented as of this encounter
--- OUTSIDE RECORDS SUMMARY | 2023-04-10 10:48 | XMS_ITS | Encounter Summary ---
Author Name Unknown Organization [place] Address [address] [place] [address] Care Team Providers Care Member Of Congress Name Role Phone Golden Garcia MD Primary Care Provider [phone] Golden Garcia MD Unavailable [phone] Encounter Details Date Type Department Care Team (Latest Contact Info) Description 04/05/2023 Travel Social History Tobacco Use Types Packs/Day [...] documented as of this encounter Care Teams Member Of Congress Relationship Specialty Start Date End Date Golden Garcia MD [address] [place] [id number] PCP - General Internal Medicine 04/18/16 Golden Garcia MD [address] [place] [id number] Assigned PCP 03/23/16 documented as of this encounter
--- OUTSIDE RECORDS SUMMARY | 2023-04-10 10:48 | XMS_ITS | Encounter Summary ---
Author Name Unknown Organization [facility] Address [address] [place] [address] Care Team Providers Care Bakery Assistant Name Role Phone Golden Garcia MD Primary Care Provider [phone] Golden Garcia MD Unavailable [phone] Encounter Details Date Type Department Care Team (Latest Contact Info) Description 01/23/2023 Travel Social History Tobacco Use Types Packs/Day [...] documented as of this encounter Care Teams Bakery Assistant Relationship Specialty Start Date End Date Golden Garcia MD [address] [place] [id number] PCP - General Internal Medicine 04/18/16 Golden Garcia MD [address] [place] [id number] Assigned PCP 03/23/16 documented as of this encounter
--- OUTSIDE RECORDS SUMMARY | 2023-04-10 10:48 | XMS_ITS | Encounter Summary ---
Author Name Unknown Organization [facility] [place] Address [address] [place] [address] Care Team Providers Care Pricing Associate Name Role Phone Golden Garcia MD Primary Care Provider [phone] Golden Garcia MD Unavailable [phone] Reason for Visit * Reason Comments Medication Refill Encounter Details Date Type Department Care Team (Late st Contact Info) Description 03/04/[address] [place] [address] Golden Garcia MD [address] [facility] [address] [place] [address] Medication Refill Social History Tobacco Use Types Packs/Day Years [...] documented as of this encounter Visit Diagnoses Diagnosis Alopecia Alopecia, unspecified documented in this encounter Additional Health Concerns Assessment Noted Time PHQ-9 Depression Total Score: 8 10/06/19 21 10:49 AM CDT documented as of this encounter Care Teams Pricing Associate Relationship Specialty Start Date End Date Golden Garcia MD [address] [place] [id number] PCP - General Internal Medicine 04/18/16 Golden Garcia MD [address] [place] [address] Assigned PCP 03/23/16 documented as of this encounter
--- OUTSIDE RECORDS SUMMARY | 2023-04-10 10:48 | XMS_ITS | Encounter Summary ---
Author Name Unknown Organization [facility] Address [address] [place] [address] Care Team Providers Care Plastic Sheets Finishing Supervisor Name Role Phone Golden Garcia MD Primary Care Provider [phone] Golden Garcia MD Unavailable [phone] Encounter Details Date Type Department Care Team (Latest Contact Info) Description 01/22/2023 Travel Social History Tobacco Use Types Packs/Day [...] documented as of this encounter Care Teams Plastic Sheets Finishing Supervisor Relationship Specialty Start Date End Date Golden Garcia MD [address] [place] [address] PCP - General Internal Medicine 04/18/16 Golden Garcia MD [address] [place] [id number] Assigned PCP 03/23/16 documented as of this encounter
--- OUTSIDE RECORDS SUMMARY | 2023-04-10 10:48 | XMS_ITS | Clinical Summary ---
Author Name Unknown Organization [facility] Address [address] [place] [address] Care Team Providers Care Malt House Kiln Operator Name Role Phone Golden Garcia MD Primary Care Provider [phone] Golden Garcia MD Unavailable [phone] Allergies Active Allergy Reactions Criticality Noted Date [...] 05/0 06/2017 Loss of hair 03/04/2013 03/16/2013 Encounters Date Type Department Care Team Description 04/09/2023 Orders Only [facility] [address] [facility] [address] [place] [address] Ashley Adams APRN STATE AUDITOR 04/05/2023 4:00 PM ELECTRICIAN ELEVATOR MAINTENANCE Office Visit [facility] [address] [facility] [address] [place] [address] Ashley Adams APRN STATE AUDITOR Travel advice encounter (Primary Dx); Immunity status testing 04/05/2023 Travel 04/04/2023 Travel 03/21/2023 Travel 03/04/[address], [address] [place] [address] Golden Garcia MD Medication Refill 01/23/2023 8:30 AM ELECTRICIAN ELEVATOR MAINTENANCE Office Visit [facility] [address] [place] [address], [address] [place] [id number] Golden Garcia MD Preop general physical exam (Primary Dx); Diverticular disease of colon; Mesenteric vein thrombosis (H24); Alopecia; Depression with anxiety; Prostate cancer screening; Lipid screening 01/23/2023 Travel 01/22/2023 Travel from Last 3 Months Immunizations Name Administration Dates Next Due Influenza Vaccine >6 months,quad, PF 02/10/2022, 12/18/2019,04/17/2016 Influenza,INJ,MDCK,PF,Quad >6mo(Flucelvax) 01/22,05/30/2019,01/23/2018 TDAP Vaccine (Adacel) 04/17/2016 Twinrix A/B 04/05/2023 Typhoid IM 04/05/2023 Yellow Fever 04/05/2023 Family History Medical History Relation Comments Coronary Artery Disease Father Hyperlipidemia Father Relation Status Comments Brother 1 Alive Brother 2 Alive Father Alive Maternal Grandfather Maternal Grandmother Mother Alive Paternal Grandfather Paternal Grandmother Son Alive Social History Tobacco Use Types Packs/Day Years [...] Comments Blood Pressure 128/86 04/05/2023 3:58 PM ELECTRICIAN ELEVATOR MAINTENANCE Pulse 62 04/05/2023 3:58 PM ELECTRICIAN ELEVATOR MAINTENANCE Temperature 36.4 ??C (97.5 ??F) 04/05/2023 3:58 PM CS T Respiratory Rate 10 04/05/2023 3:58 PM ELECTRICIAN ELEVATOR MAINTENANCE Oxygen Saturation 95% 04/05/2023 3:58 PM ELECTRICIAN ELEVATOR MAINTENANCE Inhaled Oxygen Concentration - - Weight 114.8 kg (253 lb) 04/05/2023 3:58 PM ELECTRICIAN ELEVATOR MAINTENANCE Height 195.6 cm (6' 5) 04/05/2023 3:58 PM ELECTRICIAN ELEVATOR MAINTENANCE Body Mass Index 30 04/05/2023 3:58 PM ELECTRICIAN ELEVATOR MAINTENANCE Plan of Treatment Health Maintenance Due Date Last Done Comments CT COLONOGRAPHY 1972 FIT 1972 FLEX SIG 1972 sDNA (Cologuard) 1972 COLONOSCOPY 1982 COLORECTAL CANCER SCREENING 1982 YEARLY PREVENTIVE VISIT 05/17/2021 05/18/19 21, 07/20/2017, 04/17/2016 ZOSTER IMMUNIZATION (1 of 2) 2022 HEPATITIS B IMMUNIZATION (2 of 3 - Hep B Twinrix 3-dose series) 05/03/2023 04/05/2023 ANNUAL REVIEW OF HM ORDERS 01/24/2024 01/23/2023 ADVANCE CARE PLANNING 05/17/2025 05/17/2020 DTAP/TDAP/TD IMMUNIZATION (2 - Td or Tdap) 04/17/2026 04/17/2016 LIPID 01/24/2028 01/23/2023, 03/03/2020, 07/20/2017 HEPATITIS C SCREENING Completed 05/17/2020 HIV SCREENING Completed 05/17/2020 COVID-19 Vaccine Completed 01/22/2023, 05/2020, 07/29/2020, Additional history exists INFLUENZA VACCINE Completed 01/22/2023, , 12/18/2019, Additional history exists PHQ-2 (once per calendar year) Completed 04/05/2023, 01/23/2023, 10/05/2020, Additional history exists HPV IMMUNIZATION Aged Out No longer e ligible based on patient's age to complete this topic IPV IMMUNIZATION Aged Out No longer e ligible based on patient's age to complete this topic MENINGITIS IMMUNIZATION Aged Out No l onger eligible based on patient's age to complete this topic Pneumococcal Vaccine: Pediatrics (0 to 5 Years) and At-Risk Patients (6 to 64 Years) Aged Out No longer eligible based on patient's age to complete this topic RSV MONOCLONAL ANTIBODY Aged Out No l onger eligible based on patient's age to complete this topic Procedures Procedure Name Priority Date/Time Associated Diagnosis Comments ABO AND RH Routine 04/05/2023 4:50 PM ELECTRICIAN ELEVATOR MAINTENANCE Travel advice encounter RUBEOLA ANTIBODY IGG Routine 04/05/2023 4:50 PM ELECTRICIAN ELEVATOR MAINTENANCE Immunity status testing MUMPS IMMUNE STATUS, IGG Routine 04/05/2023 4:50 PM ELECTRICIAN ELEVATOR MAINTENANCE Immunity status testing RUBELLA ANTIBODY IGG Routine 04/05/2023 4:50 PM ELECTRICIAN ELEVATOR MAINTENANCE Immunity status testing VARICELLA ZOSTER VIRUS ANTIBODY IGG Routine 04/05/2023 4:50 PM ELECTRICIAN ELEVATOR MAINTENANCE Immunity status testing LIPID REFLEX TO DIRECT LDL PANEL Routine 01/23/2023 9:32 AM ELECTRICIAN ELEVATOR MAINTENANCE Lipid screening PROSTATE SPECIFIC ANTIGEN SCREEN Routine 01/23/2023 9:32 AM ELECTRICIAN ELEVATOR MAINTENANCE Prostate cancer screening CREATININE Routine 01/23/2023 9:32 AM ELECTRICIAN ELEVATOR MAINTENANCE Preop general physical exam HEMOGLOBIN Routine 01/23/2023 9:32 AM ELECTRICIAN ELEVATOR MAINTENANCE Preop general physical exam HEMOGLOBIN A1C Routine 01/23/2023 9:32 AM ELECTRICIAN ELEVATOR MAINTENANCE Preop general physical exam POTASSIUM Routine 01/23/2023 9:32 AM ELECTRICIAN ELEVATOR MAINTENANCE Preop general physical exam EKG 12-LEAD COMPLETE W/READ - CLINICS Routine 01/23/2023 Preop general physical exam from Last 3 Months Results * Varicella Zoster Virus Antibody IgG (04/05/2023 4:50 PM ELECTRICIAN ELEVATOR MAINTENANCE) VZV Neela IgG Instrument Value 2,125.0 <135.0 Index 04/09/2023 9:51 AM ELECTRICIAN ELEVATOR MAINTENANCE SPECIALTY CORE/PROT/END O Varicella Zoster Antibody IgG Positive 04/09/2023 9:51 AM ELECTRICIAN ELEVATOR MAINTENANCE SPECIALTY CORE/PROT/END O Comment:Suggests previous ex posure or immunization and probable immunity. Blood BLOOD SPECIMEN / Unknown Venipuncture / Unknown 04/05/2023 4:50 PM ELECTRICIAN ELEVATOR MAINTENANCE 04/05/2023 4:50 PM ELECTRICIAN ELEVATOR MAINTENANCE Ashley Adams APRN [facility] LAB - BLOOD OR DERABLES Performing Organization Address [facility]/ZIP Co de Phone Number SPECIALTY CORE/PROT/ENDO Specialty Core/Prot/Endo [address] [facility], [address] [phone] * Mumps Immune Status, IgG (04/05/2023 4:50 PM ELECTRICIAN ELEVATOR MAINTENANCE) Mumps Neela IgG Instrument Value 7.5 <9.0 AU/mL 04/09/2023 9:59 AM ELECTRICIAN ELEVATOR MAINTENANCE SPECIALTY CORE/PROT/EN DO Mumps Antibody IgG Negative, suggests no immunologic exposure. 04/09/2023 9:59 AM ELECTRICIAN ELEVATOR MAINTENANCE SPECIALTY CORE/PROT/EN DO Blood BLOOD SPECIMEN / Unknown Venipuncture / Unknown 04/05/2023 4:50 PM ELECTRICIAN ELEVATOR MAINTENANCE 04/05/2023 4:50 PM ELECTRICIAN ELEVATOR MAINTENANCE Ashley Adams APRN [facility] - BLOOD OR DERABLES Performing Organization Address City/[facility] Co de Phone Number SPECIALTY CORE/PROT/ENDO Specialty Core/Prot/Endo [address] [facility], [address] [phone] * Rubeola Antibody IgG (04/05/2023 4:50 PM ELECTRICIAN ELEVATOR MAINTENANCE) Rubeola (Measles) Neela IgG Instrument Value >300.0 <13.5 AU/mL 04/09/2023 9:55 AM ELECTRICIAN ELEVATOR MAINTENANCE SPECIALTY CORE/PROT/END O Rubeola (Measles) Antibody IgG Positive 04/09/2023 9:55 AM ELECTRICIAN ELEVATOR MAINTENANCE SPECIALTY CORE/PROT/END O Comment:Suggests previous ex posure or immunization and probable immunity. Blood BLOOD SPECIMEN / Unknown Venipuncture / Unknown 04/05/2023 4:50 PM ELECTRICIAN ELEVATOR MAINTENANCE 04/05/2023 4:50 PM ELECTRICIAN ELEVATOR MAINTENANCE Ashley Adams APRN STATE AUDITOR LAB - BLOOD OR DERABLES SPECIALTY CORE/PROT/ENDO Specialty Core/Prot/Endo [address] [facility] [address], [address] [phone] * Rubella Antibody IgG (04/05/2023 4:50 PM ELECTRICIAN ELEVATOR MAINTENANCE) Rubella Neela IgG Instrument Value 1.02 <0.90 Index 04/09/2023 10:01 AM ELECTRICIAN ELEVATOR MAINTENANCE SPECIALTY CORE/PROT/END O Rubella Antibody IgG Positive 04/09/2023 10:01 AM ELECTRICIAN ELEVATOR MAINTENANCE SPECIALTY CORE/PROT/END O Comment:Suggests previous ex posure or immunization and probable immunity. Blood BLOOD SPECIMEN / Unknown Venipuncture / Unknown 04/05/2023 4:50 PM ELECTRICIAN ELEVATOR MAINTENANCE 04/05/2023 4:50 PM ELECTRICIAN ELEVATOR MAINTENANCE Ashley Adams APRN STATE AUDITOR LAB - BLOOD OR DERABLES UM SPECIALTY CORE/PROT/ENDO Specialty Core/Prot/Endo [address] [facility], [address] [place] [address] * ABO and Rh (04/05/2023 4:50 PM ELECTRICIAN ELEVATOR MAINTENANCE) ABO/RH(D) A POS 04/05/2023 4:47 PM ELECTRICIAN ELEVATOR MAINTENANCE [facility] BLOOD BANK SPECIMEN EXPIRATION DATE [id number] 04/05/2023 4:47 PM ELECTRICIAN ELEVATOR MAINTENANCE UU BLOOD BANK Blood BLOOD SPECIMEN / Unknown Venipuncture / Unknown 04/05/2023 4:50 PM ELECTRICIAN ELEVATOR MAINTENANCE 04/05/2023 4:50 PM ELECTRICIAN ELEVATOR MAINTENANCE Ashley Adams APRN STATE AUDITOR LAB - BLOOD BA NK TEST ORDER [facility] BLOOD BANK [address] [place] [address] * PSA, screen (01/23/2023 9:32 AM ELECTRICIAN ELEVATOR MAINTENANCE) Prostate Specific Antigen Screen 0.26 0.00 - 3.50 ng/mL 01/23/2023 1:53 PM ELECTRICIAN ELEVATOR MAINTENANCE [facility] Blood BLOOD SPECIMEN / Unknown Venipuncture / Unknown 01/23/2023 9:32 AM ELECTRICIAN ELEVATOR MAINTENANCE 01/23/2023 9:32 AM ELECTRICIAN ELEVATOR MAINTENANCE Narrative [facility] - 01/23/2023 1:53 PM ELECTRICIAN ELEVATOR MAINTENANCE This result is obtained using the Isatu Elecsys total PSA method on the yannick [id number] immunoassay analyzer. Results obtained with different assay methods or kits cannot be used interchangeably. Golden Garcia MD LAB - BLOOD ORDERABL ES U LABORATORY [facility] [address] [facility], [address] [address], [facility] [phone] * Potassium (01/23/2023 9:32 AM ELECTRICIAN ELEVATOR MAINTENANCE) Pathologist [facility] Potassium 4.8 3.4 - 5.3 mmol/L 01/23/2023 1:53 PM ELECTRICIAN ELEVATOR MAINTENANCE [facility] Blood BLOOD SPECIMEN / Unknown Venipuncture / Unknown 01/23/2023 9:32 AM ELECTRICIAN ELEVATOR MAINTENANCE 01/23/2023 9:32 AM ELECTRICIAN ELEVATOR MAINTENANCE Golden Garcia MD LAB - BLOOD ORDERABL ES U LABORATORY [facility] [address] [facility], [address] [address], [facility] [phone] * (ABNORMAL) Lipid panel reflex to direct LDL Fasting (01/23/2023 9:32 AM ELECTRICIAN ELEVATOR MAINTENANCE) Pathologist [facility] Cholesterol 195 <200 mg/dL 01/23/2023 1:53 PM ELECTRICIAN ELEVATOR MAINTENANCE [facility] Triglycerides 241(H) <150 mg/dL 01/23/2023 1:53 PM ELECTRICIAN ELEVATOR MAINTENANCE [facility] Direct Measure HDL 37(L) >=40 mg/dL 01/23/2023 1:53 PM ELECTRICIAN ELEVATOR MAINTENANCE [facility] LDL Cholesterol Calculated 110(H) <=100 mg/dL 01/23/2023 1:53 PM ELECTRICIAN ELEVATOR MAINTENANCE [facility] Non HDL Cholesterol 158(H) <130 mg/dL 01/23/2023 1:53 PM ELECTRICIAN ELEVATOR MAINTENANCE [facility] Blood BLOOD SPECIMEN / Unknown Venipuncture / Unknown 01/23/2023 9:32 AM ELECTRICIAN ELEVATOR MAINTENANCE 01/23/2023 9:32 AM ELECTRICIAN ELEVATOR MAINTENANCE Narrative [facility] - 01/23/2023 1:53 PM ELECTRICIAN ELEVATOR MAINTENANCE Cholesterol Desirable: ??<200 mg/dL Triglycerides Normal: ??Less [...] LAB - BLOOD ORDERABL ES [facility] [address] [facility], [address] [place] [address], [facility] [phone] * (ABNORMAL) Hemoglobin A1c (01/23/2023 9:32 AM ELECTRICIAN ELEVATOR MAINTENANCE) Hemoglobin A1C 6.1(H) 0.0 - 5.6 % 01/23/2023 9:47 AM ELECTRICIAN ELEVATOR MAINTENANCE [facility] Comment: Normal <5.7% Prediabetes 5.7-6.4% ?? Diabetes 6.5% or higher Note: Adopted from ADA consensus guidelines. Blood BLOOD SPECIMEN / Unknown Venipuncture / Unknown 01/23/2023 9:32 AM ELECTRICIAN ELEVATOR MAINTENANCE 01/23/2023 9:32 AM ELECTRICIAN ELEVATOR MAINTENANCE Golden Garcia MD LAB - BLOOD ORDERABL ES LABORATORY [facility] [address] [place] [address], [address] [place] [address], [facility] [phone] * Hemoglobin (01/23/2023 9:32 AM ELECTRICIAN ELEVATOR MAINTENANCE) Hemoglobin 16.2 13.3 - 17.7 g/dL 01/23/2023 9:35 AM ELECTRICIAN ELEVATOR MAINTENANCE LABORATORY Blood BLOOD SPECIMEN / Unknown Venipuncture / Unknown 01/23/2023 9:32 AM ELECTRICIAN ELEVATOR MAINTENANCE 01/23/2023 9:32 AM ELECTRICIAN ELEVATOR MAINTENANCE Golden Garcia MD LAB - BLOOD ORDERABL ES Performing Organization Address [facility]/ZIP Co de Phone Number LABORATORY [address], [address] [place] [address], [facility] [phone] * (ABNORMAL) Creatinine (01/23/2023 9:32 AM ELECTRICIAN ELEVATOR MAINTENANCE) Creatinine 1.24(H) 0.67 - 1.17 mg/dL 01/23/2023 1:53 PM ELECTRICIAN ELEVATOR MAINTENANCE [facility] GFR Estimate 71 >60 mL/min/1.7 3m2 01/23/2023 1:53 PM ELECTRICIAN ELEVATOR MAINTENANCE [facility] Blood BLOOD SPECIMEN / Unknown Venipuncture / Unknown 01/23/2023 9:32 AM ELECTRICIAN ELEVATOR MAINTENANCE 01/23/2023 9:32 AM ELECTRICIAN ELEVATOR MAINTENANCE Golden Garcia MD LAB - BLOOD ORDERABL ES [facility] [address] [facility], [address] [place] [address], [place] [phone] * EKG 12-lead complete w/read - Clinics (01/23/2023) Golden Garcia MD ECG ORDERABLES from Last 3 Months Care Teams Malt House Kiln Operator Relationship Specialty Start Date End Date Golden Garcia MD [address] [place] [id number] PCP - General Internal Medicine 04/18/16 Golden Garcia MD [address] [place] [id number] Assigned PCP 03/23/16
--- OUTSIDE RECORDS SUMMARY | 2023-04-10 10:49 | XMS_ITS | Encounter Summary ---
Author Name Unknown Organization [facility] Address [address] [place] [address] Care Team Providers Care Water Inspector Name Role Phone Golden Garcia MD Primary Care Provider [phone] Golden Garcia MD Unavailable [phone] Karan Mancini MD Unavailable [phone] Vaughn Johnson MD Unavailable + [phone] Vaughn Johnson MD Unavailable + [phone] Encounter Details Date Type Department Care Team (Late st Contact Info) Description 08/01/2018 MyC Medical Advice [facility] [address] [facility], [address] [place] [address] Mago Ivy RN Social History Tobacco Use Types Packs/Day Years Used Date Smoking Tobacco: Never Smokeless Tobacco: Former Alcohol Use Standard Drinks/Week Comments No 0 (1 standard drink = 0.6 oz pur e alcohol) Sober since 2006 PHQ-2 Answer Date Recorded PHQ-2 Score 0 03/26/2018 Sex and Gender Information Value Date Recorded Sex Assigned at Male 10/04/2020 1:15 PM CDT Gender Identity Male 10/04/2020 1:15 PM CDT Sexual Orientation Straight 10/04/2020 1: 15 PM CDT documented as of this encounter Plan of Treatment Not on file documented as of this encounter Visit Diagnoses Not on filedocumented in this encounter Care Teams Water Inspector Relationship Specialty Start Date End Date Golden Garcia MD [address] [facility] [address] [place] [phone] PCP - General Internal Medicine 04/18/16 Golden Garcia MD [address] [place] [id number] Assigned PCP 03/23/16 Karan Mancini MD [address] [place] [id number] Assigned Heart and Vascular Provider 06/27/20 07/03/20 Vaughn Johnson MD [address] [place] [address] Assigned Heart and Vascular Provider 07/04/20 12/30/21 Vaughn Johnson MD [address] [place] [address] Assigned Heart and Vascular Provider 06/20/20 06/26/20 documented as of this encounter
--- OUTSIDE RECORDS SUMMARY | 2023-04-10 10:49 | XMS_ITS | Encounter Summary ---
Author Name Unknown Organization [facility] Address [address] [facility] [place] [address] Care Team Providers Care Sectionizer Name Role Phone Golden Garcia MD Primary Care Provider Golden Garcia MD Unavailable [phone] Golden Garcia MD Unavailable [phone] Karan Mancini MD Unavailable [phone] Vaughn Johnson MD Unavailable + [phone] Vaughn Johnson MD Unavailable + [phone] Reason for Visit * Reason Comments Medication Refill propecia Encounter Details Date Type Department Care Team (Late st Contact Info) Description 03/10/[address] [place] [address] Golden Garcia MD [address] [facility] [address] [place], [place] [id number] Medication Refill (propecia ) Social History Tobacco Use Types Packs/Day Years Used Date Smoking Tobacco: Never Smokeless Tobacco: Former Alcohol Use Standard Drinks/Week Comments Not Asked 0 (1 standard drink = 0.6 oz pur e alcohol) Sex and Gender Information Value Date Recorded Sex Assigned at Male 10/04/2020 1:15 PM CDT Gender Identity Male 10/04/2020 1:15 PM CDT Sexual Orientation Straight 10/04/2020 1: 15 PM CDT documented as of this encounter Miscellaneous Notes * Telephone Encounter - Swati Velasco CMA - 03/10/2016 3:50 PM [facility] CULLER Patient scheduled Physical with Dr. Garcia on Sunday03/27/2016 Dr. Garcia, Please refill pended if appropriate ER C[facility]ER * Telephone Encounter - Alexandra Heredia RN - 03/10/2016 12:22 PM CST Left message on answering machine for patient to call back. Never been seen at this clinic. Not a [facility] patient. Not sure if he was previous SIM patient. Would need appointment to [facility] in order to proceed with 30 day RX. Alexandra Heredia RN, BSN ER CULLER * Telephone Encounter - Felicita Silverio CMA - 03/10/2016 11:50 AM OYSTER CULLER finasteride (PROPECIA) 1 MG tablet -- ?? Sig: Take 1 mg by mouth daily ?? Class: Historical Last Written Prescription Date: Historical entry from 2013 Last Fill Quantity: --, # refills: -- Last Office Visit with [facility], [facility] or [facility] prescribing provider: no seen here I do not see any [place] records scanned into [employer] ER C[facility]ER documented in this encounter Plan of Treatment Not on file documented as of this encounter Visit Diagnoses Diagnosis Alopecia- Primary Alopecia, unspecified documented in this encounter Care Teams Sectionizer Relationship Specialty Start Date End Date Golden Garcia MD [address] [place] [id number] PCP - General Internal Medicine 04/18/16 Golden Garcia MD [address] [place] [address] PCP - Assigned PCP 03/23/16 05/21/18 Golden Garcia MD [address] [place] [address] Assigned PCP 03/23/16 Karan Mancini MD [address] [place] [address] Assigned Heart and Vascular Provider 06/27/20 07/03/20 Vaughn Johnson MD [address] [place] [address] Assigned Heart and Vascular Provider 07/04/20 12/30/21 Vaughn Johnosn MD [address] [place] [address] Assigned Heart and Vascular Provider 06/20/20 06/26/20 documented as of this encounter
--- OUTSIDE RECORDS SUMMARY | 2023-04-10 10:49 | XMS_ITS | Clinical Summary ---
Author Name Unknown Organization [facility] Address [address] [place] [address] Care Team Providers Care Rn Circulating Name Role Phone Golden Garcia MD Primary Care Provider [phone] Source Comments You are receiving this document as you are listed as the primary care provider,follow-up provider, or the patient has been referred to you for consultation.This is in compliance with the Medicare and[employer] EHR Incentive Program,which states Providers who transition their patient to another setting of careor provider of care or refers their patient to another provider of care shouldprovide summary care record for each transition of care or referral. [facility] Allergies Active Allergy Reactions Criticality Noted Date Comments Penicillins 11/20/2004 PN: LW Reaction: HIVES Medications Medication Sig Dispensed Refills Start Date End Date Status unknown medication Indications: PN: 0 11/20/2004 Active finasteride (AKA PROSCAR) 1 MG tablet Take 1 mg by mouth daily (every 24 hours). 0 08/04/2013 Active vilazodone (VIIBRYD) 40 MG TABS tablet Take 40 mg by mouth daily (with breakfast). 0 08/04/2013 Active buPROPion (WELLBUTRIN XL) 150 MG 24 hour release tablet 0 03/22/2018 Active Active Problems No known active problems Immunizations Name Administration Dates Next Due Pfizer Monovalent 12+ Purple Top 02/18/2021 Social History Tobacco Use Types Packs/Day Years Used Date Smoking Tobacco: Never Smokeless Tobacco: Never Alcohol Use Standard Drinks/Week Comments No 0 (1 standard drink = 0.6 oz pur e alcohol) Sex and Gender Information Value Date Recorded Sex Assigned at Not on file Gender Identity Not on file Sexual Orientation Not on file Last Filed Vital Signs Vital Sign Reading Time Taken Comments Blood Pressure 114/72 04/11/2018 11:43 AM PHOTO GRAPHICS LIBRARIAN Pulse 78 11/20/2004 10:14 AM CDT Temperature 36.6 ??C (97.9 ??F) 04/11/2018 11:[address] Respiratory Rate 16 11/20/2004 10:14 AM CDT Oxygen Saturation - - Inhaled Oxygen Concentration - - Weight 108.9 kg (240 lb) 04/01/2019 11:06 AM PHOTO GRAPHICS LIBRARIAN Height 195.6 cm (6' 5) 04/01/2019 11:06 AM PHOTO GRAPHICS LIBRARIAN Body Mass Index 28.46 04/01/2019 11:06 AM PHOTO GRAPHICS LIBRARIAN Plan of Treatment Health Maintenance Due Date Last Done Comments Colon Cancer Screening Plan Due 1972 Hep C Screening (Preventive Services) 1972 HepB (1) 1972 PSA Screening Discussion 1972 HIV Screening (Preventive Services) 1988 Adult Preventive Visit 1990 Cholesterol 09/29/2007 Zoster/Shingles (1 of 2) 2022 COVID-19 Vaccine (2 - season) 2022 02/18/2021 Influenza (#1) 2022 12/18/2019, 05/17, 01/23/2018, Additional history exists DTaP/Tdap/Td (2 - Tdap) 04/17/2026 04/17/2016 HepA Aged Out No longer eligi ble based on patient's age to complete this topic Hib Aged Out No longer eligi ble based on patient's age to complete this topic IPV (Polio) Aged Out No longer eligi ble based on patient's age to complete this topic MCV4 Aged Out No longer eligi ble based on patient's age to complete this topic Pneumococcal Aged Out No longer eligi ble based on patient's age to complete this topic Care Teams Rn Circulating Relationship Specialty Start Date End Date Golden Garcia MD [address] [facility] [address] [place] [address] [facility] - General 07/28/13
--- OUTSIDE RECORDS SUMMARY | 2023-04-10 10:49 | XMS_ITS | Encounter Summary ---
Author Name Unknown Organization [facility] Address [address] [place] [address] Care Team Providers Care Yarn Skeins Examiner Name Role Phone Golden Garcia MD Primary Care Provider [phone] Golden Garcia MD Unavailable [phone] Encounter Details Date Type Department Care Team (Latest Contact Info) Description 09/26/2022 Travel Social History Tobacco Use Types Packs/Day [...] documented as of this encounter Care Teams Yarn Skeins Examiner Relationship Specialty Start Date End Date Golden Garcia MD [address] [facility] [address] [place] [address] PCP - General Internal Medicine 04/18/16 Golden Garcia MD [address] [facility] [address] [place] [address] Assigned PCP 03/23/16 documented as of this encounter
--- OUTSIDE RECORDS SUMMARY | 2023-04-10 10:49 | XMS_ITS | Encounter Summary ---
Author Name Unknown Organization [place] Address [address] [place] [address] Care Team Providers Care Register Of Wills Name Role Phone Golden Garcia MD Primary Care Provider [phone] Golden Garcia MD Unavailable [phone] Reason for Visit * Reason Onset Date Comments Appointment 09/15/2022 Encounter Details Date Type Department Care Team (Late st Contact Info) Description 09/15/2022 Telephone [facility] Wound Ostomy Clinic [address], [address] [place] [id number] Jeronimo Miller, RN Appointment Social History Tobacco Use Types Packs/Day Years [...] encounter Miscellaneous Notes * Telephone Encounter - Jeronimo Miller RN - 09/15/2022 9:16 AM CDT Outpatient Ostomy Clinic Telephone Note Patient called and requested follow up visit with ostomy nurse following surgery he had at [facility]. WOC returned call and left VM for patient. [facility] nurse would be able to accomodate a visit the week of 09/25 On either 09/26 or 09/28 if this is a routine visit. However if patient is having leakage or Ostomy problems we could see him 09/20, 09/21 or 09/22. Will await patient return call to schedule appointment. Jeronimo Miller RN CWOCN -Securely message with Marley Spoon) - can reach individually by name or search 'WOC Nurse' (Madhuri) to reach all current WOCs on duty. WOC Office documented in this encounter Plan of Treatment Not on file documented as of this encounter Visit Diagnoses Not on filedocumented in this encounter Additional Health Concerns Assessment Noted Time PHQ-9 Depression Total Score: 8 10/06/19 21 10:49 AM CDT documented as of this encounter Care Teams Register Of Wills Relationship Specialty Start Date End Date Golden Garcia MD [address] [place] [address] PCP - General Internal Medicine 04/18/16 Golden Garcia MD [address] [place] [address] Assigned PCP 03/23/16 documented as of this encounter
--- OUTSIDE RECORDS SUMMARY | 2023-04-10 10:49 | XMS_ITS | Encounter Summary ---
Author Name Unknown Organization [place] Address [address] [place] [address] Care Team Providers Care Analysis Or Research Safety Inspector Name Role Phone Golden Garcia MD Primary Care Provider [phone] Golden Garcia MD Unavailable [phone] Encounter Details Date Type Department Care Team (Late st Contact Info) Description 09/26/2022 10:00 AM CDT - 09/26/2022 11:59 PM CDT Hospital Encounter [facility] Wound Ostomy Clinic [place] [address], [address] [place] [phone] Non-Fv Credentialed Provider, Lab 743, Ostomy Wound Room, RN Golden Garcia, [address] [facility] [address] [place] [address] Discharge Disposition: Home or Self Care Social History Tobacco Use Types Packs/Day Years [...] AM CDT documented as of this encounter Discharge Instructions * Discharge Instructions* Magali Jin RN - 09/26/2022 10:59 AM CDT OUTPATIENT OSTOMY INSTRUCTIONS Type of Stoma: Ileostomy Supplier: [employer] Equipment: Product # Brand Description Pouch 10694 Don Lock n roll beige with filter Flange 71502 Don soft convex 1 1/8 precut Paste 8805 Don Adapt Powder 7906 Whitman Adapt Liquid Skin Barrier 3344 3M Cavilon [place] [address] [place] [address] Don Odor eliminator 8oz or packets Optional pouch 7300 Don Medium Belt Procedure: Close the bottom of the pouch. If needed cut the opening of your pouch to the correct size (follow pattern or 1/8 inch larger than stoma) and then remove backings from adhesive surfaces. Remove the soiled pouch and discard. Wash skin with water and dry. Then: Apply powder to open areas only, brush off excess powder. and Apply Skin Prep over powdered area. Then: Apply Ring/Paste: Around edge of pouch opening. Then: Apply pouching system to stoma site and hold in place for 2-5 minutes. Pouch Change: Twice weekly [facility] Nurse Specialist: Magali Questions: Madhuri [phone] () Follow-up Appointment: As needed or in 3 months Please call Madhuri [phone] () to request an appointment. documented in this encounter Medications at Time of Discharge Medication Sig Dispensed Refills Start Date End Date ciprofloxacin (CIPRO) 500 MG tabletIndications:Diver ticulitis of colon Take 1 tablet (500 mg) by mouth 2 times daily 14 tablet 0 10/05/2020 01/23/2023 escitalopram (LEXAPRO) 10 MG tablet 0 10/04/2020 01/23/2023 finasteride (PROPECIA) 1 MG tabletIndications:Alope roxanna TAKE 1 TABLET BY MOUTH DAILY 90 tablet 0 06/20/2022 03/05/2023 fish oil-omega-3 fatty acids 1000 MG capsule Take 1 g by mouth daily 0 01/23/2023 glucosamine-chondroitin 500-400 MG CAPS per capsule Take 1 capsule by mouth daily 0 01/23/2023 metroNIDAZOLE (FLAGYL) 500 MG tabletIndications:Diver ticulitis of colon Take 1 tablet (500 mg) by mouth 2 times daily 14 tablet 0 10/05/2020 01/23/2023 TURMERIC PO Take by mouth daily 0 01/24/20 documented as of this encounter Progress Notes * Magali Jin, RN - 09/26/2022 10:00 AM CDT OUTPATIENT OSTOMY ASSESSMENT INTAKE Type of Stoma: Temporary Ileostomy Anticipated date of takedown: 3-6 months Diagnosis Pertinent to Stoma: Diverticulitis with perforation Surgery Date: 09/01/22 [facility] Purpose of this visit: Checkup:postop Pertinent Information: New ileostomy, no concerns. Wanting to discuss pouching options Present for Teaching Session: Patient and Friend Tawana Glass Artist Present: BRENDA Current Equipment: 70mm flat with lock and roll pouch and cavilon no sting barrier film Pouch Change Frequency: 2x weekly Provider of Care: Emptying: Patient or friend Pouch Change: Friend Tawana ASSESSMENT Stoma Size: Round 1 1/8 inches Protrusion: Flush Stoma Appearance: Red and Moist Mucocutaneous Juncture: Intact Peristomal Skin: Full thickness wound Abdominal Assessment: Wound (location: peristomally about 0.5cm out from stoma) erosion TREATMENT Applied Stoma Powder and Applied No Sting Skin barrier INTERVENTIONS Refitting done and Educated on peristomal skin treatment, started in soft convex, ring and stoma powder INSTRUCTIONS GIVEN WOC Role, Activity, Anatomy, Clothing, Pouching Products: Showed pouching system , Ordering supplies and Shaving PLAN Change in Supplies: See Outpatient Ostomy Instructions and New Pouching Procedure: See Outpatient Ostomy Instructions Total Time Spent with Patient: 60 minutes Magali Jin CWOCN Dept. Vocera- Contact WOC Nurse (Madhuri) via Vocera Dept. Office Number: [phone] documented in this encounter Plan of Treatment Not on file documented as of this encounter Visit Diagnoses Not on filedocumented in this encounter Additional Health Concerns Assessment Noted Time PHQ-9 Depression Total Score: 8 10/06/19 21 10:49 AM CDT documented as of this encounter Care Teams Analysis Or Research Safety Inspector Relationship Specialty Start Date End Date Golden Garcia MD [address] [place] [address] PCP - General Internal Medicine 04/18/16 Golden Garcia MD [address] [place] [address] Assigned PCP 03/23/16 documented as of this encounter
--- OUTSIDE RECORDS SUMMARY | 2023-04-10 10:49 | XMS_ITS | Encounter Summary ---
Author Name Unknown Organization [facility] Address [address] [facility] [place] [address] Care Team Providers Care Lead Software Engineer Name Role Phone Golden Garcia MD Primary Care Provider Golden Garcia MD Unavailable [phone] Golden Garcia MD Unavailable [phone] Karan Mancini MD Unavailable [phone] Vaughn Johnson MD Unavailable [phone] Vaughn Johnson MD Unavailable + [phone] Reason for Visit * Reason Comments Medication Refill Encounter Details Date Type Department Care Team (Late st Contact Info) Description 06/27/[address] [place] [address] Golden Garcia MD [address] [facility] [address] [place], [place] [address] Medication Refill Social History Tobacco Use Types Packs/Day Years Used Date Smoking Tobacco: Never Smokeless Tobacco: Former Alcohol Use Standard Drinks/Week Comments Not Asked 0 (1 standard drink = 0.6 oz pur e alcohol) Sober since 2006 Sex and Gender Information Value Date Recorded Sex Assigned at Male 10/04/2020 1:15 PM CDT Gender Identity Male 10/04/2020 1:15 PM CDT Sexual Orientation Straight 10/04/2020 1: 15 PM CDT documented as of this encounter Miscellaneous Notes * Telephone Encounter - Ashley Mcdonald RN - 06/28/2017 11:37 AM CDT Next 5 appointments (look out 90 days) July 20, 2017 3:00 PM CDT PHYSICAL with Golden [place] [facility] [address] [facility] [address] Routing refill request to provider for review/approval because: Drug [place] [facility] [place] for indicated use - alopecia Ashley Harris RN * Telephone Encounter - Jessika Cano CMA - 06/27/2017 12:51 PM CDT finasteride (PROPECIA) 1 MG tablet 30 tablet 0 04/26/2017 Last Written Prescription Date: 04/26/17 Last Fill Quantity: 30, # refills: 0 Last office visit: 04/17/2016 with prescribing provider: Jose Future Office Visit: Next 5 appointments (look out 90 days) July 20, 2017 3:00 PM CDT PHYSICAL with Golden Garcia MD [facility] [address] [facility] [address] Requested Prescriptions Pending Prescriptions Disp Refills ??? finasteride (PROPECIA) 1 MG tablet [Pharmacy Med Name: FINASTERIDE 1 MG TABLET] 30 tablet 0 Sig: TAKE 1 TABLET BY MOUTH ONCE DAILY Miscellaneous Dermatologic Agents Failed 06/27/2017 10:32 AM Failed - Refill request is not for Imiquimod, 5-Fluorouracil, or Finasteride If Imiquimod, 5-Fluorouracil, or Finasteride, may refill if indicated in progress notes. Passed - Recent (12 mo) or future (30 days) visit within the authorizing provider's specialty Patient had office visit in the last 12 months or has a visit in the next 30 days with authorizing provider or within the authorizing provider's specialty. See Patient Info tab in inbasket, or Choose Columns in Meds & Orders section of the refill encounter. Passed - Patient is 24 mos old or older No flowsheet data found. documented in this encounter Plan of Treatment Not on file documented as of this encounter Visit Diagnoses Diagnosis Alopecia Alopecia, unspecified documented in this encounter Care Teams Lead Software Engineer Relationship Specialty Start Date End Date Golden Garcia MD [address] [place] [address] PCP - General Internal Medicine 04/18/16 Golden Garcia MD [address] [place] [address] PCP - Assigned PCP 03/23/16 05/21/18 Golden Garcia MD [address] [place] [address] Assigned PCP 03/23/16 Karan Mancini MD [address] [place] [address] Assigned Heart and Vascular Provider 06/27/20 07/03/20 Vaughn Johnson MD [address] [place] [address] Assigned Heart and Vascular Provider 07/04/20 12/30/21 Vaughn Johnson MD [address] [place], [place] [address] Assigned Heart and Vascular Provider 06/20/20 06/26/20 documented as of this encounter
--- OUTSIDE RECORDS SUMMARY | 2023-04-10 10:49 | XMS_ITS | Encounter Summary ---
Author Name Unknown Organization [facility] Address [address] [place] [address] Care Team Providers Care Shipping/Receiving Clerk Name Role Phone Golden Garcia MD Primary Care Provider [phone] Golden Garcia MD Unavailable [phone] Encounter Details Date Type Department Care Team (Latest Contact Info) Description 09/25/2022 Travel Social History Tobacco Use Types Packs/Day [...] suspected to have Coronavirus/COVID-19? No / Unsure 09/25/2022 9:48 PM CDT documented as of this encounter Plan of Treatment Not on file documented as of this encounter Visit Diagnoses Not on filedocumented in this encounter Additional Health Concerns Assessment Noted Time PHQ-9 Depression Total Score: 8 10/06/19 21 10:49 AM CDT documented as of this encounter Care Teams Shipping/Receiving Clerk Relationship Specialty Start Date End Date Golden Garcia MD [address] [facility] [address] [place] [address] PCP - General Internal Medicine 04/18/16 Golden Garcia MD [address] [facility] [address] [place] [address] Assigned PCP 03/23/16 documented as of this encounter
--- OUTSIDE RECORDS SUMMARY | 2023-04-10 10:49 | XMS_ITS | Encounter Summary ---
Author Name Unknown Organization [facility] Address [address] [facility] [place] [address] Care Team Providers Care Plate Conditioner Name Role Phone Golden Garcia MD Primary Care Provider Golden Garcia MD Unavailable [phone] Karan Mancini MD Unavailable [phone] Vaughn Johnson MD Unavailable + [phone] Vaughn Johnson MD Unavailable + [phone] Reason for Visit * Reason Comments Medication Refill finasteride Encounter Details Date Type Department Care Team (Late st Contact Info) Description 09/30/[address] [place] [address] Golden Garcia MD [address] [facility] [address] [place], [place] [address] Medication Refill (finasteride) Social History Tobacco Use Types Packs/Day Years [...] encounter Miscellaneous Notes * Telephone Encounter - Jessica Campa RN - 10/02/2018 11:03 AM CDT Routing refill request to provider for review/approval because: Monique given x1 and patient did not follow up, please advise Patient needs to be seen because it has been more than 1 year since last office visit. Requested Prescriptions Pending Prescriptions Disp Refills ??? finasteride (PROPECIA) 1 MG tablet [Pharmacy Med Name: Finasteride Oral Tablet 1 MG] 30 tablet 0 Sig: TAKE ONE TABLET BY MOUTH ONCE DAILY Last Written Prescription Date: 08/01/2018 Last Fill Quantity: 30, # refills: 0 Last office visit: 07/20/2017 with prescribing provider: Jose Future Office Visit: Miscellaneous Dermatologic Agents Failed - 09/30/2018 8:08 PM Failed - Recent (12 mo) or future (30 days) visit within the authorizing provider's specialty Patient had office visit in the last 12 months or has a visit in the next 30 days with authorizing provider or within the authorizing provider's specialty. See Patient Info tab in inbasket, or Choose Columns in Meds & Orders section of the refill encounter. Failed - Refill request is not for Imiquimod, 5-Fluorouracil, or Finasteride If Imiquimod, 5-Fluorouracil, or Finasteride, may refill if indicated in progress notes. Passed - Medication is active on med list Passed - Patient is 24 mos old or older documented in this encounter Plan of Treatment Not on file documented as of this encounter Visit Diagnoses Diagnosis Alopecia Alopecia, unspecified documented in this encounter Care Teams Plate Conditioner Relationship Specialty Start Date End Date Golden Garcia MD [address] [place] [address] PCP - General Internal Medicine 04/18/16 Golden Garcia MD [address] [place] [address] Assigned PCP 03/23/16 Karan Mancini MD [address] [place] [address] Assigned Heart and Vascular Provider 06/27/20 07/03/20 Vaughn Johnson MD [address] [place] [address] Assigned Heart and Vascular Provider 07/04/20 12/30/21 Vaughn Johnson MD [address] [place] [address] Assigned Heart and Vascular Provider 06/20/20 06/26/20 documented as of this encounter
--- OUTSIDE RECORDS SUMMARY | 2023-04-10 10:49 | XMS_ITS | Encounter Summary ---
Author Name Unknown Organization [facility] Address [address] [place] [address] Care Team Providers Care Woodwind Instruments Inspector Name Role Phone Golden Garcia MD Primary Care Provider [phone] Golden Garcia MD Unavailable [phone] Reason for Visit * Reason Comments Medication Refill Encounter Details Date Type Department Care Team (Late st Contact Info) Description 06/20/[address] [place] [address] Golden Garcia MD [address] [facility] [address] [place] [address] Medication Refill Social History Tobacco [...] documented as of this encounter Care Teams Woodwind Instruments Inspector Relationship Specialty Start Date End Date Golden Garcia MD [address] [place] [address] PCP - General Internal Medicine 04/18/16 Golden Garcia MD [address] [place] [address] Assigned PCP 03/23/16 documented as of this encounter
--- OUTSIDE RECORDS SUMMARY | 2023-04-10 10:49 | XMS_ITS | Encounter Summary ---
Author Name Unknown [facility] Address [address] [place] [address] Care Team Providers Care Relocation Commissioner Name Role Phone Golden Garcia MD Primary Care Provider [phone] Golden Garcia MD Unavailable [phone] Encounter Details Date Type Department Care Team (Late st Contact Info) Description 09/15/2022 [facility] Wound Ostomy Clinic [address], [address] [place] [address] Chely Cruz, RN Social History Tobacco Use Types Packs/Day [...] encounter Miscellaneous Notes * Telephone Encounter - Chely Cruz RN - 09/15/2022 3:56 PM CDT [facility] Outpatient Ostomy Clinic Received call from patient 09/15 with voicemail 14:32 stating he is returning call for appointment ostomy marking and 09/26 please with phone number. Call returned, no answer, left voicemail for patient stating an appointment for September 26 for 10AM will be created, check in at [facility], call back for questions. Chely CWLENAN 1st: Vocera Connect, call Chely Cruz or call Group [facility] Nurse (2nd option: leave a voicemail at Dept. Office Number: [phone]. Messages checked occasionally M-F) documented in this encounter Plan of Treatment Not on file documented as of this encounter Visit Diagnoses Not on filedocumented in this encounter Additional Health Concerns Assessment Noted Time PHQ-9 Depression Total Score: 8 10/06/19 21 10:49 AM CDT documented as of this encounter Care Teams Relocation Commissioner Relationship Specialty Start Date End Date Golden Garcia MD [address] [place] [address] PCP - General Internal Medicine 04/18/16 Golden Garcia MD [address] [place] [address] Assigned PCP 03/23/16 documented as of this encounter
--- OUTSIDE RECORDS SUMMARY | 2023-04-10 10:49 | XMS_ITS | Encounter Summary ---
Author Name Unknown Organization [place] Address [address] [place] [address] Care Team Providers Care Value Advisor Name Role Phone Golden Garcia MD Primary Care Provider [phone] Golden Garcia MD Unavailable [phone] Golden Garcia MD Unavailable [phone] Karan Mancini MD Unavailable [phone] Vaughn Johnson MD Unavailable + [phone] Vaughn Johnson MD Unavailable + [phone] Encounter Details Date Type Department Care Team (Late st Contact Info) Description 04/24/2016 [facility] [place] [address] [facility], [address] [place] [phone] Pippa Trinidad, NURSES AIDE Social History Tobacco Use Types Packs/Day Years [...] on filedocumented in this encounter Care Teams Value Advisor Relationship Specialty Start Date End Date Golden Garcia MD [address] [place] [address] PCP - General Internal Medicine 04/18/16 Golden Garcia MD [address] [place] [address] PCP - Assigned PCP 03/23/16 05/21/18 Golden Garcia MD [address] [place] [address] Assigned PCP 03/23/16 Karan Mancini MD [address] [place] [address] Assigned Heart and Vascular Provider 06/27/20 07/03/20 Vaughn Johnson MD [address] [place] [address] Assigned Heart and Vascular Provider 07/04/20 12/30/21 Vaughn Johnson MD [address] [place] [address] Assigned Heart and Vascular Provider 06/20/20 06/26/20 documented as of this encounter
--- NOTE | 2023-04-10 11:00 | CRLHL7_ITS ---
For Patients: As a result of the Century Cures Act, medical imaging exams and procedure reports are released immediately into your electronic medical record. You may view this report before your referring provider. If you have questions, please contact your health care provider. Indication: F/U MESENTERIC THROMBOSIS FROM 10/27/22 POSSIBLE SURGICAL HERNIA Technique: Postcontrast CT abdomen and pelvis. 95 cc Isovue 370 intravenous contrast. Please note that all CT scans at this facility use dose modulation, iterative reconstruction, and/or weight-based dosing when appropriate to reduce radiation dose to as low as reasonably achievable. Comparison: 10/27/2022 CT, 01/17/2023 enema exam Findings: Lung bases are clear. Postoperative changes of sigmoidectomy with primary anastomosis. The anastomosis is intact. No free air. No free fluid. No abscess. The appendix is normal. Interval takedown of the previously noted right lower quadrant ostomy. No splenomegaly. Adrenal glands normal. No hydronephrosis. Pancreas normal. Small layering stone in the gallbladder. Differential perfusion to the periphery of the right hepatic lobe. 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 Collateral vessels are noted in the retroperitoneum. Fat filled hernia defect noted within the mid abdomen measuring 4.8 cm. A few scattered subcentimeter lymph nodes are again noted throughout the abdomen. Degenerative disc disease L5-S1. Impression: Intact primary anastomosis within the left lower quadrant. Interval takedown of the right lower quadrant ostomy. No bowel obstruction or inflammatory change. 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 Collateral vessels are present. No clot present on the current study. Upper abdominal midline hernia containing fat measuring 4.8 cm. Please note that all CT scans at this facility use dose modulation, iterative reconstruction, and/or weight-based dosing when appropriate to reduce radiation dose to as low as reasonably achievable. Dictated by Jose Elias Tavarez MD @ 04/10/2023 12:45:37 PM (Electronically Signed)
== END 2023-04-10 10:33 | disposition home or self-care (01) ==
LOC: CT 10:34
PROVIDERS: Visit Provider Surgery
DX: K55.069 Acute infarction of intestine, part and extent unspecified (principal); K46.9 Unspecified abdominal hernia without obstruction or gangrene
CPT/HCPCS: 74177; Q9967

== ENCOUNTER 2023-04-26 08:23 | Day surgery (SDC) | payer OTHER, SELFPAY ==
[2023-04-26] VITALS (12 sets, daily range): BP systolic 125–168; BP diastolic 70–99; PULSE 61–92; RESP 12–16; TEMP 36.3–37.1; O2SAT 92–96
--- OUTSIDE RECORDS SUMMARY | 2023-04-26 08:27 | XMS_ITS | Encounter Summary ---
Author Name Unknown Organization [facility] Address [address] [place] [address] Care Team Providers Care Senior Materials Analyst Name Role Phone Golden Garcia MD Primary Care Provider [phone] Golden Garcia MD Unavailable [phone] Reason for Visit * Reason Comments Medication Refill Encounter Details Date Type Department Care Team (Late st Contact Info) Description 03/04/[address] [place] [address] Golden Garcia MD [address] [facility] [address] [place] [address] Medication Refill Social History Tobacco [...] documented as of this encounter Care Teams Senior Materials Analyst Relationship Specialty Start Date End Date Golden Garcia MD [address] [place] [address] PCP - General Internal Medicine 04/18/16 Golden Garcia MD [address] [place] [address] Assigned PCP 03/23/16 documented as of this encounter
--- OUTSIDE RECORDS SUMMARY | 2023-04-26 08:27 | XMS_ITS | Encounter Summary ---
Author Name Unknown Organization [facility] Address [address] [place] [address] Care Team Providers Care Early Childhood Associate Teacher Name Role Phone Golden Garcia MD Primary Care Provider [phone] Golden Garcia MD Unavailable Reason for Visit * Reason Comments Travel Clinic Encounter Details Date Type Department Care Team (Late st Contact Info) Description 04/05/2023 4:00 PM MEDICAID BILLER Office Visit [facility] [address] [place] [address] Ashley Adams, NETWORK LIAISON GRIEF COUNSELLOR [address] [place] [address] Travel advice encounter (Primary Dx); [...] Comments Blood Pressure 128/86 04/05/2023 3:58 PM MEDICAID BILLER Pulse 62 04/05/2023 3:58 PM MEDICAID BILLER Temperature 36.4 ??C (97.5 ??F) 04/05/2023 3:58 PM CS T Respiratory Rate 10 04/05/2023 3:58 PM MEDICAID BILLER Oxygen Saturation 95% 04/05/2023 3:58 PM MEDICAID BILLER Inhaled Oxygen Concentration - - Weight 114.8 kg (253 lb) 04/05/2023 3:58 PM MEDICAID BILLER Height 195.6 cm (6' 5) 04/05/2023 3:58 PM MEDICAID BILLER Body Mass Index 30 04/05/2023 3:58 PM MEDICAID BILLER documented in this encounter Patient Instructions * Patient Instructions* Ashley Adams, AKIRA GRIEF COUNSELLOR - 04/05/2023 4:00 PM MEDICAID BILLER Thank you [facility] the [facility] : [phone] Today April 05, 2023 you received the [...] (BE PREPAREDTO WAIT, ) or at designated [facility]. If you are receiving the Rabies vaccines series, it is important that you follow the exact scheduleordered. Pre-travel We recommend that you purchase Medical Evacuation Insurance prior to your departure. Https://wwwnc.cdc.gov/travel/page/insurance [place] your travel plans with the Department of [employer] through STEP ( Smart Traveler EnrollmentProgram ) https://step.[employer].gov. STEP is a free service to allow [...] for 20 seconds. Use an alcohol-based hand apprentice pattern maker with at least 60% alcohol if soap [...] trip Post-travel illness: Contact your provider or [facility] if you develop a fever, rash, cough, diarrhea or other symptoms for up to 1 year after travel. Inform your healthcare provider when and where you traveled to. Please call the [facility] with any questions [phone] Or send your provider a 'My Chart' note. CAID BILLER documented in this encounter Progress Notes * Bryan Ashleynorberto Kang, AKIRA GRIEF COUNSELLOR - 04/05/2023 4:00 PM CST Nurse Note ( Pre-Travel Consult) Itinerary: [facility] Departure Date: 05/13 Return Date: 05/28 Length [...] Patient itinerary : will be in the [facility] then [facility] then flight to [facility] ( [facility] ) region of [facility] which risk for Malaria, Yellow Fever, Rabies, food borne illnesses, and motor vehicle accidents. exposure. Patient's activities will include sightseeing and safari/game ricketts. Patient's country of is [facility] Special medical concerns: partial colon resection approx [...] precautions, allergies, risks discussed. Patient expressed understanding. Urdu Encephalitis: Not indicated Meningococcus: Declined Not concerned [...] decision making as detailed above. Ashley Adams GRIEF COUNSELLOR Certificate in Travel Health CAID BILLER documented in this encounter Nursing Notes * [...] any adverse reactions. Screening performed by Magalis Conway on 04/05/2023 at 4:40 PM. CAID BILLER documented in this encounter Miscellaneous Notes * Result Encounter Note - Ashley Adams APRN CNP - 04/05/2023 4:00 PM MEDICAID BILLER Priscila Abraham Your blood test confirms that [...] a safe trip Ashley Adams CNP (Lori) [facility] Certificate in Travel Health CAID BILLER documented in this encounter Plan of Treatment Not on file documented as of this encounter Procedures Procedure Name Priority Date/Time Associated Diagnosis Comments VARICELLA ZOSTER VIRUS ANTIBODY IGG Routine 04/05/2023 4:50 PM MEDICAID BILLER Immunity status testing MUMPS IMMUNE STATUS, IGG Routine 04/05/2023 4:50 PM MEDICAID BILLER Immunity status testing RUBEOLA ANTIBODY IGG Routine 04/05/2023 4:50 PM MEDICAID BILLER Immunity status testing RUBELLA ANTIBODY IGG Routine 04/05/2023 4:50 PM MEDICAID BILLER Immunity status testing ABO AND RH Routine 04/05/2023 4:50 PM MEDICAID BILLER Travel advice encounter documented in this encounter Results * Rubeola Antibody IgG (04/05/2023 4:50 PM MEDICAID BILLER) Rubeola (Measles) Neela IgG Instrument Value >300.0 <13.5 AU/mL 04/09/2023 9:55 AM MEDICAID BILLER SPECIALTY CORE/PROT/END O Rubeola (Measles) Antibody IgG Positive 04/09/2023 9:55 AM MEDICAID BILLER SPECIALTY CORE/PROT/END O Comment:Suggests previous ex posure or immunization and probable immunity. Blood BLOOD SPECIMEN / Unknown Venipuncture / Unknown 04/05/2023 4:50 PM MEDICAID BILLER 04/05/2023 4:50 PM MEDICAID BILLER Ashley Adams APRN [facility] - BLOOD OR DERABLES Performing Organization Address City/[facility]/ZIP Co de Phone Number UM SPECIALTY CORE/PROT/ENDO Specialty Core/Prot/Endo [address] [facility] [address] [facility], [address] [phone] * Mumps Immune Status, IgG (04/05/2023 4:50 PM MEDICAID BILLER) Mumps Neela IgG Instrument Value 7.5 <9.0 AU/mL 04/09/2023 9:59 AM MEDICAID BILLER SPECIALTY CORE/PROT/EN DO Mumps Antibody IgG Negative, suggests no immunologic exposure. 04/09/2023 9:59 AM MEDICAID BILLER SPECIALTY CORE/PROT/EN DO Blood BLOOD SPECIMEN / Unknown Venipuncture / Unknown 04/05/2023 4:50 PM MEDICAID BILLER 04/05/2023 4:50 PM MEDICAID BILLER Ashley Adams APRN [facility] - BLOOD OR DERABLES Performing Organization Address City/[facility]/ZIP Co de Phone Number SPECIALTY CORE/PROT/ENDO Specialty Core/Prot/Endo [address] [facility], [address] [address], [facility] [phone] * Rubella Antibody IgG (04/05/2023 4:50 PM MEDICAID BILLER) Rubella Neela IgG Instrument Value 1.02 <0.90 Index 04/09/2023 10:01 AM MEDICAID BILLER SPECIALTY CORE/PROT/END O Rubella Antibody IgG Positive 04/09/2023 10:01 AM MEDICAID BILLER SPECIALTY CORE/PROT/END O Comment:Suggests previous ex posure or immunization and probable immunity. Blood BLOOD SPECIMEN / Unknown Venipuncture / Unknown 04/05/2023 4:50 PM MEDICAID BILLER 04/05/2023 4:50 PM MEDICAID BILLER Ashley Adams APRN GRIEF COUNSELLOR LAB - BLOOD OR DERABLES UM SPECIALTY CORE/PROT/ENDO UM Specialty Core/Prot/Endo [address] [facility] [address] Building, [address] [phone] * ABO and Rh (04/05/2023 4:50 PM MEDICAID BILLER) ABO/RH(D) A POS 04/05/2023 4:47 PM MEDICAID BILLER U BLOOD BANK SPECIMEN EXPIRATION DATE [id number] 04/05/2023 4:47 PM MEDICAID BILLER BLOOD BANK Blood BLOOD SPECIMEN / Unknown Venipuncture / Unknown 04/05/2023 4:50 PM MEDICAID BILLER 04/05/2023 4:50 PM MEDICAID BILLER Ashley Adams APRN GRIEF COUNSELLOR LAB - BLOOD BA NK TEST ORDER Performing Organization Address City/[facility]/ZIP Co de Phone Number BLOOD BANK [address] [place] [address], [place] * Varicella Zoster Virus Antibody IgG (04/05/2023 4:50 PM MEDICAID BILLER) VZV Neela IgG Instrument Value 2,125.0 <135.0 Index 04/09/2023 9:51 AM MEDICAID BILLER SPECIALTY CORE/PROT/END O Varicella Zoster Antibody IgG Positive 04/09/2023 9:51 AM MEDICAID BILLER SPECIALTY CORE/PROT/END O Comment:Suggests previous ex posure or immunization and probable immunity. Blood BLOOD SPECIMEN / Unknown Venipuncture / Unknown 04/05/2023 4:50 PM MEDICAID BILLER 04/05/2023 4:50 PM MEDICAID BILLER Ashley Adams APRN GRIEF COUNSELLOR LAB - BLOOD OR DERABLES UM SPECIALTY CORE/PROT/ENDO UM Specialty Core/Prot/Endo [address] [facility] [address] Building, [address] [phone] documented in this encounter Visit Diagnoses Diagnosis Travel advice encounter- Primary Immunity status testing Antibody response examination documented in this encounter Additional Health Concerns Assessment Noted Time PHQ-9 Depression Total Score: 8 10/06/19 21 10:49 AM CDT documented as of this encounter Care Teams Early Childhood Associate Teacher Relationship Specialty Start Date End Date Golden Garcia MD [address] [place] [id number] PCP - General Internal Medicine 04/18/16 Golden Garcia MD [address] [place] [id number] Assigned PCP 03/23/16 documented as of this encounter
--- OUTSIDE RECORDS SUMMARY | 2023-04-26 08:27 | XMS_ITS | Encounter Summary ---
Author Name Unknown Organization [facility] Address [address] [place] [address] Care Team Providers Care Dispensing Optician Apprentice Name Role Phone Golden Garcia MD Primary Care Provider [phone] Golden Garcia MD Unavailable [phone] Encounter Details Date Type Department Care [...] documented as of this encounter Care Teams Dispensing Optician Apprentice Relationship Specialty Start Date End Date Golden Garcia MD [address] [place] [id number] PCP - General Internal Medicine 04/18/16 Golden Garcia MD [address] [place] [id number] Assigned PCP 03/23/16 documented as of this encounter
--- OUTSIDE RECORDS SUMMARY | 2023-04-26 08:27 | XMS_ITS | Encounter Summary ---
Author Name Unknown Organization [facility] Address [address] [place] [address] Care Team Providers Care Lead Welder Name Role Phone Golden Garcia MD Primary Care Provider [phone] Golden Garcia MD Unavailable [phone] Encounter Details Date Type Department Care Team (Latest Contact Info) Description 04/25/2023 Travel Social History Tobacco Use Types Packs/Day [...] documented as of this encounter Care Teams Lead Welder Relationship Specialty Start Date End Date Golden Garcia MD [address] [place] [id number] PCP - General Internal Medicine 04/18/16 Golden Garcia MD [address] [place] [address] Assigned PCP 03/23/16 documented as of this encounter
--- OUTSIDE RECORDS SUMMARY | 2023-04-26 08:27 | XMS_ITS | Referral Summary ---
Author Name Unknown [facility] Address [address] [place] [address] Care Team Providers Care Dry Wall Installer Name Role Phone Golden Garcia MD Primary Care Provider [phone] Golden Garcia MD Unavailable [phone] Encounters Date Type Department Care Team Description 04/25/2023 Travel 04/25/2023 1:30 PM BUTCHER ASSISTANT Office Visit [address], [address] [place] [address] Simon Lewis PA-C Pre-op exam (Primary Dx); Ventral hernia without obstruction or gangrene; Mesenteric vein thrombosis (H24) 04/09/[address] [facility] [address] [facility] [address] [place] [address] Ashley Adams APRN WOOD TECHNOLOGIST 04/05/2023 Travel 04/05/2023 4:00 PM BUTCHER ASSISTANT Office Visit [facility] [address] [facility] [address] [place] [address] Ashley Adams, AKIRA WOOD TECHNOLOGIST Travel advice encounter (Primary Dx); Immunity status testing 04/04/2023 Travel 03/21/2023 Travel 03/04/[address], [address] [place] [phone] Golden Garcia MD Medication Refill from Last 3 Months Allergies Active Allergy Reactions Criticality Noted Date Comments Penicillins Hives 03/04/2013 Medications Medication Sig Dispensed Refills Start Date End Date Status apixaban ANTICOAGULANT (ELIQUIS) 5 MG tablet 0 Active escitalopram (LEXAPRO) 10 MG tabletIndications:D epression with anxiety Take 1 tablet (10 mg) by mouth daily 90 tablet 3 01/23/2023 Active finasteride (PROPECIA) 1 MG tabletIndications:A lopecia TAKE 1 TABLET BY MOUTH DAILY 90 tablet 0 03/05/2023 Active atovaquone-proguani l (MALARONE) 250-100 MG tabletIndications:T kameron advice encounter Take 1 tablet by mouth daily Start 2 days before travel and continue 7 days after return. 26 tablet 0 04/05/2023 4 Discontinued(T herapy completed (No AVS)) azithromycin (ZITHROMAX) 500 MG tabletIndications:T kameron advice encounter Take 1 tablet (500 mg) by mouth daily for 3 doses Take 1 tablet a day for up to 3 days for severe diarrhea 3 tablet 0 04/05/2023 4 Active Problems Problem Noted Date Diagnosed Date [...] Sign Reading Time Taken Comments Blood Pressure 124/81 04/25/2023 1:20 PM BUTCHER ASSISTANT Pulse 74 04/25/2023 1:20 PM BUTCHER ASSISTANT Temperature 36.6 ??C (97.9 ??F) 04/25/2023 1:20 PM CS T Respiratory Rate 20 04/25/2023 1:20 PM BUTCHER ASSISTANT Oxygen Saturation 98% 04/25/2023 1:20 PM BUTCHER ASSISTANT Inhaled Oxygen Concentration - - Weight 114.9 kg (253 lb 3.2 oz) 04/25/2023 1:20 PM BUTCHER ASSISTANT Height 196.2 cm (6' 5.25) 04/25/2023 1:20 PM CS T Body Mass Index 29.83 04/25/2023 1:20 PM BUTCHER ASSISTANT Plan of Treatment Not on file Procedures Procedure Name Priority Date/Time Associated Diagnosis Comments ABO AND RH Routine 04/05/2023 4:50 PM BUTCHER ASSISTANT Travel advice encounter RUBEOLA ANTIBODY IGG Routine 04/05/2023 4:50 PM BUTCHER ASSISTANT Immunity status testing MUMPS IMMUNE STATUS, IGG Routine 04/05/2023 4:50 PM BUTCHER ASSISTANT Immunity status testing RUBELLA ANTIBODY IGG Routine 04/05/2023 4:50 PM BUTCHER ASSISTANT Immunity status testing VARICELLA ZOSTER VIRUS ANTIBODY IGG Routine 04/05/2023 4:50 PM BUTCHER ASSISTANT Immunity status testing from Last 3 Months Results * Varicella Zoster Virus Antibody IgG (04/05/2023 4:50 PM BUTCHER ASSISTANT) VZV Neela IgG Instrument Value 2,125.0 <135.0 Index 04/09/2023 9:51 AM BUTCHER ASSISTANT UM SPECIALTY CORE/PROT/END O Varicella Zoster Antibody IgG Positive 04/09/2023 9:51 AM BUTCHER ASSISTANT SPECIALTY CORE/PROT/END O Comment:Suggests previous ex posure or immunization and probable immunity. Blood BLOOD SPECIMEN / Unknown Venipuncture / Unknown 04/05/2023 4:50 PM BUTCHER ASSISTANT 04/05/2023 4:50 PM BUTCHER ASSISTANT Ashley Adams REFERENCE SERVICES HEAD WOOD TECHNOLOGIST LAB - BLOOD OR DERABLES UM SPECIALTY CORE/PROT/ENDO UM Specialty Core/Prot/Endo [address] [facility] [address], [address] [place] [address] * Mumps Immune Status, IgG (04/05/2023 4:50 PM BUTCHER ASSISTANT) Mumps Neela IgG Instrument Value 7.5 <9.0 AU/mL 04/09/2023 9:59 AM BUTCHER ASSISTANT SPECIALTY CORE/PROT/EN DO Mumps Antibody IgG Negative, suggests no immunologic exposure. 04/09/2023 9:59 AM BUTCHER ASSISTANT SPECIALTY CORE/PROT/EN DO Blood BLOOD SPECIMEN / Unknown Venipuncture / Unknown 04/05/2023 4:50 PM BUTCHER ASSISTANT 04/05/2023 4:50 PM BUTCHER ASSISTANT Ashley Adams APRN [facility] LAB - BLOOD OR DERABLES Performing Organization Address City/[facility] Co de Phone Number SPECIALTY CORE/PROT/ENDO UM Specialty Core/Prot/Endo [address] [facility], [address] [phone] * Rubeola Antibody IgG (04/05/2023 4:50 PM BUTCHER ASSISTANT) Rubeola (Measles) Neela IgG Instrument Value >300.0 <13.5 AU/mL 04/09/2023 9:55 AM BUTCHER ASSISTANT SPECIALTY CORE/PROT/END O Rubeola (Measles) Antibody IgG Positive 04/09/2023 9:55 AM BUTCHER ASSISTANT SPECIALTY CORE/PROT/END O Comment:Suggests previous ex posure or immunization and probable immunity. Blood BLOOD SPECIMEN / Unknown Venipuncture / Unknown 04/05/2023 4:50 PM BUTCHER ASSISTANT 04/05/2023 4:50 PM BUTCHER ASSISTANT Ashley Adams APRN [facility] LAB - BLOOD OR DERABLES Performing Organization Address City/[facility] Co de Phone Number SPECIALTY CORE/PROT/ENDO Specialty Core/Prot/Endo [address] [facility], [address] [phone] * Rubella Antibody IgG (04/05/2023 4:50 PM BUTCHER ASSISTANT) Rubella Neela IgG Instrument Value 1.02 <0.90 Index 04/09/2023 10:01 AM BUTCHER ASSISTANT SPECIALTY CORE/PROT/END O Rubella Antibody IgG Positive 04/09/2023 10:01 AM BUTCHER ASSISTANT SPECIALTY CORE/PROT/END O Comment:Suggests previous ex posure or immunization and probable immunity. Blood BLOOD SPECIMEN / Unknown Venipuncture / Unknown 04/05/2023 4:50 PM BUTCHER ASSISTANT 04/05/2023 4:50 PM BUTCHER ASSISTANT Ashley Adams APRN WOOD TECHNOLOGIST LAB - BLOOD OR DERABLES UM SPECIALTY CORE/PROT/ENDO UM Specialty Core/Prot/Endo [address] [facility] [address] [facility], [address] [place] [address] * ABO and Rh (04/05/2023 4:50 PM BUTCHER ASSISTANT) ABO/RH(D) A POS 04/05/2023 4:47 PM BUTCHER ASSISTANT [facility] BLOOD BANK SPECIMEN EXPIRATION DATE [id number] 04/05/2023 4:47 PM BUTCHER ASSISTANT [facility] BLOOD BANK Blood BLOOD SPECIMEN / Unknown Venipuncture / Unknown 04/05/2023 4:50 PM BUTCHER ASSISTANT 04/05/2023 4:50 PM BUTCHER ASSISTANT Ashley Adams APRN WOOD TECHNOLOGIST LAB - BLOOD BA NK TEST ORDER Performing Organization Address City/[facility]/ZIP Co de Phone Number [facility] BLOOD BANK [address] [place] [address] from Last 3 Months Care Teams Dry Wall Installer Relationship Specialty Start Date End Date Golden Garcia MD [address] [facility] [address] [place], [place] [address] PCP - General Internal Medicine 04/18/16 Golden Garcia MD [address] [place], [place] [address] Assigned PCP 03/23/16
--- OUTSIDE RECORDS SUMMARY | 2023-04-26 08:27 | XMS_ITS | Encounter Summary ---
Author Name Unknown Organization [place] Address [address] [facility] [place] [address] Care Team Providers Care Aquatic Performer Name Role Phone Golden Garcia MD Primary Care Provider [phone] Golden Garcia MD Unavailable [phone] Reason for Visit * Reason Comments Pre-Op Exam Patient is here for a preoperative exam for hernia repair. Encounter Details Date Type Department Care Team (Late st Contact Info) Description 04/25/2023 1:30 PM LANGUAGE PATH Office Visit [address], [address] [place] [phone] Simon Hanna PA-C [address] [facility] [address] [place], [place] [id number] Pre-op exam (Primary Dx); Ventral hernia without obstruction or gangrene; Mesenteric vein thrombosis (H24) Social History Tobacco Use Types Packs/Day Years [...] Comments Blood Pressure 124/81 04/25/2023 1:20 PM LANGUAGE PATH Pulse 74 04/25/2023 1:20 PM LANGUAGE PATH Temperature 36.6 ??C (97.9 ??F) 04/25/2023 1:20 PM CS T Respiratory Rate 20 04/25/2023 1:20 PM LANGUAGE PATH Oxygen Saturation 98% 04/25/2023 1:20 PM LANGUAGE PATH Inhaled Oxygen Concentration - - Weight 114.9 kg (253 lb 3.2 oz) 04/25/2023 1:20 PM LANGUAGE PATH Height 196.2 cm (6' 5.25) 04/25/2023 1:20 PM CS T Body Mass Index 29.83 04/25/2023 1:20 PM LANGUAGE PATH documented in this encounter Progress Notes * Simon Hanna PA-C - 04/25/2023 1:30 PM CST Preoperative Evaluation [address], [address] [facility] [address] Primary Provider: Golden Garcia Pre-op Performing Provider: SIMON HANNA Apr 25, 2023 Jarad is a 52 year old, presenting for the following: Pre-Op Exam (Patient is here for a preoperative exam for hernia repair. ) 04/25/2023 1:19 PM Additional Questions Roomed by Pablo RODRIGUEZ Surgical Information Surgery/Procedure: Hernia Repair Surgery Location: [facility] Surgeon: Ashley Mckeon Dr. Surgery Date: 04/26/2023 Time of Surgery: 10:20 AM Where patient plans to recover: At home with family Fax number for surgical facility: [phone] Assessment & Plan The proposed surgical procedure is considered INTERMEDIATE risk. Pre-op exam Ventral hernia without obstruction or gangrene Mesenteric vein thrombosis (H24) Cleared for surgery tomorrow without further intervention. Reviewed EKG and blood work from January which is sufficient. Vitally stable. Physical exam unremarkable besides hernia present. No NSAIDs/vitamins leading up to procedure. Already holding Eliquis which she can resume postoperatively. Continue all other medications without modification. Will send H&P to surgical team. - No identified additional risk factors other than previously addressed Recommendation APPROVAL GIVEN to proceed with proposed procedure pending review of diagnostic evaluation. 20 minutes spent by me on the date of the encounter doing chart review, review of test results, interpretation of tests, patient visit, and documentation Subjective HPI related to upcoming procedure: Here today for preoperative evaluation for hernia repair scheduled for tomorrow 04/26/2023 at [facility]. Overall he is feeling well. No chest pain, shortness of breath, heart racing, or leg swelling. No history of heart attack or stroke. Does have a history of mesenteric vein thrombosis. Has completed 6 months of anticoagulation with Eliquis. Plans to continue this medication until he sees his oncology team upcoming. Has been holdingat least 2 days in anticipation of his procedure. Completed pre-op in January with PCP. Labs, EKG reviewed. 04/25/2023 9:40 AM Preop Questions 1. Have you ever [...] have previous history of blood clots? YES 8. Do you or does anyone in [...] 17. Are you allergic to latex? No Health Care Directive Patient does not have a Health Care Directive or Living Will: Preoperative Review of LINE CONSTRUCTION SUPERINTENDENT LINE CONSTRUCTION SUPERINTENDENT reviewed - no record of controlled substances prescribed. 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 Provider to review and confirm. Alopecia 03/16/2013 Priority: Medium Problem list name updated by automated process. Provider to review Past Medical History: Diagnosis Date Major depression Past Surgical History: Procedure Laterality Date NO HISTORY OF SURGERY 03/04/13 derm pyloric stenosis Current Outpatient Medications Medication Sig Dispense Refill escitalopram (LEXAPRO) 10 MG tablet Take 1 tablet (10 mg) by mouth daily 90 tablet 3 finasteride (PROPECIA) 1 MG tablet TAKE 1 TABLET BY MOUTH DAILY 90 tablet 0 apixaban ANTICOAGULANT (ELIQUIS) 5 MG tablet (Patient not taking: Reported on 04/25/2023) Allergies Allergen Reactions Penicillins Hives Social History Tobacco Use Smoking status: Never Smokeless tobacco: Former Quit date: 02/16/2013 Substance Use Topics Alcohol use: No Comment: Sober since 2006 Family History Problem Relation Age of Onset Coronary Artery Disease Father Hyperlipidemia Father History Drug Use No Review of Systems Review of Systems Constitutional, neuro, ENT, endocrine, pulmonary, cardiac, gastrointestinal, genitourinary, musculoskeletal, integument and psychiatric systems are negative, except as otherwise noted. Objective BP 124/81 (BP Location: Left arm, Patient Position: Sitting, Cuff Size: Adult Large) Pulse 74 Temp 97.9 ??F (36.6 ??C) (Temporal) Resp 20 Ht 1.962 m (6' 5.25) Wt 114.9 kg (253 lb 3.2 oz) SpO2 98% BMI 29.83 kg/m?? Estimated body mass index is 29.83 kg/m?? as calculated from the following: Height as of this encounter: 1.962 m (6' 5.25). Weight as of this encounter: 114.9 kg (253 lb 3.2 oz). Physical Exam GENERAL: alert and no distress EYES: Eyes grossly normal to inspection, PERRL and conjunctivae and sclerae normal HENT: ear canals and TM's normal, nose and mouth without ulcers or lesions NECK: no adenopathy, no asymmetry, masses, or scars RESP: lungs clear to auscultation - no rales, rhonchi or wheezes CV: regular rate and rhythm, normal S1 S2, no S3 or S4, no murmur, click or rub, no peripheral edema ABDOMEN: soft, nontender, no hepatosplenomegaly. Ventral/incisional hernia present. Not incarcerated. MS: no gross musculoskeletal defects noted, no edema SKIN: no suspicious lesions or rashes NEURO: Normal strength and tone, mentation intact and speech normal PSYCH: mentation appears normal, affect normal/bright Recent Labs Lab Test 01/23/23 0932 HGB 16.2 POTASSIUM 4.8 CR 1.24* A1C 6.1* Diagnostics No additional lab studies needed at this time. No EKG this visit, completed in the last 90 days. Revised Cardiac Risk Index (RCRI) The patient has the following serious cardiovascular risks for perioperative complications: - No serious cardiac risks = 0 points RCRI Interpretation: 0 points: Class I (very low risk - 0.4% complication rate) The likelihood of other entities in the differential is insufficient to justify any further testingfor them at this time. This was explained to the patient. The patient was advised that persistent or worsening symptoms would require further evaluation. Patient advised to call the office and if unable to reach to go to the emergency room if they develop any new or worsening symptoms. Expressed und erstanding and agreement with above stated plan. Signed Electronically by: Simon Hanna PA-C Copy of this evaluation report is provided to requesting physician. UAGE PATH documented in this encounter Plan of Treatment Not on file documented as of this encounter Visit Diagnoses Diagnosis Pre-op exam- Primary Preoperative examination, unspecified Ventral hernia without obstruction or gangrene Ventral hernia, unspecified, without mention of obstruction or gangrene Mesenteric vein thrombosis (H24) Acute vascular insufficiency of intestine documented in this encounter Additional Health Concerns Assessment Noted Time PHQ-9 Depression Total Score: 8 10/06/19 21 10:49 AM CDT documented as of this encounter Care Teams Aquatic Performer Relationship Specialty Start Date End Date Golden Garcia MD [address] [place] [address] PCP - General Internal Medicine 04/18/16 Golden Garcia MD [address] [place] [address] Assigned PCP 03/23/16 documented as of this encounter
--- OUTSIDE RECORDS SUMMARY | 2023-04-26 08:27 | XMS_ITS | Encounter Summary ---
Author Name Unknown Organization [place] Address [address] [facility] [place] [address] Care Team Providers Care It Consulting Manager Name Role Phone Golden Garcia MD Primary Care Provider [phone] Golden Garcia MD Unavailable [phone] Encounter Details Date Type Department Care Team (Late st Contact Info) Description 04/09/2023 Orders Only [facility] [address] [place] [address] Ashley Adams, OFFICE COPY SELECTOR CNC OPERATOR PROGRAMMER [address] [place] [address] Social History Tobacco Use Types [...] documented as of this encounter Care Teams It Consulting Manager Relationship Specialty Start Date End Date Golden Garcia MD [address] [place] [address] PCP - General Internal Medicine 04/18/16 Golden Garcia MD [address] [place] [address] Assigned PCP 03/23/16 documented as of this encounter
--- OUTSIDE RECORDS SUMMARY | 2023-04-26 08:27 | XMS_ITS | Encounter Summary ---
Author Name Unknown Organization [place] Address [address] [place] [address] Care Team Providers Care Executive Relations Specialist Name Role Phone Golden Garcia MD Primary Care Provider [phone] Golden Garcia MD Unavailable [phone] Encounter Details Date Type Department Care [...] documented as of this encounter Care Teams Executive Relations Specialist Relationship Specialty Start Date End Date Golden Garcia MD [address] [place] [id number] PCP - General Internal Medicine 04/18/16 Golden Garcia MD [address] [place] [address] Assigned PCP 03/23/16 documented as of this encounter
--- OUTSIDE RECORDS SUMMARY | 2023-04-26 08:27 | XMS_ITS | Encounter Summary ---
Author Name Unknown Organization [place] Address [address] [place] [address] Care Team Providers Care Diesel Fleet Mechanic Name Role Phone Golden Garcia MD Primary Care Provider [phone] Golden Garcia MD Unavailable [phone] Encounter Details Date Type Department Care [...] documented as of this encounter Care Teams Diesel Fleet Mechanic Relationship Specialty Start Date End Date Golden Garcia MD [address] [place] [id number] PCP - General Internal Medicine 04/18/16 Golden Garcia MD [address] [place] [address] Assigned PCP 03/23/16 documented as of this encounter
--- OUTSIDE RECORDS SUMMARY | 2023-04-26 08:27 | XMS_ITS | Encounter Summary ---
Author Name Unknown Organization [place] Address [address] [place] [address] Care Team Providers Care Pest Controller Assistant Name Role Phone Golden Garcia MD Primary Care Provider [phone] Golden Garcia MD Unavailable [phone] Encounter Details Date Type Department Care [...] documented as of this encounter Care Teams Pest Controller Assistant Relationship Specialty Start Date End Date Golden Garcia MD [address] [place] [id number] PCP - General Internal Medicine 04/18/16 Golden Garcia MD [address] [place] [address] Assigned PCP 03/23/16 documented as of this encounter
--- OUTSIDE RECORDS SUMMARY | 2023-04-26 08:27 | XMS_ITS | Clinical Summary ---
Author Name Unknown Organization [place] Address [address] [place] [address] Care Team Providers Care Core Java Software Engineer Name Role Phone Golden Garcia MD Primary Care Provider [phone] Golden Garcia MD Unavailable [phone] Allergies Active Allergy Reactions Criticality Noted [...] Active atovaquone-proguani l (MALARONE) 250-100 MG tabletIndications:T ravel advice encounter Take 1 tablet by mouth daily Start 2 days before travel and continue 7 days after return. 26 tablet 0 04/05/2023 4 Discontinued(T herapy completed (No AVS)) azithromycin (ZITHROMAX) 500 MG tabletIndications:T ravel advice encounter Take 1 tablet (500 mg) [...] Date Type Department Care Team Description 04/25/2023 1:30 PM SHIPBUILDING DRAFTSPERSON Office Visit [address], [address] [place] [address] Simon Lewis PA-C Pre-op exam (Primary Dx); Ventral hernia without obstruction or gangrene; Mesenteric vein thrombosis (H24) 04/25/2023 Travel 04/09/2023 Orders Only [facility] [address] [facility] [address] [place] [address] Ashley Adams APRN PARTS DATA WRITER 04/05/2023 4:00 PM SHIPBUILDING DRAFTSPERSON Office Visit [facility] [address] [facility] [address] [place] [address] Ashley Adams, CLINICAL BUSINESS ANALYST PARTS DATA WRITER Travel advice encounter (Primary Dx); Immunity status testing 04/05/2023 Travel 04/04/2023 Travel 03/21/2023 Travel 03/04/[address], [address] [place] [address] Golden Garcia MD Medication Refill from Last 3 Months Immunizations Name Administration [...] Comments Blood Pressure 124/81 04/25/2023 1:20 PM SHIPBUILDING DRAFTSPERSON Pulse 74 04/25/2023 1:20 PM SHIPBUILDING DRAFTSPERSON Temperature 36.6 ??C (97.9 ??F) 04/25/2023 1:20 PM CS T Respiratory Rate 20 04/25/2023 1:20 PM SHIPBUILDING DRAFTSPERSON Oxygen Saturation 98% 04/25/2023 1:20 PM SHIPBUILDING DRAFTSPERSON Inhaled Oxygen Concentration - - Weight 114.9 kg (253 lb 3.2 oz) 04/25/2023 1:20 PM SHIPBUILDING DRAFTSPERSON Height 196.2 cm (6' 5.25) 04/25/2023 1:20 PM CS T Body Mass Index 29.83 04/25/2023 1:20 PM SHIPBUILDING DRAFTSPERSON Plan of Treatment Health Maintenance Due Date Last Done Comments CT COLONOGRAPHY 1972 FIT 1972 FLEX SIG 1972 sDNA (Cologuard) 1972 COLONOSCOPY 1982 COLORECTAL CANCER SCREENING 1982 YEARLY PREVENTIVE VISIT 05/17/2021 05/18/19, 07/20/2017, 04/17/2016 ZOSTER IMMUNIZATION (1 of 2) 2022 HEPATITIS B IMMUNIZATION (2 of 3 - Hep B Twinrix 3-dose series) 05/03/2023 04/05/2023 GLUCOSE 05/18/2023 05/17/2020, 07/20/2017 ANNUAL REVIEW OF HM ORDERS 01/24/2024 01/23/2023 [...] ABO AND RH Routine 04/05/2023 4:50 PM SHIPBUILDING DRAFTSPERSON Travel advice encounter RUBEOLA ANTIBODY IGG Routine 04/05/2023 4:50 PM SHIPBUILDING DRAFTSPERSON Immunity status testing MUMPS IMMUNE STATUS, IGG Routine 04/05/2023 4:50 PM SHIPBUILDING DRAFTSPERSON Immunity status testing RUBELLA ANTIBODY IGG Routine 04/05/2023 4:50 PM SHIPBUILDING DRAFTSPERSON Immunity status testing VARICELLA ZOSTER VIRUS ANTIBODY IGG Routine 04/05/2023 4:50 PM SHIPBUILDING DRAFTSPERSON Immunity status testing from Last 3 Months Results * Varicella Zoster Virus Antibody IgG (04/05/2023 4:50 PM SHIPBUILDING DRAFTSPERSON) VZV Neela IgG Instrument Value 2,125.0 <135.0 Index 04/09/2023 9:51 AM SHIPBUILDING DRAFTSPERSON SPECIALTY CORE/PROT/END O Varicella Zoster Antibody IgG Positive 04/09/2023 9:51 AM SHIPBUILDING DRAFTSPERSON SPECIALTY CORE/PROT/END O Comment:Suggests previous ex posure or immunization and probable immunity. Blood BLOOD SPECIMEN / Unknown Venipuncture / Unknown 04/05/2023 4:50 PM SHIPBUILDING DRAFTSPERSON 04/05/2023 4:50 PM SHIPBUILDING DRAFTSPERSON Ashley Adams CLINICAL BUSINESS ANALYST PARTS DATA WRITER LAB - BLOOD OR DERABLES UM SPECIALTY CORE/PROT/ENDO UM Specialty Core/Prot/Endo [address] [facility] [address], [address] [place] [address] * Mumps Immune Status, IgG (04/05/2023 4:50 PM SHIPBUILDING DRAFTSPERSON) Mumps Neela IgG Instrument Value 7.5 <9.0 AU/mL 04/09/2023 9:59 AM SHIPBUILDING DRAFTSPERSON SPECIALTY CORE/PROT/EN DO Mumps Antibody IgG Negative, suggests no immunologic exposure. 04/09/2023 9:59 AM SHIPBUILDING DRAFTSPERSON SPECIALTY CORE/PROT/EN DO Blood BLOOD SPECIMEN / Unknown Venipuncture / Unknown 04/05/2023 4:50 PM SHIPBUILDING DRAFTSPERSON 04/05/2023 4:50 PM SHIPBUILDING DRAFTSPERSON Ashley Adams APRN [facility] LAB - BLOOD OR DERABLES Performing Organization Address City/[facility] [[email or web address]] Co de Phone Number SPECIALTY CORE/PROT/ENDO UM Specialty Core/Prot/Endo [address] [facility] [place] [place], [address] [phone] * Rubeola Antibody IgG (04/05/2023 4:50 PM SHIPBUILDING DRAFTSPERSON) Rubeola (Measles) Neela IgG Instrument Value >300.0 <13.5 AU/mL 04/09/2023 9:55 AM SHIPBUILDING DRAFTSPERSON SPECIALTY CORE/PROT/END O Rubeola (Measles) Antibody IgG Positive 04/09/2023 9:55 AM SHIPBUILDING DRAFTSPERSON SPECIALTY CORE/PROT/END O Comment:Suggests previous ex posure or immunization and probable immunity. Blood BLOOD SPECIMEN / Unknown Venipuncture / Unknown 04/05/2023 4:50 PM SHIPBUILDING DRAFTSPERSON 04/05/2023 4:50 PM SHIPBUILDING DRAFTSPERSON Ashley Adams APRN [facility] LAB - BLOOD OR DERABLES Performing Organization Address City/[facility] [[email or web address]] Co de Phone Number SPECIALTY CORE/PROT/ENDO Specialty Core/Prot/Endo [address] [facility] [place], [address] [phone] * Rubella Antibody IgG (04/05/2023 4:50 PM SHIPBUILDING DRAFTSPERSON) Rubella Neela IgG Instrument Value 1.02 <0.90 Index 04/09/2023 10:01 AM SHIPBUILDING DRAFTSPERSON SPECIALTY CORE/PROT/END O Rubella Antibody IgG Positive 04/09/2023 10:01 AM SHIPBUILDING DRAFTSPERSON SPECIALTY CORE/PROT/END O Comment:Suggests previous ex posure or immunization and probable immunity. Blood BLOOD SPECIMEN / Unknown Venipuncture / Unknown 04/05/2023 4:50 PM SHIPBUILDING DRAFTSPERSON 04/05/2023 4:50 PM SHIPBUILDING DRAFTSPERSON Ashley Adams CLINICAL BUSINESS ANALYST PARTS DATA WRITER LAB - BLOOD OR DERABLES UM SPECIALTY CORE/PROT/ENDO UM Specialty Core/Prot/Endo [address] [facility] [address] [facility], [address] [phone] * ABO and Rh (04/05/2023 4:50 PM SHIPBUILDING DRAFTSPERSON) ABO/RH(D) A POS 04/05/2023 4:47 PM SHIPBUILDING DRAFTSPERSON [facility] BLOOD BANK SPECIMEN EXPIRATION DATE [id number] 04/05/2023 4:47 PM SHIPBUILDING DRAFTSPERSON [facility] BLOOD BANK Blood BLOOD SPECIMEN / Unknown Venipuncture / Unknown 04/05/2023 4:50 PM SHIPBUILDING DRAFTSPERSON 04/05/2023 4:50 PM SHIPBUILDING DRAFTSPERSON Ashley Adams APRN PARTS DATA WRITER LAB - BLOOD BA NK TEST ORDER Performing Organization Address City/[facility]/ZIP Co de Phone Number [facility] BLOOD BANK [address] [place] [address] from Last 3 Months Care Teams Core Java Software Engineer Relationship Specialty Start Date End Date Golden Garcia MD [address] [place], [place] [address] PCP - General Internal Medicine 04/18/16 Golden Garcia MD [address] [place], [place] [address] Assigned PCP 03/23/16
--- OUTSIDE RECORDS SUMMARY | 2023-04-26 08:28 | XMS_ITS | Encounter Summary ---
Author Name Unknown Organization [place] Address [address] [place] [address] Care Team Providers Care Diesel Engine Pipe Fitter Name Role Phone Golden Garcia MD Primary Care Provider [phone] Golden Garcia MD Unavailable [phone] Encounter Details Date Type Department Care [...] as of this encounter Care Teams Diesel Engine Pipe Fitter Relationship Specialty Start Date End Date Golden Garcia MD [address] [place] [address] PCP - General Internal Medicine 04/18/16 Golden Garcia MD [address] [place] [address] Assigned PCP 03/23/16 documented as of this encounter
--- OUTSIDE RECORDS SUMMARY | 2023-04-26 08:28 | XMS_ITS | Encounter Summary ---
Author Name Unknown Organization [place] Address [address] [place] [address] Care Team Providers Care Printing And Stamping Supervisor Name Role Phone Golden Garcia MD Primary Care Provider [phone] Golden Garcia MD Unavailable Golden Garcia MD Unavailable [phone] Karan Mancini MD Unavailable [phone] Vaughn Johnson MD Unavailable [phone] Vaughn Johnson MD Unavailable + [phone] Encounter Details Date Type Department Care Team (Late st Contact Info) Description 04/24/2016 MyC Medical Advice [place] [address] [address] [facility], [address] [place] [phone] Pippa Trinidad, OFFICE ASST Social History Tobacco Use Types Packs/Day Years [...] on filedocumented in this encounter Care Teams Printing And Stamping Supervisor Relationship Specialty Start Date End Date Golden Garcia MD [address] [place] [phone] PCP - General Internal Medicine 04/18/16 Golden Garcia MD [address] [place] [id number] PCP - Assigned PCP 03/23/16 05/21/18 Golden Garcia MD [address] [place] [address] Assigned PCP 03/23/16 Karan Mancini MD [address] [place] [address] Assigned Heart and Vascular Provider 06/27/20 07/03/20 Vaughn Johnson MD [address] [place] [address] Assigned Heart and Vascular Provider 07/04/20 12/30/21 Vaughn Johnson MD [address] [place] [address] Assigned Heart and Vascular Provider 06/20/20 06/26/20 documented as of this encounter
--- OUTSIDE RECORDS SUMMARY | 2023-04-26 08:28 | XMS_ITS | Encounter Summary ---
Author Name Unknown Organization [place] Address [address] [place] [address] Care Team Providers Care Dashboard Developer Name Role Phone Golden Garcia MD Primary Care Provider [phone] Golden Garcia MD Unavailable [phone] Karan Mancini MD Unavailable [phone] Vaughn Johnson MD Unavailable + [phone] Vaughn Johnson MD Unavailable + [phone] Encounter Details Date Type Department Care Team (Late st Contact Info) Description 08/01/2018 MyC Medical Advice [facility] [address] [facility], [address] [place] [address] Mago Ivy RN Social History Tobacco [...] on filedocumented in this encounter Care Teams Dashboard Developer Relationship Specialty Start Date End Date Golden Garcia MD [address] [facility] [address] [place] [id number] PCP - General Internal Medicine 04/18/16 Golden Garcia MD [address] [place] [address] Assigned PCP 03/23/16 Karan Mancini MD [address] [place] [address] Assigned Heart and Vascular Provider 06/27/20 07/03/20 Vaughn Johnson MD [address] [place] [address] Assigned Heart and Vascular Provider 07/04/20 12/30/21 Vaughn Johnson MD [address] [place] [address] Assigned Heart and Vascular Provider 06/20/20 06/26/20 documented as of this encounter
--- OUTSIDE RECORDS SUMMARY | 2023-04-26 08:28 | XMS_ITS | Encounter Summary ---
Author Name Unknown Organization [place] Address [address] [place] [address] Care Team Providers Care Deputy Fire Marshal Name Role Phone Golden Garcia MD Primary Care Provider [phone] Golden Garcia MD Unavailable [phone] Encounter Details Date Type Department Care Team (Late st Contact Info) Description 09/26/2022 10:00 AM CDT - 09/26/2022 11:59 PM CDT Hospital Encounter [facility] [place] [address], [address] [place] [id number] Non-Fv Credentialed Provider, Lab 743, Ostomy Wound Room, RN Golden Garcia, [address] [facility] [address] [place] [address] Discharge Disposition: Home or Self Care Social [...] Lissy Equipment: Product # Brand Description Pouch 68128 Don Lock n roll beige with filter Flange 86615 Don soft convex 1 1/8 precut Paste 8805 Don Adapt Powder 7906 [place] Adapt Liquid Skin Barrier 3344 3M [place] [address] [place] [address] Don Odor eliminator 8oz or packets Optional [...] for 2-5 minutes. Pouch Change: Twice weekly [facility] Nurse Specialist: Magali Questions: Madhuri [phone] () Follow-up Appointment: As needed or in 3 months Please call Madhuri [phone] () to request an appointment. documented in [...] of this encounter Progress Notes * Magali Jni, RN - 09/26/2022 10:00 AM CDT OUTPATIENT OSTOMY ASSESSMENT INTAKE Type of Stoma: Temporary Ileostomy Anticipated date of takedown: 3-6 months Diagnosis Pertinent to Stoma: Diverticulitis with perforation Surgery Date: 09/01/22 [facility] [place] Purpose of this visit: Checkup:postop Pertinent Information: New ileostomy, no concerns. Wanting to discuss pouching options Present for Teaching Session: Patient and Friend Tawana Kinesiologist Present: BRENDA Current Equipment: 70mm flat with [...] Nurse (Madhuri) via Vocera Dept. Office Number: [phone] documented in this encounter Plan of Treatment Not on file documented as of this encounter Visit Diagnoses Not on filedocumented in this encounter Additional Health Concerns Assessment Noted Time PHQ-9 Depression Total Score: 8 10/06/19 21 10:49 AM CDT documented as of this encounter Care Teams Deputy Fire Marshal Relationship Specialty Start Date End Date Golden Garcia MD [address] [place] [address] PCP - General Internal Medicine 04/18/16 Golden Garcia MD [address] [place] [address] Assigned PCP 03/23/16 documented as of this encounter
--- OUTSIDE RECORDS SUMMARY | 2023-04-26 08:28 | XMS_ITS | Encounter Summary ---
Author Name Unknown Organization [place] Address [address] [facility] [place] [address] Care Team Providers Care Grip Wrapper Name Role Phone Golden Garcia MD Primary Care Provider Golden Garcia MD Unavailable [phone] Golden Garcia MD Unavailable [phone] Karan Mancini MD Unavailable [phone] Vaughn Johnson MD Unavailable + [phone] Vaughn Johnson MD Unavailable + [phone] Reason for Visit * Reason Comments Medication Refill Encounter Details Date Type Department Care Team (Late st Contact Info) Description 06/27/[address] [place] [address] Golden Garcia MD [address] [facility] [address] [place], [place] [address] Medication Refill Social History Tobacco Use Types [...] PM CDT PHYSICAL with Golden Garcia MD [facility] [address] [facility] [address] Routing refill request to provider for review/approval because: Drug not on the [facility] refill protocol for indicated use - alopecia [...] PM CDT PHYSICAL with Golden Garcia MD [facility]) [address] [facility] [address] Requested Prescriptions Pending Prescriptions Disp Refills ??? [...] unspecified documented in this encounter Care Teams Grip Wrapper Relationship Specialty Start Date End Date Golden Garcia MD [address] [place] [address] PCP - General Internal Medicine 04/18/16 Golden Garcia MD [address] [place] [address] PCP - Assigned PCP 03/23/16 05/21/18 Golden Garcia MD [address] [place] [address] Assigned PCP 03/23/16 Karan Mancini MD [address] [place] [address] Assigned Heart and Vascular Provider 06/27/20 07/03/20 Vaughn Johnson MD [address] [place] [address] Assigned Heart and Vascular Provider 07/04/20 12/30/21 Vaughn Johnson MD [address] [place], [place] [address] Assigned Heart and Vascular Provider 06/20/20 06/26/20 documented as of this encounter
--- OUTSIDE RECORDS SUMMARY | 2023-04-26 08:28 | XMS_ITS | Encounter Summary ---
Author Name Unknown Organization [place] Address [address] [facility] [place] [address] Care Team Providers Care Assistant Professor Of Forestry Name Role Phone Golden Garcia MD Primary Care Provider Golden Garcia MD Unavailable [phone] Karan Mancini MD Unavailable [phone] Vaughn Johnson MD Unavailable + [phone] Vaughn Johnson MD Unavailable + [phone] Reason for Visit * Reason Comments Medication Refill finasteride Encounter Details Date Type Department Care Team (Late st Contact Info) Description 09/30/[address] [place] [address] Golden Garcia MD [address] [facility] [address] [place], [place] [address] Medication Refill (finasteride) Social History Tobacco Use [...] unspecified documented in this encounter Care Teams Assistant Professor Of Forestry Relationship Specialty Start Date End Date Golden Garcia MD [address] [place] [address] PCP - General Internal Medicine 04/18/16 Golden Garcia MD [address] [place] [address] Assigned PCP 03/23/16 Karan Mancini MD [address] [place] [address] Assigned Heart and Vascular Provider 06/27/20 07/03/20 Vaughn Johnson MD [address] [place] [address] Assigned Heart and Vascular Provider 07/04/20 12/30/21 Vaughn Johnson MD [address] [place] [address] Assigned Heart and Vascular Provider 06/20/20 06/26/20 documented as of this encounter
--- OUTSIDE RECORDS SUMMARY | 2023-04-26 08:28 | XMS_ITS | Encounter Summary ---
Author Name Unknown Organization [place] Address [address] [place] [address] Care Team Providers Care Trailer Chief Name Role Phone Golden Garcia MD Primary Care Provider [phone] Golden Garcia MD Unavailable [phone] Encounter Details Date Type Department Care Team [...] documented as of this encounter Care Teams Trailer Chief Relationship Specialty Start Date End Date Golden Garcia MD [address] [facility] [address] [place] [address] PCP - General Internal Medicine 04/18/16 Golden Garcia MD [address] [facility] [address] [place] [address] Assigned PCP 03/23/16 documented as of this encounter
--- OUTSIDE RECORDS SUMMARY | 2023-04-26 08:28 | XMS_ITS | Encounter Summary ---
Author Name Unknown Organization [place] Address [address] [place] [address] Care Team Providers Care Continuity Person Name Role Phone Golden Garcia MD Primary Care Provider [phone] Golden Garcia MD Unavailable [phone] Encounter Details Date Type Department Care Team [...] documented as of this encounter Care Teams Continuity Person Relationship Specialty Start Date End Date Golden Garcia MD [address] [facility] [address] [place] [address] PCP - General Internal Medicine 04/18/16 Golden Garcia MD [address] [facility] [address] [place] [address] Assigned PCP 03/23/16 documented as of this encounter
--- OUTSIDE RECORDS SUMMARY | 2023-04-26 08:28 | XMS_ITS | Encounter Summary ---
Author Name Unknown Organization [place] Address [address] [place] [address]. [place] [address] Care Team Providers Care Mobile Phone Salesperson Name Role Phone Golden Garcia MD Primary Care Provider [phone] Golden Garcia MD Unavailable [phone] Encounter Details Date Type Department Care Team (Late st Contact Info) Description 10/10/2022 Medical Correspondence [facility] [address] [place] [address] Outside, Provider Social History Tobacco Use [...] documented as of this encounter Care Teams Mobile Phone Salesperson Relationship Specialty Start Date End Date Golden Garcia MD [address] [place] [address] PCP - General Internal Medicine 04/18/16 Golden Garcia MD [address] [place] [address] Assigned PCP 03/23/16 documented as of this encounter
--- OUTSIDE RECORDS SUMMARY | 2023-04-26 08:28 | XMS_ITS | Encounter Summary ---
Author Name Unknown Organization [place] Address [address] [facility] [place] [address] Care Team Providers Care Bowling Floor Desk Clerk Name Role Phone Golden Garcia MD Primary Care Provider [phone] Golden Garcia MD Unavailable [phone] Golden Garcia MD Unavailable [phone] Karan Mancini MD Unavailable [phone] Vaughn Johnson MD Unavailable + [phone] Vaughn Johnson MD Unavailable + [phone] Reason for Visit * Reason Comments Medication Refill propecia Encounter Details Date Type Department Care Team (Late st Contact Info) Description 03/10/[address] [place] [address] Golden Garcia MD [address] [facility] [address] [place], [place] [address] Medication Refill (propecia ) Social History Tobacco [...] Swati Velasco CMA - 03/10/2016 3:50 PM APPLICATION HELPER Patient scheduled Physical with Dr. Garcia on Sunday03/27/2016 Dr. Garcia, Please refill pended if appropriate ICATION HELPER * Telephone Encounter - Alexandra Heredia RN - 03/10/2016 12:22 PM CST Left message on answering machine for patient to call back. Never been seen at this clinic. Not a [facility] patient. Not sure if he was previous SIM patient. Would need appointment to [facility] in order to proceed with 30 day RX. Alexandra Heredia RN, BSN ICATION HELPER * Telephone Encounter - Felicita Silverio CMA - 03/10/2016 11:50 AM APPLICATION HELPER finasteride (PROPECIA) 1 MG tablet -- ?? Sig: Take 1 mg by mouth daily ?? Class: Historical Last Written Prescription Date: Historical entry from 2013 Last Fill Quantity: --, # refills: -- Last Office Visit with [facility], [facility] or [facility] prescribing provider: no seen here I do not see any [place] records scanned into [employer] ICATION HELPER documented in this encounter Plan of Treatment Not on file documented as of this encounter Visit Diagnoses Diagnosis Alopecia- Primary Alopecia, unspecified documented in this encounter Care Teams Bowling Floor Desk Clerk Relationship Specialty Start Date End Date Golden Garcia MD [address] [place] [address] PCP - General Internal Medicine 04/18/16 Golden Garcia MD [address] [place] [address] PCP - Assigned PCP 03/23/16 05/21/18 Golden Garcia MD [address] [place] [address] Assigned PCP 03/23/16 Karan Mancini MD [address] [place] [address] Assigned Heart and Vascular Provider 06/27/20 07/03/20 Vaughn Johnson MD [address] [place] [address] Assigned Heart and Vascular Provider 07/04/20 12/30/21 Vaughn Johnson MD [address] [place] [address] Assigned Heart and Vascular Provider 06/20/20 06/26/20 documented as of this encounter
--- OUTSIDE RECORDS SUMMARY | 2023-04-26 08:28 | XMS_ITS | Encounter Summary ---
Author Name Unknown Organization [place] Address [address] [place] [address] Care Team Providers Care Hematology Nurse Name Role Phone Golden Garcia MD Primary Care Provider [phone] Golden Garcia MD Unavailable [phone] Reason for Visit * Reason Onset Date Comments Appointment 09/15/2022 Encounter Details Date Type Department Care Team (Late st Contact Info) Description 09/15/2022 Telephone [facility] [address], [address] [place] [phone] Jeronimo Miller, RN Appointment Social History Tobacco [...] returned call and left VM for patient. [facility] nurse would be able to accomodate a visit the week of 09/25 On either 09/26 or 09/28 if this is a routine visit. However if patient is having leakage or Ostomy problems we could see him 09/20, 09/21 or 09/22. Will await patient return call to schedule appointment. Jeronimo Miller RN CWOCN -Securely message with [employer]) - can reach individually by name or [...] documented as of this encounter Care Teams Hematology Nurse Relationship Specialty Start Date End Date Golden Garcia MD [address] [place] [address] PCP - General Internal Medicine 04/18/16 Golden Garcia MD [address] [place] [address] Assigned PCP 03/23/16 documented as of this encounter
--- OUTSIDE RECORDS SUMMARY | 2023-04-26 08:28 | XMS_ITS | Clinical Summary ---
Author Name Unknown Organization Counts include 234 beds at the [facility] Address [address] [place] [address] Care Team Providers Care Line Maintenance Supervisor Name Role Phone Golden Garcia MD Primary Care Provider [phone] Source Comments You are receiving this document as you are listed as the primary care provider,follow-up provider, or the patient has been referred to you for consultation.This is in compliance with the Medicare and[facility] EHR Incentive Program,which states Providers who transition their patient to another setting of careor provider of care or refers their patient to another provider of care shouldprovide summary care record for each transition of care or referral. [facility] Allerg[facility] Active Allergy Reactions Criticality Noted Date [...] Comments Blood Pressure 114/72 04/11/2018 11:43 AM NETWORK SUPPORT ANALYST Pulse 78 11/20/2004 10:14 AM CDT Temperature 36.6 ??C (97.9 ??F) 04/11/2018 11:[address] Respiratory Rate 16 11/20/2004 10:14 AM CDT Oxygen Saturation - - Inhaled Oxygen Concentration - - Weight 108.9 kg (240 lb) 04/01/2019 11:06 AM NETWORK SUPPORT ANALYST Height 195.6 cm (6' 5) 04/01/2019 11:06 AM NETWORK SUPPORT ANALYST Body Mass Index 28.46 04/01/2019 11:06 AM NETWORK SUPPORT ANALYST Plan of Treatment Health Maintenance Due Date Last Done Comments Colon Cancer Screening Plan Due 1972 Hep C Screening (Preventive Services) 1972 HepB (1) 1972 PSA Screening Discussion 1972 HIV Screening (Preventive Services) 1988 Adult Preventive Visit 1990 Cholesterol 09/29/2007 Zoster/Shingles (1 of 2) 2022 COVID-19 Vaccine ( season) 2022 02/18/2021, 07/29/2020, 07/01/2020 Influenza (#1) 2022 12/18/2019, 05/17, 01/23/2018, Additional [...] age to complete this topic Care Teams Line Maintenance Supervisor Relationship Specialty Start Date End Date Golden Garcia MD [address] [facility] [address] [place] [address] [facility] - General 07/28/13
--- OUTSIDE RECORDS SUMMARY | 2023-04-26 08:28 | XMS_ITS | Encounter Summary ---
Author Name Unknown Organization [place] Address [address] [place] [address] Care Team Providers Care Leaf Stripper Name Role Phone Ivonne Nguyen MD Primary Care Provider [phone] Ivonne Nguyen MD Unavailable [phone] Reason for Visit * Reason Comments Pre-Op Exam Recheck Medication Discuss anti-anxiety Encounter Details Date Type Department Care Team (Late st Contact Info) Description 01/23/2023 8:30 AM FOOD PROCESSING PLANT MANAGER Office Visit [facility] [address] [place] [address], [address] [place] [address] Ivonne Nguyen MD [address] [facility] [address] [place] [address] Preop general physical exam (Primary [...] Comments Blood Pressure 139/82 01/23/2023 8:32 AM FOOD PROCESSING PLANT MANAGER Pulse 95 01/23/2023 8:32 AM FOOD PROCESSING PLANT MANAGER Temperature 37.4 ??C (99.4 ??F) 01/23/2023 8:32 AM CS T Respiratory Rate 18 01/23/2023 8:32 AM FOOD PROCESSING PLANT MANAGER Oxygen Saturation 96% 01/23/2023 8:32 AM FOOD PROCESSING PLANT MANAGER Inhaled Oxygen Concentration - - Weight 113.4 kg (250 lb) 01/23/2023 8:32 AM FOOD PROCESSING PLANT MANAGER Height 194.9 cm (6' 4.75) 01/23/2023 8:32 AM CS T Body Mass Index 29.84 01/23/2023 8:32 AM FOOD PROCESSING PLANT MANAGER documented in this encounter Progress Notes * Ivonne Nguyen MD - 01/23/2023 8:30 AM CST [address], [address] [facility] [address] Primary Provider: Ivonne Nguyen Pre-op Performing Provider: IVONNE NGUYEN PREOPERATIVE EVALUATION: Today's date: 01/23/2023 Jarad is a 52 year old male who presents for a preoperative evaluation. Surgical Information: Surgery/Procedure: Ileostomy take down Surgery Location: [facility] Surgeon: Leonarda Surgery Date: 01/29/23 Time of Surgery: Unknowns Where patient plans to recover: At home with family Fax number for surgical facility: Note does not need to be faxed, will be available electronically in [facility]. Assessment & Plan The proposed surgical procedure [...] evaluation report is provided to requesting physician. PROCESSING PLANT MANAGER documented in this encounter Miscellaneous Notes * Result Encounter Note - Ivonne Nguyen MD - 01/23/2023 8:30 AM CST NSR rate 75 RBBB ; OK for surgery PROCESSING PLANT MANAGER * Result Encounter Note - Ivonne Nguyen [...] be easier to implement. Sincerely, Dr. Nguyen PROCESSING PLANT MANAGER documented in this encounter Plan of Treatment Not on file documented as of this encounter Procedures Procedure Name Priority Date/Time Associated Diagnosis Comments PROSTATE SPECIFIC ANTIGEN SCREEN Routine 01/23/2023 9:32 AM FOOD PROCESSING PLANT MANAGER Prostate cancer screening POTASSIUM Routine 01/23/2023 9:32 AM FOOD PROCESSING PLANT MANAGER Preop general physical exam LIPID REFLEX TO DIRECT LDL PANEL Routine 01/23/2023 9:32 AM FOOD PROCESSING PLANT MANAGER Lipid screening HEMOGLOBIN A1C Routine 01/23/2023 9:32 AM FOOD PROCESSING PLANT MANAGER Preop general physical exam HEMOGLOBIN Routine 01/23/2023 9:32 AM FOOD PROCESSING PLANT MANAGER Preop general physical exam CREATININE Routine 01/23/2023 9:32 AM FOOD PROCESSING PLANT MANAGER Preop general physical exam EKG 12-LEAD COMPLETE W/READ - CLINICS Routine 01/23/2023 Preop general physical exam documented in this encounter Results * (ABNORMAL) Lipid panel reflex to direct LDL Fasting (01/23/2023 9:32 AM FOOD PROCESSING PLANT MANAGER) Cholesterol 195 <200 mg/dL 01/23/2023 1:53 PM FOOD PROCESSING PLANT MANAGER [facility] Triglycerides 241(H) <150 mg/dL 01/23/2023 1:53 PM FOOD PROCESSING PLANT MANAGER [facility] Direct Measure HDL 37(L) >=40 mg/dL 01/23/2023 1:53 PM FOOD PROCESSING PLANT MANAGER [facility] LDL Cholesterol Calculated 110(H) <=100 mg/dL 01/23/2023 1:53 PM FOOD PROCESSING PLANT MANAGER [facility] Non HDL Cholesterol 158(H) <130 mg/dL 01/23/2023 1:53 PM FOOD PROCESSING PLANT MANAGER [facility] Blood BLOOD SPECIMEN / Unknown Venipuncture / Unknown 01/23/2023 9:32 AM FOOD PROCESSING PLANT MANAGER 01/23/2023 9:32 AM FOOD PROCESSING PLANT MANAGER Narrative [facility] - 01/23/2023 1:53 PM FOOD PROCESSING PLANT MANAGER Cholesterol Desirable: ??<200 mg/dL Triglycerides Normal: ??Less [...] - BLOOD ORDERABL ES Performing Organization Address [facility] Phone Number [facility] [address] [facility], [address] [address], [facility] [phone] * PSA, screen (01/23/2023 9:32 AM FOOD PROCESSING PLANT MANAGER) Prostate Specific Antigen Screen 0.26 0.00 - 3.50 ng/mL 01/23/2023 1:53 PM FOOD PROCESSING PLANT MANAGER [facility] Blood BLOOD SPECIMEN / Unknown Venipuncture / Unknown 01/23/2023 9:32 AM FOOD PROCESSING PLANT MANAGER 01/23/2023 9:32 AM FOOD PROCESSING PLANT MANAGER Narrative [facility] - 01/23/2023 1:53 PM FOOD PROCESSING PLANT MANAGER This result is obtained using the Isatu Elecsys total PSA method on the yannick e801 immunoassay analyzer. Results obtained with different assay methods or kits cannot be used interchangeably. Ivonne Nguyen MD LAB - BLOOD ORDERABL ES Performing Organization Address [facility] Phone Number [facility] [address] [place] [address], [address] [address], [facility] [phone] * (ABNORMAL) Creatinine (01/23/2023 9:32 AM FOOD PROCESSING PLANT MANAGER) Creatinine 1.24(H) 0.67 - 1.17 mg/dL 01/23/2023 1:53 PM FOOD PROCESSING PLANT MANAGER [facility] GFR Estimate 71 >60 mL/min/1.7 3m2 01/23/2023 1:53 PM FOOD PROCESSING PLANT MANAGER [facility] Blood BLOOD SPECIMEN / Unknown Venipuncture / Unknown 01/23/2023 9:32 AM FOOD PROCESSING PLANT MANAGER 01/23/2023 9:32 AM FOOD PROCESSING PLANT MANAGER Ivonne Nguyen MD LAB - BLOOD ORDERABL ES LABORATORY [facility] [address] [facility], [address] [place] [address], [facility] [phone] * Hemoglobin (01/23/2023 9:32 AM FOOD PROCESSING PLANT MANAGER) Hemoglobin 16.2 13.3 - 17.7 g/dL 01/23/2023 9:35 AM FOOD PROCESSING PLANT MANAGER LABORATORY Blood BLOOD SPECIMEN / Unknown Venipuncture / Unknown 01/23/2023 9:32 AM FOOD PROCESSING PLANT MANAGER 01/23/2023 9:32 AM FOOD PROCESSING PLANT MANAGER Ivonne Nguyen MD LAB - BLOOD ORDERABL ES Performing Organization Address City/[facility] Co de Phone Number LABORATORY [facility] [address] [place] [address], [address] [place] [address], [facility] [phone] * (ABNORMAL) Hemoglobin A1c (01/23/2023 9:32 AM FOOD PROCESSING PLANT MANAGER) Hemoglobin A1C 6.1(H) 0.0 - 5.6 % 01/23/2023 9:47 AM FOOD PROCESSING PLANT MANAGER [facility] Comment: Normal <5.7% Prediabetes 5.7-6.4% ?? Diabetes 6.5% or higher Note: Adopted from ADA consensus guidelines. Blood BLOOD SPECIMEN / Unknown Venipuncture / Unknown 01/23/2023 9:32 AM FOOD PROCESSING PLANT MANAGER 01/23/2023 9:32 AM FOOD PROCESSING PLANT MANAGER Ivonne Nguyen MD LAB - BLOOD ORDERABL ES LABORATORY [facility] [address] [place] [address], [address] [place] [address], [facility] [phone] * Potassium (01/23/2023 9:32 AM FOOD PROCESSING PLANT MANAGER) Potassium 4.8 3.4 - 5.3 mmol/L 01/23/2023 1:53 PM FOOD PROCESSING PLANT MANAGER [facility] Blood BLOOD SPECIMEN / Unknown Venipuncture / Unknown 01/23/2023 9:32 AM FOOD PROCESSING PLANT MANAGER 01/23/2023 9:32 AM FOOD PROCESSING PLANT MANAGER Ivonne Nguyen MD LAB - BLOOD ORDERABL ES [facility] [address] [facility] [address] [facility], [address] [place] [address], [facility] [phone] * EKG 12-lead complete w/read - Clinics [...] documented as of this encounter Care Teams Leaf Stripper Relationship Specialty Start Date End Date Ivonne Nguyen MD [address] [place] [address] PCP - General Internal Medicine 04/18/16 Ivonne Nguyen MD [address] [place] [address] Assigned PCP 03/23/16 documented as of this encounter
--- OUTSIDE RECORDS SUMMARY | 2023-04-26 08:28 | XMS_ITS | Encounter Summary ---
Author Name Unknown Organization [place] Address [address] [place] [address] Care Team Providers Care Scow Derrick Operator Name Role Phone Golden Garcia MD Primary Care Provider [phone] Golden Garcia MD Unavailable [phone] Reason for Visit * Reason Comments Medication Refill Encounter Details Date Type Department Care Team (Late st Contact Info) Description 06/20/[address] [place] [address] Golden Garcia MD [address] [facility] [address] [place] [address] Medication Refill Social History Tobacco [...] documented as of this encounter Care Teams Scow Derrick Operator Relationship Specialty Start Date End Date Golden Garcia MD [address] [place] [id number] PCP - General Internal Medicine 04/18/16 Golden Garcia MD [address] [place] [address] Assigned PCP 03/23/16 documented as of this encounter
--- OUTSIDE RECORDS SUMMARY | 2023-04-26 08:28 | XMS_ITS | Encounter Summary ---
Author Name Unknown [facility] Address [address] [place] [address] Care Team Providers Care Fiber Designer Name Role Phone Golden Garcia MD Primary Care Provider [phone] Golden Garcia MD Unavailable [phone] Encounter Details Date Type Department Care Team (Late st Contact Info) Description 09/15/2022 [facility] [address] [place] [address] Chely Cruz, RN Social History [...] Cruz RN - 09/15/2022 3:56 PM CDT [facility] Received call from patient 09/15 with voicemail 14:32 stating he is returning call for appointment ostomy marking and 09/26 please with phone number. Call returned, no answer, left voicemail for patient stating an appointment for September 26 for 10AM will be created, check in at [facility], call back for questions. Chely CWLENAN 1st: Voc[employer] Connect, call Chely Cruz or call Group [facility] Nurse (2nd option: leave a voicemail at Dept. Office Number: [phone]. Messages checked occasionally M-F) documented in this encounter Plan of Treatment Not on file documented as of this encounter Visit Diagnoses Not on filedocumented in this encounter Additional Health Concerns Assessment Noted Time PHQ-9 Depression Total Score: 8 10/06/19 21 10:49 AM CDT documented as of this encounter Care Teams Fiber Designer Relationship Specialty Start Date End Date Golden Garcia MD [address] [place] [id number] PCP - General Internal Medicine 04/18/16 Golden Garcia MD [address] [place] [id number] Assigned PCP 03/23/16 documented as of this encounter
[2023-04-26] MEDS: LACTATED RINGERS 1000 ML 1,000 ML 100 ML IV ×2 (09:32→11:25)
[2023-04-26] MEDS: SODIUM CHLORIDE 0.9 % (FLUSH) 10 ML SYRINGE IVF (09:32)
[2023-04-26] MEDS: CLINDAMYCIN 900 MG/50 ML-D5W IVPB (09:44)
[2023-04-26] MEDS: BUPIVACAINE 0.25% 30 ML INJECTION (11:30)
--- NOTE | 2023-04-26 12:23 | PM.GSPRC ---
Operative Note Date of procedure: 04/26/23 Procedure Description: After discussing the risks and benefits of the procedure, the patient signed informed consent.? The operative site was marked and the patient was brought to the operating room and placed on the operating table in supine position.? Care was taken to pad the patient's pressure points.?? The patient was then [intubated/given sedation] by anesthesia.?? The operative site was then prepped and draped in the usual sterile fashion.? A time-out was then performed. Sterile dressings were then applied. ? The patient was then woken and transported to the recovery area in stable condition. ? The patient tolerated the procedure well. Surgeon: Linda Paige MD
--- NOTE | 2023-04-26 12:34 | P.NB_ITS ---
Nerve Block Nerve Block Time Seen by Provider: 12:16 Date Seen: 04/26/23 Type of block requested by surgeon for post-operative analgesia: TAP Side: bilateral Time out performed: Yes Verification of patient name: Yes Verification of date of : Yes Site marking: not applicable Name of person performing procedure: Ford Continuous monitoring Was continuous monitoring of O2 sat, B/P, purse framer, recorded every 15 minutes?: Yes Procedure Checklist: sterile prep and needles Ultrasound guided. Images saved: Yes Medications given in 5ml increments after negative aspiration: Marcaine %: 0.25 mL: 30 Needle gauge: 20 and Exparel mL: 10 Needle gauge: 20 Patient tolerated procedure well: Yes Block Charges Block Charge (with Pro Fee): TAP Bilateral Use of Ultrasound Machine for Block: Yes- US Guidance/pain block
--- NOTE | 2023-04-26 12:34 | W.ANESCHARGE ---
Anesthesia Charges Start Date/Time Anesthesia Start Date: 04/26/23 Anesthesia Start Time: 09:34 Stop Date/Time Anesthesia Stop Date: 04/26/23 Anesthesia Stop Time: 12:28
[2023-04-26] MEDS: HYDROmorphone 0.5 mg/0.5 ml inj IVP (12:44)
[2023-04-26] MEDS: HYDROCODONE-ACETAMIN 5-325 MG 1 TAB PO (13:54)
--- NOTE | 2023-04-26 14:35 | PM.GSPRC ---
Operative Note Date of procedure: 04/26/23 Pre-op diagnosis: Incisional hernia Post-op diagnosis: Same Type of Procedure: Laparoscopic ventral incisional hernia repair with mesh Indications: The patient is a 52-year-old male who underwent exploratory laparotomy Procedure Description: After discussing the risks and benefits of the procedure, the patient signed informed consent.? The operative site was marked and the patient was brought to the operating room and placed on the operating table in supine position.? Care was taken to pad the patient's pressure points.?? The patient was then intubated by anesthesia.?? The operative site was then prepped and draped in the usual sterile fashion.? A time-out was then performed. Enters the abdomen was obtained via Visiport technique in the left upper quadrant. The layers of the abdominal wall were visualized. The abdomen was insufflated and briefly surveyed for signs of injury. There were none. There were adhesions between the anterior abdominal wall in the midline and the omentum. The hernia was visible at the superior aspect of the incision. There was some omental adhesions here. Two working ports were placed in the left lateral and left lower quadrant. These were 5 mm ports. LigaSure was then used to carefully dissect the omental adhesions from the abdominal wall. This was taken down to the inferior aspect of the incision. There was a 4 x 3 cm hernia noted at the superior aspect. Below this extending to just below the umbilicus. The fascia in the midline off to the right appeared to be thinned. There was no overt hernia, however the tissue was bowed out and appeared weakend. In the right lateral abdomen, the patient was noted to have small bowel adhesion between the abdominal wall. There were omental adhesions asked the patient's ileostomy site. These were taken down. The fascia was examined. It appeared intact here, however again it did appear to be bowing out slightly. Clinically as well as radiographically the patient did not have a hernia through the anterior fascia, however it seemed as though possibly the posterior fascia was weak. This area was just outside of the area where I would place the hernia mesh. I elected to over-sew the posterior fascia. I 1st began by closing the hernia defect primarily. This was done with the lock suture in a running fashion. I incorporated the hernia sac in this closure to close the space. Once this was done I turned my attention to the site of the ileostomy. The posterior fascia was reapproximated cranial to caudal again in a running fashion. This came together without significant tension. I then turned my attention to the mesh placement. I measured the dimensions of the hernia defect as well as the weakened area below the umbilicus. This measured 4 cm across at its widest, and was 8 cm long. I obtained a piece of 10 x [address] mesh with an Echo positioning device. I placed trans fascial sutures in 4 quadrants. This was then placed into the abdomen through a 10 mm port which was placed in the patient's midline. The port was removed, though the positioning suture was passed through the opening. I oversewed the skin with 3-0 Vicryl suture to prevent pneumoperitoneum escaping. I decreased the abdominal pressure to 11 and, measured using a needle through the abdominal wall the locations of the edges of the mesh. I then created stab incisions in using a Cipriano-Ivana device passed each end the trans fascial sutures. The mesh was then pulled up into place and found to be centered over the hernia. Using an absorbable Tacker and then tacked the mesh circumferentially and tied the trans fascial sutures. The positioning device was then removed from the abdomen intact. The ports were then removed and the abdomen was desufflated. The 10 mm port site overlying the center the mesh was closed with 3-0 Vicryl suture. Skin was closed with 4-0 Monocryl in a running fashion. The port sites were closed with 4-0 Monocryl interrupted suture. Glue was then used to cover the stab incisions for the transfascial sutures as well as all port sites. The patient was then woken and transported to the recovery area in stable condition. ? The patient tolerated the procedure well. Findings: 4x3 cm hernia defect at the upper aspect of the patient's abdominal wall, with weakening noted along the midline wound about the umbilicus, bowing outward. Anesthesia: GETA Surgeon: Linda Paige MD Estimated blood loss (mL): 10 Condition: stable Disposition: PACU
== END 2023-04-26 14:50 | disposition home or self-care (01) ==
PROVIDERS: Visit Provider Surgery
PROC: 0WQF4ZZ Repair Abdominal Wall, Percutaneous Endoscopic Approach (ICD-10-PCS; CPT 49593; principal; 2023-04-26 10:00)
DX: K43.2 Incisional hernia without obstruction or gangrene (principal); G89.18 Other acute postprocedural pain
CPT/HCPCS: 49593; 00752; 64488; 76942; A4467; A9270; C1781; C9290; J0665; J0736; J1100; J1170; J1885; J2250; J2371; J2710; J3010; J3490; J7120